=== PATIENT | female | born 1935 | race Caucasian/White ===

== ENCOUNTER 2017-05-01 14:47 | Emergency (ER) | payer MEDICARE ==
[2017-05-01 15:07] VITALS: PULSE 65
--- NOTE | 2017-05-01 16:51 | ED ---
Fall HPI - General Chief Complaint: Fall Stated Complaint: [facility] Sent/Neck Pain Time Seen by Provider: 05/01/17 15:12 Source: patient, family, RN notes reviewed Mode of arrival: ambulatory - History of Present Illness Initial Comments: Patient is a 82-year-old female presents to the emergency room for evaluation of fall injury. Patient states yesterday she was working in the garden turning on the water and slipped on the water and fell hitting left side of her forehead and landing on her right hand. Patient denies loss of consciousness. Patient states that she did have a lump on the left side of her forehead afterwards. Patient states it has subsided after applying ice to it. Patient states she woke up this morning with neck pain. Patient states that she noticed swelling over her right hand. Patient states that she went to [facility] with a did get an x-ray of her hand. Patient states that she sprained her middle finger of her hand. Patient states that nothing was fractured. Patient states because of the neck pain she was sent here to get a CT. Patient denies taking blood thinners. Patient denies any significant headache or dizziness. Patient states she's having neck pain every time she moves her neck from left to right. Patient states she has a grinding sensation every time she moves her neck. Patient denies any tingling going down her arms or legs. Patient denies weakness in her arms and legs. Patient denies any low back pain. Patient denies any other injuries during incident. - Related Data Home Medications Medication Instructions Recorded Confirmed PARoxetine [Paxil] 20 mg PO DAILY 08/10/14 05/01/17 metFORMIN HCL [Glucophage] 850 mg PO BID-W/MEALS 08/10/14 05/01/17 Aspirin 81 mg PO DAILY 12/07/14 05/01/17 Cholecalciferol [Vitamin D3] 2,000 unit PO DAILY 12/07/14 05/01/17 Losartan/Hydrochlorothiazide 1 tab PO DAILY 08/24/16 05/01/17 [Hyzaar 100-12.5 Tablet] Pravastatin Sodium 80 mg PO HS 05/01/17 05/01/17 Allergies Allergy/AdvReac Type Severity Reaction Status Date / Time No Known Allergies Allergy Verified 05/01/17 15:53 Review of Systems ROS Statement: Those systems with pertinent positive or pertinent negative responses have been documented in the HPI. ROS Other: All systems not noted in ROS Statement are negative. Past Medical History Past Medical History: Cancer, Diabetes Mellitus, Hyperlipidemia, Hypertension, Osteoarthritis (OA) Additional Past Medical History / Comment(s): hx of melanoma History of Any Multi-Drug Resistant Organisms: None Reported Past Surgical History: Hysterectomy Past Anesthesia/Blood Transfusion Reactions: No Reported Reaction Past Psychological History: Depression Smoking Status: Never smoker Past Alcohol Use History: None Reported Past Drug Use History: None Reported - Past Family History Father Family Medical History: Myocardial Infarction ([place]) General Exam - General Exam Comments Initial Comments: Sitting in exam room, no distress. C-collar on. Limitations: no limitations, physical limitation General appearance: alert, in no apparent distress Head exam: Present: normocephalic Expanded Head exam: Present: contusion (Small contusion over left forehead) Eye exam: Present: normal appearance, PERRL, EOMI Pupils: Present: normal accommodation Neck exam: Present: normal inspection, tenderness (Tenderness on palpating over bilateral paraspinal muscles) Respiratory exam: Present: normal lung sounds bilaterally. Absent: respiratory distress Cardiovascular Exam: Present: regular rate, normal rhythm, normal heart sounds Extremities exam: Present: normal inspection Back exam: Present: normal inspection Neurological exam: Present: alert, oriented X3, CN II-XII intact, normal gait Psychiatric exam: Present: normal affect, normal mood Skin exam: Present: warm, dry, intact, normal color. Absent: rash Course Vital Signs 05/01/17 05/01/17 15:03 17:13 Temperature 98.6 F 98.9 F Pulse Rate 65 65 Respiratory 20 18 Rate Blood Pressure 200/91 172/79 O2 Sat by Pulse 97 97 Oximetry Medical Decision Making - Medical Decision Making Patient is 82-year-old female since emergency room for evaluation of fall injury. Patient was sent here for [facility] to receive a CT of her brain and C-spine. Brain and C-spine CT negative for any acute findings. Patient does noted to have arthritic changes in her neck which might be causing the grinding sensation. Patient states the Tylenol has been helping her symptoms. Advised patient to continue taking Tylenol to follow-up with her primary care provider. Patient states she understands everything that was discussed with her. Return parameters discussed. Case discussed Dr. Shell. - Radiology Data Radiology results: report reviewed, image reviewed Disposition Clinical Impression: Fall, Closed head injury, Neck strain Disposition: HOME SELF-CARE Condition: Good Instructions: Cervical Strain (ED), Fall Prevention for Older Adults (ED), Head Injury (ED) Additional Instructions: Ice on and off for 10-15 minutes for the next 24-48 hours. Take Tylenol as needed for pain. Please follow-up with primary care provider in 24-48 hours for reevaluation. If new symptoms develop or symptoms worsen, please return to the ER. Referrals: Mehrdad Waldron MD [Primary Care Provider] - 1-2 days Time of Disposition: 17:19
--- NOTE | 2017-05-01 17:04 | CT ---
EXAMINATION TYPE: CT brain tiffany ocampo con DATE OF EXAM: 05/01/2017 COMPARISON: NONE HISTORY: Fall today with Left frontal injury headache and neck pain. CT DLP: 1867 mGycm. Automated Exposure Control for Dose Reduction was Utilized. TECHNIQUE: CT scan of the head and cervical spine are performed without contrast. FINDINGS: There is no acute intracranial hemorrhage or midline shift identified. There is diffuse v entricular and sulcal prominence. The calvarium is intact. The globes are intact and the visualized sinuses are predominately clear. There is small mucous retention cyst or polyp in the posterior left ethmoid sinus. Cervical spine is visualized in its entirety from C1 through upper thoracic levels and demonstrates s atisfactory alignment without evidence of acute fracture or dislocation. Prevertebral soft tissue ap pears within normal limits. The C1-C2 articulation is within normal limits on the coronal images. Osseous structures are demineralized. Vertebral body heights are maintained. There is moderate disc s pace narrowing and spurring at C5-C6 and C6-C7 levels. Sclerotic lesion in the spinous process at C5 level is of uncertain etiology favored benign. There is prominent lateral spurring in the upper to mi dthoracic spine. There is heterogeneous prominent left thyroid lobe. There is rim calcified 1.2 cm no dule and smaller right thyroid lobe on axial image 60. Lung apices are clear with 3 mm calcified subp leural nodule laterally left lung on axial image 73. There is mild to moderate calcified plaque at bi lateral carotid bulbs. There are multilevel uncovertebral facet degenerative changes bilaterally, rig ht greater than left. IMPRESSION: 1. There is no acute fracture or dislocation evident in the cervical spine. 2. No acute intracranial hemorrhage or midline shift is seen. Moderate diffuse cerebral atrophy is no damir.
[2017-05-01 17:14] VITALS: BP 172/79; RESP 18; TEMP 98.9
== END 2017-05-01 17:28 | disposition home or self-care (01) ==
LOC: EC 14:47
DX: S16.1XXA Strain of muscle, fascia and tendon at neck level, initial encounter (principal); S00.83XA Contusion of other part of head, initial encounter; E11.9 Type 2 diabetes mellitus without complications; E78.5 Hyperlipidemia, unspecified; I10 Essential (primary) hypertension; M19.90 Unspecified osteoarthritis, unspecified site; F32.9 Major depressive disorder, single episode, unspecified; Z79.82 Long term (current) use of aspirin; Z79.899 Other long term (current) drug therapy; Z79.84 Long term (current) use of oral hypoglycemic drugs; Z85.820 Personal history of malignant melanoma of skin; W01.10XA Fall on same level from slipping, tripping and stumbling with subsequent striking against unspecified object, initial encounter; Y93.89 Activity, other specified; Y92.89 Other specified places as the place of occurrence of the external cause
CPT/HCPCS: 70450; 72125; 99283

== ENCOUNTER → 2017-07-28 | Outpatient (CLI) | payer MEDICARE ==
--- NOTE | 2017-07-28 10:30 | US ---
EXAMINATION TYPE: US thyroid st tissue head/neck DATE OF EXAM: 07/28/2017 COMPARISON: NONE CLINICAL HISTORY: E05.90 subclinical [address]. Abnormal levels[address] CT showed nodule GLAND SIZE: Right Lobe: 4.1 x 2.1 x 2.0 cm Overall Parenchyma: homogenous Left Lobe: 4.0 x 3.2 x 3.0 cm Overall Parenchyma: heterogeneous Isthmus Thickness: 0.3 cm NODULES RIGHT: # of nodules measured on right: 4 1. 1.7 X 1.5 x 1.5 cm hypoechoic solid nodule at the mid pole with well-defined margins; with a sof t tissue rim outside the calcification. This nodule is taller than wide and shows intranodular vascu larity. Prior size: No previous 2. 0.5 X 0.5 cm calcified solid lesion at the upper pole with shadowing. Prior size: No previous 3. 0.9 X 0.8 x 0.7 cm hypoechoic solid nodule at the lower pole with well-defined margins. This nod ule is taller than wide and shows intranodular vascularity. Prior size: No previous 4. 0.4 X 0.6 x 0.4 cm cystic nodule at the lower pole with well-defined margins. This nodule is wid er than tall and shows no intranodular vascularity. Prior size: No previous LEFT: # of nodules measured on left: 1 1. 3.5 X 2.9 x 2.9 cm isoechoic solid nodule at the mid/lower pole with poorly defined margins. Th is nodule is taller than wide and shows intranodular vascularity. Prior size: No previous ISTHMUS: # of nodules measured in the isthmus: 0 Bilateral neck scanned, no evidence of lymphadenopathy. IMPRESSION: Multiple bilateral thyroid nodules, the largest on the left measures 3.5 cm. This nodule is of modera te suspicion and fine needle aspiration is recommended. Surveillance is recommended for the remaining thyroid nodules.
--- NOTE | 2017-07-29 14:30 | NM ---
EXAMINATION TYPE: NM thyroid image w uptake DATE OF EXAM: 07/29/2017 COMPARISON: Thyroid ultrasound from yesterday. HISTORY: Subclinical hyperthyroidism per order.Weight changes and insomnia per patient. TECHNIQUE: After the intravenous administration of 11.2 mCi Tc 99m Sodium Pertechnetate, thyroid imag ing is performed 10 minutes post injection. Thyroid iodine uptake is calculated after the oral admini stration of20 NM uCi I-131 capsule. FINDINGS: Scan images show diminished uptake in the right thyroid lobe versus opposite left thyroid l obe. There is slightly poor uptake in upper pole aspect of left thyroid versus lower pole. Large lef t thyroid nodule as described lower pole level on ultrasound during real-time scanning. The 4 hour io dine uptake is calculated at 4% (normal range 8-14%), diminished from the normal range. The 24-hour i odine uptake is calculated at 9%, diminished from the normal range (normal range 15-35%). IMPRESSION: Diminished uptake suggest hypothyroidism. Diminished uptake right thyroid lobe is concern ing for cold nodules especially for the dominant right-sided 1.7 cm mid pole solid nodule increasing suspicion for malignancy.
== END | disposition home or self-care (01) ==
LOC: RADUSMAIN 09:23
PROVIDERS: ATTEND Internal Medicine Endocrinology, Diabetes & Metabolism
DX: E04.2 Nontoxic multinodular goiter (principal)
CPT/HCPCS: 76536; 78014; A9528; A9512

== ENCOUNTER → 2017-07-29 | Outpatient (CLI) | payer MEDICARE ==
[2017-07-29 12:07] LABS: ALT 49 U/L (9-52); AST 25 U/L (14-36); Alkaline Phosphatase 107 U/L (38-126); Anion Gap 8 mmol/L; Blood Urea Nitrogen 16 mg/dL (7-17); Calcium 9.9 mg/dL (8.4-10.2); Carbon Dioxide 29 mmol/L (22-30); Chloride 103 mmol/L (98-107); Glucose 223 mg/dL (74-99); Non-African American GFR(MDRD) >60 (>60 ml/min/1.73 sqM); Potassium 4.3 mmol/L (3.5-5.1); Sodium 140 mmol/L (137-145); Total Bilirubin 0.7 mg/dL (0.2-1.3); Total Protein 6.8 g/dL (6.3-8.2)
== END | disposition home or self-care (01) ==
LOC: LABWHC1 10:47
PROVIDERS: ATTEND Internal Medicine Endocrinology, Diabetes & Metabolism
DX: E05.90 Thyrotoxicosis, unspecified without thyrotoxic crisis or storm (principal); N20.0 Calculus of kidney
CPT/HCPCS: 36415; 80053; 83970; 84439; 84443; 84480

== ENCOUNTER 2017-08-08 07:18 | Emergency (ER) | payer MEDICARE ==
--- NOTE | 2017-08-08 07:55 | ED ---
General Adult HPI - General Chief complaint: Recheck/Abnormal Lab/Rx Stated complaint: Blood Pressure Time Seen by Provider: 08/08/17 07:39 Source: patient, RN notes reviewed Mode of arrival: ambulatory Limitations: no limitations - History of Present Illness Initial comments: Patient is a pleasant 82-year-old female presenting to the emergency department with high blood pressure. Patient has had recent thyroid problems and has been anxious regarding this. Patient saw her doctor yesterday and started on thyroid medicine as well as Norvasc 10 mg daily. Patient has not taken her medication yet this morning. Blood pressure at home was as high as 197 systolic. Patient did complain of headache this morning. Patient denies any headache at this time. No weakness or confusion. No chest pain. - Related Data Home Medications Medication Instructions Recorded Confirmed PARoxetine [Paxil] 20 mg PO DAILY 08/10/14 08/08/17 metFORMIN HCL [Glucophage] 850 mg PO BID-W/MEALS 08/10/14 08/08/17 Aspirin 81 mg PO DAILY 12/07/14 08/08/17 Cholecalciferol [Vitamin D3] 2,000 unit PO DAILY 12/07/14 08/08/17 Losartan/Hydrochlorothiazide 1 tab PO DAILY 08/24/16 08/08/17 [Hyzaar 100-12.5 Tablet] Pravastatin Sodium 80 mg PO HS 05/01/17 08/08/17 Methimazole [Tapazole] 2.5 mg PO DAILY 08/08/17 08/08/17 amLODIPine [Norvasc] 10 mg PO DAILY 08/08/17 08/08/17 Allergies Allergy/AdvReac Type Severity Reaction Status Date / Time No Known Allergies Allergy Verified 08/08/17 08:09 Review of Systems ROS Statement: Those systems with pertinent positive or pertinent negative responses have been documented in the HPI. ROS Other: All systems not noted in ROS Statement are negative. Constitutional: Denies: fever Eyes: Denies: eye pain ENT: Denies: ear pain Respiratory: Denies: cough Cardiovascular: Denies: chest pain Endocrine: Denies: fatigue Gastrointestinal: Denies: abdominal pain Genitourinary: Denies: dysuria Musculoskeletal: Denies: back pain Skin: Denies: rash Neurological: Reports: headache (Resolved). Denies: weakness Past Medical History Past Medical History: Cancer, Diabetes Mellitus, Hyperlipidemia, Hypertension, Osteoarthritis (OA) Additional Past Medical History / Comment(s): hx of melanoma History of Any Multi-Drug Resistant Organisms: None Reported Past Surgical History: Hysterectomy Past Anesthesia/Blood Transfusion Reactions: No Reported Reaction Past Psychological History: Depression Smoking Status: Never smoker Past Alcohol Use History: None Reported Past Drug Use History: None Reported - Past Family History Father Family Medical History: Myocardial Infarction ([place]) General Exam Limitations: no limitations General appearance: alert, in no apparent distress Head exam: Present: atraumatic Eye exam: Present: normal appearance, PERRL, EOMI ENT exam: Present: normal oropharynx Neck exam: Present: normal inspection Respiratory exam: Present: normal lung sounds bilaterally Cardiovascular Exam: Present: regular rate, normal rhythm GI/Abdominal exam: Present: soft. Absent: tenderness Neurological exam: Present: alert, CN II-XII intact. Absent: motor sensory deficit Expanded Speech: Present: fluid speech Cranial nerves: EOM's Intact: Normal Motor strength exam: RUE: 5, LUE: 5, RLE: 5, LLE: 5 Eye Response: (4) open spontaneously Motor Response: (6) obeys commands Verbal Response: (5) oriented Psychiatric exam: Present: normal affect, normal mood Skin exam: Present: normal color Course Vital Signs 08/08/17 08/08/17 08/08/17 07:25 07:38 08:44 Temperature 97.5 F L Pulse Rate 69 69 Respiratory 17 16 Rate Blood Pressure 233/102 191/81 184/81 O2 Sat by Pulse 98 98 Oximetry 08/08/17 09:17 Temperature Pulse Rate 59 L Respiratory 18 Rate Blood Pressure 169/72 O2 Sat by Pulse 99 Oximetry Medical Decision Making - Medical Decision Making Patient reevaluated and resting comfortably in bed. Blood pressure is improved. Patient and family updated on results and need for close follow-up including computed tomography scan. Case was also discussed with Dr. Waldron who will follow up with patient Friday and schedule MRI and further evaluation. - Radiology Data Radiology results: image reviewed (Computed tomography scan of the brain shows suspected mass anterior margin left lateral ventricle 1 cm.) Disposition Clinical Impression: Hypertension, Brain mass Disposition: HOME SELF-CARE Condition: Stable Instructions: Hypertension (ED) Additional Instructions: Please follow-up Friday with Dr. Waldron. You will need to have MRI of the brain done. Return for uncontrolled blood pressure, headache, confusion, weakness, worsening symptoms or other concerns. Referrals: Mehrdad Waldron MD [Primary Care Provider] - 1-2 days Time of Disposition: 09:25
--- NOTE | 2017-08-08 08:23 | CT ---
EXAMINATION TYPE: CT brain wo con DATE OF EXAM: 08/08/2017 COMPARISON: 05/01/2017 HISTORY: Headache with history of HTN CT DLP: 1177 mGycm Automated exposure control for dose reduction was used. FINDINGS: There is an extra-axial lesion involving the right anterior temporal fossa which is stable likely rel ated to calcified meningioma measuring 1 cm. No midline shift or mass effect. Generalized degenerative changes stable. There is a lesion within th e anterior margin of the body of the left renal ventricle stable from the previous exam. No acute hemorrhage. Faint periventricular low attenuation noted. Changes of chronic sinusitis noted. IMPRESSION: SUSPECT THERE IS A MASS WITHIN THE ANTERIOR MARGIN OF THE BODY OF THE LEFT LATERAL VENTRICLE MEASURIN G 1 CM. RECOMMEND FOLLOW-UP MRI. DEGENERATIVE CHANGE AND NONSPECIFIC FAINT PERIVENTRICULAR WHITE MATTER FINDINGS WHICH APPEARS SIMILAR TO THE PRIOR EXAM. DIFFERENTIAL DIAGNOSIS WOULD INCLUDE WHITE MATTER ISCHEMIC CHANGE. CORRELATE CLIN ICALLY. SUSPECT A LESS THAN 1 CM CALCIFIED MENINGIOMA ALONG THE ANTERIOR TEMPORAL FOSSA ON THE RIGHT RETROSPE CTIVELY STABLE FROM PREVIOUS EXAM..
[2017-08-08 09:17] VITALS: BP 169/72; PULSE 59; RESP 18
[2017-08-08 09:44] VITALS: TEMP 97.8
== END 2017-08-08 09:44 | disposition home or self-care (01) ==
LOC: EC 07:18
DX: I10 Essential (primary) hypertension (principal); G93.89 Other specified disorders of brain; E78.5 Hyperlipidemia, unspecified; E11.9 Type 2 diabetes mellitus without complications; M19.90 Unspecified osteoarthritis, unspecified site; E07.9 Disorder of thyroid, unspecified; F32.9 Major depressive disorder, single episode, unspecified; Z79.82 Long term (current) use of aspirin; Z79.84 Long term (current) use of oral hypoglycemic drugs; Z79.899 Other long term (current) drug therapy
CPT/HCPCS: 70450; 99283

== ENCOUNTER → 2017-08-22 | Outpatient (CLI) | payer MEDICARE ==
--- NOTE | 2017-08-22 22:05 | MR ---
EXAMINATION TYPE: MR brain wo con DATE OF EXAM: 08/22/2017 5:58 PM COMPARISON: NONE HISTORY: Brain Mass FINDINGS: The ventricles, basal cisterns and sulci overlying the cerebral convexities are moderately enlarged. There is evidence of mild periventricular white matter ischemic demyelination. Within the anterior aspect of the left lateral ventricle there is a 1.1 x 1.2 cm lesion which is of i ntermediate signal on T2-weighted data set and of increased signal on T2 FLAIR axial imaging and inte rmediate signal on the T1-weighted imaging. This lesion is nonspecific and may reflect ependymoma, person bependymoma, central neurocytoma, giant cell astrocytoma , papilloma and meningioma among other proce sses.. Remote deep white matter insults are also noted. No acute edema is seen on diffusion weighted imaging. There is no evidence for midline shift or mass effect. Acute intracranial hemorrhage or extra-axial collection is not evident. The paranasal sinuses and mastoid air cells are well-aerated. IMPRESSION: 1. Nonspecific intraventricular lesion. 2. Age-related atrophic and chronic small vessel ischemic change. No acute intracranial process at this time.
== END | disposition home or self-care (01) ==
LOC: RADMRIMAIN 17:00
PROVIDERS: ATTEND Family Medicine
DX: G31.1 Senile degeneration of brain, not elsewhere classified (principal); I67.82 Cerebral ischemia
CPT/HCPCS: 70551

== ENCOUNTER → 2017-11-26 | Outpatient (CLI) | payer MEDICARE ==
--- NOTE | 2017-11-26 15:48 | MR ---
EXAMINATION TYPE: MR brain wo/w con DATE OF EXAM: 11/26/2017 COMPARISON: Prior MRI brain August 22, 2017. CT brain exams back to May 01, 2017 HISTORY: Follow up for abnormal MRI. Intracranial mass per order. TECHNIQUE: Multiplanar, multisequence images of the brain and brainstem is performed without and with IV contras t, utilizing 10 mL intravenous Gadavist . FINDINGS: Diffusion weighted images demonstrate no evidence of a recent infarct or other diffusion ab normality. There is no worrisome extra-axial fluid collection. There is ventricular and sulcal promi nence consistent with diffuse cerebral atrophy. There are scattered foci T2 hyperintensity seen throu ghout the white matter bilaterally. Lesions are nonspecific in appearance and distribution but most l ikely on basis of product of chronic small vessel ischemic change. Midline structures demonstrate normal morphology. The craniocervical junction appears within normal limits. There is persistent left frontal round intraventricular lesion measuring 11 x 10 mm axial nicole ge 20 not significantly changed back to CT from May 01, 2017. Postcontrast images show mild linear e nhancement along the periphery could reflect adjacent small vessel. No significant internal enhanceme nt is seen. The dural venous sinuses appear patent. Dominant left vertebral artery is incidentally no damir. The visualized sinuses are clear and the globes are intact. IMPRESSION: 1. There is redemonstration of mild to moderate diffuse cerebral atrophy and chronic small vessel isc hemic change. 2. Nonspecific 1.1 cm left frontal horn intraventricular lesion. Lack of significant internal enhance ment and hydrocephalus makes malignant etiology less likely. Consider continued imaging monitoring.
== END | disposition home or self-care (01) ==
LOC: RADMRIMAIN 13:32
PROVIDERS: ATTEND Neurological Surgery
DX: I67.82 Cerebral ischemia (principal); G31.89 Other specified degenerative diseases of nervous system
CPT/HCPCS: 70553; A9581; 82565; 84520

== ENCOUNTER → 2017-11-26 | Outpatient (CLI) | payer MEDICARE | END | disposition home or self-care (01) | LOC: LAB 13:27 | PROVIDERS: ATTEND Neurological Surgery | DX: R22.0 Localized swelling, mass and lump, head (principal) | CPT/HCPCS: 82565; 84520 ==

== ENCOUNTER → 2017-12-08 | Outpatient (CLI) | payer MEDICARE ==
[2017-12-08 11:26] LABS: ALT 36 U/L (9-52); AST 21 U/L (14-36); Albumin 4.3 g/dL (3.5-5.0); Alkaline Phosphatase 80 U/L (38-126); Anion Gap 12 mmol/L; Blood Urea Nitrogen 20 mg/dL (7-17); Calcium 10.5 mg/dL (8.4-10.2); Carbon Dioxide 28 mmol/L (22-30); Chloride 103 mmol/L (98-107); Glucose 158 mg/dL (74-99); Potassium 4.3 mmol/L (3.5-5.1); Sodium 143 mmol/L (137-145); Total Bilirubin 0.7 mg/dL (0.2-1.3); Total Protein 7.1 g/dL (6.3-8.2)
[2017-12-08 11:44] LABS: T4, Free (Free Thyroxine) 0.87 ng/dL (0.78-2.19)
== END | disposition home or self-care (01) ==
LOC: LABWHC1 10:51
PROVIDERS: ATTEND Internal Medicine Endocrinology, Diabetes & Metabolism
DX: E04.2 Nontoxic multinodular goiter (principal); N20.0 Calculus of kidney
CPT/HCPCS: 36415; 80053; 83970; 84439; 84443

== ENCOUNTER → 2018-02-02 | Outpatient (CLI) | payer MEDICARE ==
[2018-02-02 11:18] LABS: Potassium 4.4 mmol/L (3.5-5.1); Total Bilirubin 0.6 mg/dL (0.2-1.3); Total Protein 6.8 g/dL (6.3-8.2)
[2018-02-02 11:31] LABS: T4, Free (Free Thyroxine) 0.85 ng/dL (0.78-2.19)
== END | disposition home or self-care (01) ==
LOC: LABWHC1 10:17
PROVIDERS: ATTEND Internal Medicine Endocrinology, Diabetes & Metabolism
DX: E04.2 Nontoxic multinodular goiter (principal); N20.0 Calculus of kidney
CPT/HCPCS: 36415; 80053; 83970; 84439; 84443

== ENCOUNTER → 2018-05-04 | Outpatient (CLI) | payer MEDICARE ==
[2018-05-04 11:37] LABS: T4, Free (Free Thyroxine) 0.89 ng/dL (0.78-2.19)
== END | disposition home or self-care (01) ==
LOC: LABWHC1 10:19
PROVIDERS: ATTEND Internal Medicine Endocrinology, Diabetes & Metabolism
DX: E05.90 Thyrotoxicosis, unspecified without thyrotoxic crisis or storm (principal)
CPT/HCPCS: 36415; 84439; 84443; 84480

== ENCOUNTER → 2018-06-23 | Outpatient (CLI) | payer MEDICARE ==
--- NOTE | 2018-06-24 10:38 | MR ---
EXAMINATION TYPE: MR brain wo/w con DATE OF EXAM: 06/23/2018 COMPARISON: MRI 11/26/2017 HISTORY: Localized swelling, mass and lump, head CONTRAST: Performed utilizing 7.5 mL intravenous Gadavist gadolinium contrast. TECHNIQUE: Multiplanar, multiecho imaging on a 3.0 Shey magnet is performed through the brain. Stud y is performed within 24 hours of arrival to the hospital. The craniovertebral junction is normal. The pituitary is normal. Diffusion-weighted imaging is performed. No abnormal hyperintensity is present to suggest an acute i ntracranial infarct or acute ischemic change. There are scattered punctate areas of hyperintensity on T2 and Inversion Recovery weighted sequences which are non-specific but can be related to microvascular ischemic changes. Ventricles and sulci are slightly prominent in size for the patient age. These are stable in size fro m comparison. Within the anterior horn left lateral ventricle is again identified a 1.1 x 1.3 cm intraventricular m ass. This is compared to the previous measurement of 1.1 x 1.0 cm. This is T1 hyperintense T2 hypoint ense lesion. This appears to be nonenhancing. No significant hydrocephalus is evident. No temporal ho rn dilatation is evident. The ventricles are normal in position. IMPRESSIONS: 1. There is 1 mm enlargement of the left intra-ventricular mass. No hydrocephalus is evident. 2. Scattered punctate white matter changes stable from comparison.
== END | disposition home or self-care (01) ==
LOC: RADMRIMAIN 09:35
PROVIDERS: ATTEND Neurological Surgery
DX: R22.0 Localized swelling, mass and lump, head (principal)
CPT/HCPCS: 82565; 70553; 36415; A9581

== ENCOUNTER → 2018-06-29 | Outpatient (CLI) | payer MEDICARE ==
[2018-06-29 13:30] LABS: T4, Free (Free Thyroxine) 0.91 ng/dL (0.78-2.19)
== END | disposition home or self-care (01) ==
LOC: LABWHC1 10:35
PROVIDERS: ATTEND Internal Medicine Endocrinology, Diabetes & Metabolism
DX: E05.90 Thyrotoxicosis, unspecified without thyrotoxic crisis or storm (principal)
CPT/HCPCS: 36415; 84439; 84443; 84480

== ENCOUNTER → 2018-06-29 | Outpatient (CLI) | payer MEDICARE ==
--- NOTE | 2018-06-29 12:16 | US ---
EXAMINATION TYPE: US thyroid st tissue head/neck DATE OF EXAM: 06/29/2018 COMPARISON: US 2017 CLINICAL HISTORY: E04.2 nontoxic multinodular goiter; takes thyroid medication GLAND SIZE: Right Lobe: 4.7 x 1.8 x 1.9 cm Overall Parenchyma: heterogenous Left Lobe: 5.3 x 2.8 x 3.4 cm Overall Parenchyma: heterogeneous Isthmus Thickness: 0.3 cm NODULES RIGHT: # of nodules measured on right: 4 1. 0.5 X 0.4 x 0.4 cm hypoechoic solid nodule at the upper pole with poorly defined margins; with p eripheral calcification. This nodule is wide as is tall and shows no intranodular vascularity. Prior size: 0.5 x 0.5 x 0.5 cm 2. 1.6 X 1.5 x 1.5 cm hypoechoic solid nodule at the mid pole with calcified and well defined margin s. This nodule is wide as is tall and shows no intranodular vascularity. This corresponds to the prev iously biopsied lesion. Prior size: 1.7 x 1.5 x 1.5 cm 3. 0.8 X 0.8 x 0.4 cm hypoechoic solid nodule at the lower medial pole with well-defined margins. T his nodule is wider than tall and shows intranodular vascularity. Prior size: not previously seen 4. 0.8 X 0.7 x 0.7 cm hypoechoic solid nodule at the lower lateral pole with well-defined margins. This nodule is wide as is tall and shows no intranodular vascularity. Prior size: 0.9 x 0.8 x 0.7 cm LEFT: # of nodules measured on left: 1 1. 4.2 X 2.9 x 2.9 cm isoechoic solid nodule at the upper through lower pole with well-defined lyndon ins. This nodule is wide as is tall and shows intranodular vascularity. This corresponds to the prev iously biopsied lesion. Prior size: 3.5 x 2.9 x 2.9 cm ISTHMUS: # of nodules measured in the isthmus: 0 Bilateral neck scanned, no evidence of lymphadenopathy. IMPRESSION: 1. Interval growth of the solid left thyroid nodule, however this was previously biopsied on 7. 2. Overall similar size of the multiple right-sided thyroid nodules, the largest was also previously biopsied on 09/18/2017. 3. Findings most compatible with enlarged multinodular goiter.
== END | disposition home or self-care (01) ==
LOC: RADUSWWP 10:45
PROVIDERS: ATTEND Internal Medicine Endocrinology, Diabetes & Metabolism
DX: E04.2 Nontoxic multinodular goiter (principal)
CPT/HCPCS: 76536

== ENCOUNTER 2018-07-16 12:38 | Day surgery (SDC) | payer MEDICARE ==
[2018-07-16] MEDS ORDERED: ALPRAZolam 0.25 MG TAB PO ONE (13:09)
[2018-07-16 13:12] VITALS: RESP 16; TEMP 98.3
[2018-07-16 13:26] LABS: Glucose,Whole Blood 105 mg/dL (75-99)
[2018-07-16 14:28] VITALS: BP 148/72; PULSE 60
--- NOTE | 2018-07-16 14:46 | US ---
ULTRASOUND GUIDED FNA THYROID BIOPSY: CLINICAL HISTORY: Request for FNA of right and left thyroid nodule FINDINGS: The procedure was explained to the patient. The risks, complications, benefits and alternatives were discussed and any questions were answered. Informed consent was obtained. Patient was placed supin e on the ultrasound table and prepped and draped in the usual sterile fashion. Utilizing a 25 gauge needle, five passes were made into the right and left thyroid nodule requested. Note is made that the right thyroid nodule is heavily calcified which may lower diagnostic yield. Patient was stable throughout the procedure. Pathology is pending. All elements of maximal barrier technique were utilized. IMPRESSION: 1. Successful ultrasound guided FNA thyroid biopsy.
== END 2018-07-16 14:40 | disposition home or self-care (01) ==
LOC: RADPROMAIN 12:38
PROVIDERS: ATTEND Internal Medicine Endocrinology, Diabetes & Metabolism
DX: E04.2 Nontoxic multinodular goiter (principal)
CPT/HCPCS: 10022; 76942; 88173; 88305

== ENCOUNTER → 2018-12-21 | Outpatient (CLI) | payer MEDICARE ==
--- NOTE | 2018-12-21 14:14 | MR ---
EXAMINATION TYPE: MR brain wo/w con DATE OF EXAM: 12/21/2018 COMPARISON: 06/23/2018 HISTORY: F/U mass TECHNIQUE: Multiplanar, multisequence images of the brain and brainstem is performed without and with IV contras t, utilizing 8.5 mL intravenous Gadavist . FINDINGS: Diffusion weighted images demonstrate no evidence of a recent infarct or other diffusion ab normality. Generalized degenerative change seen and there are multiple areas of abnormal signal withi n the white matter bilaterally which are nonspecific but most remote microvascular ischemia. Midline structures demonstrate normal morphology. The craniocervical junction appears within normal limits. Post contrast images demonstrate no abnormal enhancement. The dural venous sinuses appear pa tent. Changes of chronic sinusitis noted. Within the anterior horn left lateral ventricle is again identified a 1.1 x 1.3 cm intraventricular m ass. This is compared to the previous measurement of 1.1 x 1.0 cm. This is T1 hyperintense T2 hypoint ense lesion. This appears to be nonenhancing. No significant hydrocephalus is evident. No temporal ho rn dilatation is evident. The ventricles are normal in position. IMPRESSION: 1. 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 No hydrocephalus. 2. Stable nonspecific white matter changes most typical remote microvascular ischemia.
== END | disposition home or self-care (01) ==
LOC: RADMRIMAIN 11:49
PROVIDERS: ATTEND Neurological Surgery
DX: G93.89 Other specified disorders of brain (principal); R22.0 Localized swelling, mass and lump, head
CPT/HCPCS: 82565; 70553; 36415; A9585

== ENCOUNTER → 2019-01-20 | Outpatient (CLI) | payer MEDICARE ==
--- NOTE | 2019-01-20 10:40 | US ---
EXAMINATION TYPE: US thyroid st tissue head/neck DATE OF EXAM: 01/20/2019 COMPARISON: Prior thyroid ultrasound June 29, 2018 CLINICAL HISTORY: E04.2 Nontoxic multinodular goiter. F/U GLAND SIZE: Right Lobe: 4.5 x 1.7 x 2.0 cm Overall Parenchyma: heterogenous Left Lobe: 6.1 x 3.0 x 3.1 cm Overall Parenchyma: heterogeneous Isthmus Thickness: cm NODULES RIGHT: # of nodules measured on right: 3 1. 0.5 X 0.5 x 0.5 cm hypoechoic solid nodule at the upper pole with well-defined margins; calcifie d rim. This nodule is wider than tall and shows no intranodular vascularity. Prior size: 0.5 x 0.4 x 0.4 cm 2. 1.6 X 1.7 x 1.4 cm hypoechoic solid nodule at the mid pole with well-defined margins; calcified r im. This nodule is wider than tall and shows no intranodular vascularity. Prior size: 1.6 x 1.5 x 1.5 cm 3. 0.9 X 0.7 x 0.9 cm hypoechoic solid nodule at the lower pole with well-defined margins; This no dule is wider than tall and shows intranodular vascularity. Prior size: 0.9 x 0.7 x 0.7 cm LEFT: # of nodules measured on left: 1 1. 4.1 X 2.8 x 3.0 cm isoechoic solid nodule at the mid pole with well-defined margins; This nodul e is wider than tall and shows intranodular vascularity. Prior size: 4.2 x 2.9 x 2.9 cm Bilateral neck scanned, no evidence of lymphadenopathy. Stable nodules bilaterally. Heterogeneous multinodular thyroid gland is redemonstrated with asymmetric left lobe enlargement. Nod ules including largest nodule left thyroid are grossly stable. IMPRESSION: Findings consistent with enlarged multinodular goiter redemonstrated without significant interval quincy nge.
== END | disposition home or self-care (01) ==
LOC: RADUSWWP 09:59
PROVIDERS: ATTEND Internal Medicine Endocrinology, Diabetes & Metabolism
DX: E04.2 Nontoxic multinodular goiter (principal)
CPT/HCPCS: 76536

== ENCOUNTER → 2019-04-19 | Outpatient (CLI) | payer MEDICARE | END | disposition home or self-care (01) | LOC: LABWHC1 10:03 | PROVIDERS: ATTEND Internal Medicine Endocrinology, Diabetes & Metabolism | DX: E05.90 Thyrotoxicosis, unspecified without thyrotoxic crisis or storm (principal) | CPT/HCPCS: 36415; 84439; 84443; 84480 ==

== ENCOUNTER → 2019-07-12 | Outpatient (CLI) | payer MEDICARE ==
[2019-07-12 23:40] LABS: T4, Free (Free Thyroxine) 0.9 ng/dL (0.80-1.80)
== END | disposition home or self-care (01) ==
LOC: LABWHC1 13:38
PROVIDERS: ATTEND Internal Medicine Endocrinology, Diabetes & Metabolism
DX: E05.80 Other thyrotoxicosis without thyrotoxic crisis or storm (principal)
CPT/HCPCS: 36415; 84439; 84443; 84480

== ENCOUNTER → 2019-10-21 | Outpatient (CLI) | payer MEDICARE ==
[2019-10-21 20:22] LABS: T4, Free (Free Thyroxine) 0.9 ng/dL (0.80-1.80)
== END | disposition home or self-care (01) ==
LOC: LABWHC1 11:33
PROVIDERS: ATTEND Internal Medicine Endocrinology, Diabetes & Metabolism
DX: E05.90 Thyrotoxicosis, unspecified without thyrotoxic crisis or storm (principal)
CPT/HCPCS: 36415; 84439; 84443; 84480

== ENCOUNTER → 2020-01-03 | Outpatient (CLI) | payer MEDICARE ==
--- NOTE | 2020-01-03 22:41 | MR ---
EXAMINATION TYPE: MR brain wo/w con DATE OF EXAM: 01/03/2020 COMPARISON: 12/21/2018 HISTORY: F/U to known brain tumor TECHNIQUE: Multiplanar, multisequence images of the brain and brainstem is performed without and with IV contras t, utilizing 8.5 mL intravenous Gadavist . FINDINGS: Diffusion weighted images demonstrate no evidence of a recent infarct or other diffusion ab normality. Generalized degenerative change seen and there are multiple areas of abnormal signal with in the white matter bilaterally which are nonspecific but most remote microvascular ischemia. Midline structures demonstrate normal morphology. The craniocervical junction appears within normal limits. Changes of chronic sinusitis are noted. Orbits are symmetric. Within the anterior horn left lateral ventricle is again identified a 1.1 x 1.3 cm intraventricular m ass. This is compared to the previous measurement of 1.1 x 1.0 cm. This is T1 hyperintense T2 hypoint ense lesion. This appears to be nonenhancing. No significant hydrocephalus is evident. No temporal ho rn dilatation is evident. The ventricles are normal in position. In the right anterior temporal fossa there is a 3 mm area of dural thickening which could represent a tiny meningioma best noted on axial image [id number]. IMPRESSION: 1. 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 No hydrocephalus. Due to the lack of enhancement favor a subependymoma. 2. Stable nonspecific white matter changes most typical remote microvascular ischemia. 3. Questionable tiny 3 mm anterior temporal fossa meningioma with no mass effect.
== END | disposition home or self-care (01) ==
LOC: RADMRIMAIN 15:38
PROVIDERS: ATTEND Neurological Surgery
DX: I67.82 Cerebral ischemia (principal); R90.89 Other abnormal findings on diagnostic imaging of central nervous system
CPT/HCPCS: 70553; A9585

== ENCOUNTER → 2020-04-05 | Outpatient (CLI) | payer MEDICARE ==
[2020-04-05 15:19] LABS: T4, Free (Free Thyroxine) 1.2 ng/dL (0.80-1.80)
== END | disposition home or self-care (01) ==
LOC: LABWHC1 07:41
PROVIDERS: ATTEND Internal Medicine Endocrinology, Diabetes & Metabolism
DX: E05.90 Thyrotoxicosis, unspecified without thyrotoxic crisis or storm (principal)
CPT/HCPCS: 36415; 84439; 84443; 84480

== ENCOUNTER → 2020-04-07 | Outpatient (CLI) | payer MEDICARE ==
--- NOTE | 2020-04-07 15:02 | US ---
EXAMINATION TYPE: US thyroid st tissue head/neck DATE OF EXAM: 04/07/2020 COMPARISON: 01/20/2019 CLINICAL HISTORY: E04.2 Thyroid nodule. GLAND SIZE: Right Lobe: 3.5 x 1.8 x 1.9 cm Overall Parenchyma: heterogenous Left Lobe: 5.0 x 3.3 x 3.9 cm Overall Parenchyma: heterogeneous Isthmus Thickness: 0.3 cm NODULES RIGHT: # of nodules measured on right: 3 1. 0.5 x 0.6 x 0.5 cm hypoechoic solid nodule at the upper pole with well-defined margins; with cezar pheral calcification. This nodule is wider than tall and shows no intranodular vascularity. Prior size: 0.5 x 0.4 x 0.4 cm 2. 1.3 X 1.1 x 1.5 cm, hypoechoic solid nodule at the upper pole with well-defined margins; with per ipheral calcification. This nodule is wider than tall and shows no intranodular vascularity. Prior size: 1.6 x 1.7 x 1.4 cm 3. 0.8 X 0.7 x 0.8 cm hypoechoic solid nodule at the lower pole with well-defined margins. This nod ule is wider than tall and shows . Prior size: 0.9 x 0.7 x 0.7 cm LEFT: # of nodules measured on left: 1 1. 4.1 X 2.8 x 3.5 cm isoechoic solid nodule at the mid pole with well-defined margins. This nodul e is wider than tall and shows intranodular vascularity. Prior size: 4.1 x 2.8 x 3.0 cm ISTHMUS: # of nodules measured in the isthmus: 0 Bilateral neck scanned, no evidence of lymphadenopathy. IMPRESSION: Similar size of the bilateral thyroid nodules in this patient with multinodular goiter. M ultiple prior fine-needle aspirations have been performed.
== END | disposition home or self-care (01) ==
LOC: RADUSWWP 14:17
PROVIDERS: ATTEND Internal Medicine Endocrinology, Diabetes & Metabolism
DX: E04.2 Nontoxic multinodular goiter (principal)
CPT/HCPCS: 76536

== ENCOUNTER 2020-10-04 09:01 | Inpatient (IN) | payer MEDICARE ==
[2020-10-04 09:42] LABS: Appearance,Urine Clear (Clear); Bacteria,Urine Rare /hpf; Bilirubin,Urine Negative (Negative); Blood,Urine Large (Negative); Color,Urine Yellow; Glucose,Urine (UA) 1+ (Negative); Ketones,Urine Negative (Negative); Leukocyte Esterase,Urine Negative (Negative); Mucus,Urine Few /hpf; Nitrite,Urine Negative (Negative); Protein,Urine 1+ (Negative); RBC,Urine >182 /hpf (0-5); Specific Gravity,Urine 1.028 (1.001-1.035); Squamous Epithelial Cell,Urine <1 /hpf (0-4); Urobilinogen,Urine <2.0 mg/dL (<2.0); WBC,Urine 3 /hpf (0-5)
[2020-10-04] MEDS ORDERED: SODIUM CHLORIDE 0.9% 1,000 ML IV ONE (09:50)
[2020-10-04] MEDS ORDERED: MORPHINE SULFATE 4 MG/ML SYRINGE IVP STA (09:50)
[2020-10-04 10:22] LABS: Potassium 4.1 mmol/L (3.5-5.1)
[2020-10-04 10:23] LABS: Calcium 10.5 mg/dL (8.4-10.2); Total Protein 6.9 g/dL (6.3-8.2)
[2020-10-04 10:27] LABS: Basophils # (A) 0.1 k/uL (0-0.2); Basophils % (A) 1 %; Eosinophils # (A) 0.1 k/uL (0-0.7); Eosinophils % (A) 1 %; HCT 40.5 % (34.0-46.0); HGB 14.6 gm/dL (11.4-16.0); Lymphocytes # (A) 1.1 k/uL (1.0-4.8); Lymphocytes % (A) 12 %; MCH 31.3 pg (25.0-35.0); MCV 86.9 fL (80.0-100.0); Mean Platelet Volume 7.7; Monocytes % (A) 10 %; Neutrophils # (A) 7.1 k/uL (1.3-7.7); Neutrophils % (A) 75 %; Platelet Count 113 k/uL (150-450); RBC 4.66 m/uL (3.80-5.40); RDW 13.6 % (11.5-15.5); WBC 9.4 k/uL (3.8-10.6)
[2020-10-04 10:39] LABS: INR 1.1 (<1.2); Partial Thromboplastin Time 23.6 sec (22.0-30.0)
--- NOTE | 2020-10-04 11:20 | ED ---
Abdominal Pain HPI - General Chief Complaint: Abdominal Pain Stated Complaint: back & abd pain/blood in urine Time Seen by Provider: 10/04/20 09:05 Source: patient Mode of arrival: ambulatory Limitations: no limitations - History of Present Illness Initial Comments: Patient is an 85-year-old female with past medical history of nephrolithiasis, diabetes who presents to the emergency department with reported right sided low back pain and bilateral lower abdominal pain. Ernesto is at bedside and provides the history. States that she has had a history of nephrolithiasis and began having blood in her urine yesterday. She did take some Tylenol without i mprovement in her pain. Reports that it is 10 out of 10. No radiating pain into the lower extremities. No lower extremity weakness. She denies any changes in her bowel habits. No consultation, diarrhea, melenic stools or hematochezia. No vaginal bleeding. Patient denies any fevers or chills. No nausea or vomiting. Denies any chest pain or shortness of breath. No other alleviating, Perceptin or modifying factors - Related Data Home Medications Medication Instructions Recorded Confirmed PARoxetine [Paxil] 20 mg PO DAILY 08/10/14 10/04/20 metFORMIN HCL [Glucophage] 850 mg PO BID-W/MEALS 08/10/14 10/04/20 Aspirin 81 mg PO DAILY 12/07/14 10/04/20 Cholecalciferol [Vitamin D3 (25 2,000 unit PO DAILY 12/07/14 10/04/20 Mcg = 1000 Iu)] Losartan/Hydrochlorothiazide 1 tab PO DAILY 08/24/16 10/04/20 [Hyzaar 100-12.5 Tablet] Pravastatin Sodium 80 mg PO HS 05/01/17 10/04/20 amLODIPine [Norvasc] 10 mg PO DAILY 08/08/17 10/04/20 LORazepam [Ativan] 0.5 mg PO DAILY 08/27/17 10/04/20 Methimazole [Tapazole] 2.5 mg PO DAILY 09/17/17 10/04/20 Allergies Allergy/AdvReac Type Severity Reaction Status Date / Time No Known Allergies Allergy Verified 10/04/20 12:08 Review of Systems ROS Statement: Those systems with pertinent positive or pertinent negative responses have been documented in the HPI. ROS Other: All systems not noted in ROS Statement are negative. Past Medical History Past Medical History: Cancer, Diabetes Mellitus, Hyperlipidemia, Hypertension, Osteoarthritis (OA), Thyroid Disorder Additional Past Medical History / Comment(s): hx of melanoma, stable mass on brain they are currently watching patient is aymptomatic. Previous thyroid nodules. History of Any Multi-Drug Resistant Organisms: None Reported Past Surgical History: Hysterectomy Past Anesthesia/Blood Transfusion Reactions: No Reported Reaction Past Psychological History: Depression Smoking Status: Never smoker Past Alcohol Use History: None Reported Past Drug Use History: None Reported - Past Family History Father Family Medical History: Myocardial Infarction ([place]) General Exam Limitations: no limitations Course Vital Signs 10/04/20 10/04/20 10/04/20 09:04 12:18 14:53 Temperature 98 F 97.8 F Pulse Rate 82 60 Pulse Rate [ 62 Pulse Oximetery ] Respiratory 18 18 20 Rate Blood Pressure 161/82 161/78 Blood Pressure 167/71 [Right Arm Sitting] O2 Sat by Pulse 96 97 93 L Oximetry 10/04/20 15:11 Temperature 97.8 F Pulse Rate Pulse Rate [ 62 Pulse Oximetery ] Respiratory 20 Rate Blood Pressure Blood Pressure 167/71 [Right Arm Sitting] O2 Sat by Pulse 93 L Oximetry Medical Decision Making - Medical Decision Making Upon arrival the patient is placed into room 17. There are history of physical exam was performed. Periphery is established the patient was given 4 mg of morphine. The treated for conducted and CT was performed. Laboratory studies demonstrate hematuria with few bacteria. CT demonstrates a proximal left ureteral stone with left hydronephrosis patient was given a dose of antibiotics. She is reevaluated and continues to have pain over she was given Toradol. Further evaluation demonstrates that the patient states her pain is worsened when she came in. I recommended hospital admission for uncontrolled pain for which the patient agreed to. Discussed the case with Dr. Loo accepted admission. Patient is made nothing by mouth for possible surgery - Lab Data Result diagrams: 10/04/20 09:56 10/04/20 09:56 Lab Results 10/04/20 10/04/20 10/04/20 Range/Units 09:19 09:56 09:56 WBC 9.4 (3.8-10.6) k/uL RBC 4.66 (3.80-5.40) m/uL Hgb 14.6 (11.4-16.0) gm/dL Hct 40.5 (34.0-46.0) % MCV 86.9 (80.0-100.0) fL MCH 31.3 (25.0-35.0) pg MCHC 36.0 (31.0-37.0) g/dL RDW 13.6 (11.5-15.5) % Plt Count 113 L (150-450) k/uL MPV 7.7 Neutrophils % 75 % Lymphocytes % 12 % Monocytes % 10 % Eosinophils % 1 % Basophils % 1 % Neutrophils # 7.1 (1.3-7.7) k/uL Lymphocytes # 1.1 (1.0-4.8) k/uL Monocytes # 1.0 (0-1.0) k/uL Eosinophils # 0.1 (0-0.7) k/uL Basophils # 0.1 (0-0.2) k/uL PT 11.0 (9.0-12.0) sec INR 1.1 (<1.2) APTT 23.6 (22.0-30.0) sec Sodium (137-145) mmol/L Potassium (3.5-5.1) mmol/L Chloride (98-107) mmol/L Carbon Dioxide (22-30) mmol/L Anion Gap mmol/L BUN (7-17) mg/dL Creatinine (0.52-1.04) mg/dL Est GFR (CKD-EPI)AfAm (>60 ml/min/1.73 sqM) Est GFR (CKD-EPI)NonAf (>60 ml/min/1.73 sqM) Glucose (74-99) mg/dL Calcium (8.4-10.2) mg/dL Total Bilirubin (0.2-1.3) mg/dL AST (14-36) U/L ALT (4-34) U/L Alkaline Phosphatase (38-126) U/L Total Protein (6.3-8.2) g/dL Albumin (3.5-5.0) g/dL Lipase (23-300) U/L Urine Color Yellow Urine Appearance Clear (Clear) Urine pH 6.0 (5.0-8.0) Ur Specific Frakes 1.028 (1.001-1.035) Urine Protein 1+ H (Negative) Urine Glucose (UA) 1+ H (Negative) Urine Ketones Negative (Negative) Urine Blood Large H (Negative) Urine Nitrite Negative (Negative) Urine Bilirubin Negative (Negative) Urine Urobilinogen <2.0 (<2.0) mg/dL Ur Leukocyte Esterase Negative (Negative) Urine RBC >182 H (0-5) /hpf Urine WBC 3 (0-5) /hpf Ur Squamous Epith Cells <1 (0-4) /hpf Urine Bacteria Rare H (None) /hpf Urine Mucus Few H (None) /hpf 10/04/20 Range/Units 09:56 WBC (3.8-10.6) k/uL RBC (3.80-5.40) m/uL Hgb (11.4-16.0) gm/dL Hct (34.0-46.0) % MCV (80.0-100.0) fL MCH (25.0-35.0) pg MCHC (31.0-37.0) g/dL RDW (11.5-15.5) % Plt Count (150-450) k/uL MPV Neutrophils % % Lymphocytes % % Monocytes % % Eosinophils % % Basophils % % Neutrophils # (1.3-7.7) k/uL Lymphocytes # (1.0-4.8) k/uL Monocytes # (0-1.0) k/uL Eosinophils # (0-0.7) k/uL Basophils # (0-0.2) k/uL PT (9.0-12.0) sec INR (<1.2) APTT (22.0-30.0) sec Sodium 136 L (137-145) mmol/L Potassium 4.1 (3.5-5.1) mmol/L Chloride 102 (98-107) mmol/L Carbon Dioxide 29 (22-30) mmol/L Anion Gap 5 mmol/L BUN 15 (7-17) mg/dL Creatinine 0.87 (0.52-1.04) mg/dL Est GFR (CKD-EPI)AfAm 71 (>60 ml/min/1.73 sqM) Est GFR (CKD-EPI)NonAf 62 (>60 ml/min/1.73 sqM) Glucose 263 H (74-99) mg/dL Calcium 10.5 H (8.4-10.2) mg/dL Total Bilirubin 1.0 (0.2-1.3) mg/dL AST 22 (14-36) U/L ALT 24 (4-34) U/L Alkaline Phosphatase 98 (38-126) U/L Total Protein 6.9 (6.3-8.2) g/dL Albumin 4.0 (3.5-5.0) g/dL Lipase 96 (23-300) U/L Urine Color Urine Appearance (Clear) Urine pH (5.0-8.0) Ur Specific Frakes (1.001-1.035) Urine Protein (Negative) Urine Glucose (UA) (Negative) Urine Ketones (Negative) Urine Blood (Negative) Urine Nitrite (Negative) Urine Bilirubin (Negative) Urine Urobilinogen (<2.0) mg/dL Ur Leukocyte Esterase (Negative) Urine RBC (0-5) /hpf Urine WBC (0-5) /hpf Ur Squamous Epith Cells (0-4) /hpf Urine Bacteria (None) /hpf Urine Mucus (None) /hpf Disposition Clinical Impression: Ureteral stone Disposition: ADMITTED IP TO THIS [facility] Condition: Stable Is patient prescribed a controlled substance at d/c from ED?: No Decision to Admit Reason: Admit from EC Decision Date: 10/04/20 Decision Time: 12:29
--- NOTE | 2020-10-04 11:35 | CT ---
EXAMINATION TYPE: CT abdomen pelvis w con DATE OF EXAM: 10/04/2020 COMPARISON: 10/27/2017 INDICATION: Abd pain DLP: 1298.3 mGycm, Automated exposure control for dose reduction was used. CONTRAST: 100 mL of Isovue 300. Study performed without Oral Contrast TECHNIQUE: Axial images were obtained from above the diaphragm to the pubic rami in the axial plane a t 5 mm thick sections. Reconstructed images are reviewed on the computer in the coronal plane. FINDINGS: Limited CT sections are obtained the lung bases. The lung bases are clear. Minimal coronary artery calcification is noted. CT ABDOMEN: Liver: There is mild fatty obliteration liver. No discrete masses or cysts are evident. Spleen: Normal Pancreas: Normal Adrenal glands: The adrenal glands are normal. Gallbladder: Large gallstone is present. Kidneys: There is subtle delayed excretion on the left kidney compared to the right. On delayed image s contrast is within the cortex but not within the collecting system. There is a proximal left ureter al calcification measuring 0.4 cm. Series 301 image 32. No masses are evident. Mild left hydronephros is is present. No cysts are present. Aorta: Vascular calcification is within the aorta. Inferior vena cava: Normal. CT PELVIS: Loops of bowel within the abdomen and pelvis are normal. This study is without oral contrast limi ting bowel evaluation. Appendix: Not identified. No suspicious inflammatory changes or dilated tubular structures are eviden t. Urinary bladder: Normal. Genitourinary structures: There appear to be multiple phleboliths within the lower pelvis. Uterus and ovaries are not identified. Osseous structures: No suspicious lytic or sclerotic lesions. IMPRESSIONS: 1. 0.4 cm obstructing proximal left ureteral stone with mild left hydronephrosis. 2. Cholelithiasis. 3 mild fatty infiltration of the liver.
[2020-10-04] MEDS ORDERED: cefTRIAXone IN SWFI 1,000 MG/10 ML SYRINGE IVP STA (12:28)
[2020-10-04] MEDS ORDERED: KETOROLAC 15 MG/ML 1 ML VIAL IVP STA (12:28)
[2020-10-04] MEDS ORDERED: KETOROLAC 15 MG/ML 1 ML VIAL IVP PRN (12:29)
[2020-10-04] MEDS ORDERED: NALOXONE 0.4 MG/ML 1 ML VIAL IV PRN (12:29)
[2020-10-04] MEDS: SODIUM CHLORIDE 0.9% 1,000 ML IV SCH ×2 (12:42→21:00)
[2020-10-04 13:05] LABS: Glucose,Whole Blood 171 mg/dL (75-99)
--- NOTE | 2020-10-04 14:12 | P.GSCN ---
History of Present Illness Consult date: 10/04/20 Reason for Consult: Left-sided ureteral stone History of present illness: Ms donovan is an 85-year-old female presented to the ED with left-sided flank pain. She had a CT scan done which showed a 4 mm left-sided proximal stone. Patient has been having intractable pain secondary to stone, no improvement of pain despite IV pain medications. Of note patient has history of recurrent kidney stones, and history of sepsis secondary to her kidney stones. On evaluation she still having left flank pain with nausea. Denies any fevers, chills, dysuria, gross hematuria. Review of Systems - Constitutional Denies chills, Denies fever - EENT Ears, nose, mouth and throat: Denies dysphagia - Cardiovascular Denies chest pain, Denies shortness of breath - Respiratory Denies cough, Denies 7 - Gastrointestinal Reports nausea - Genitourinary Genitourinary: Reports flank pain, Denies dysuria, Denies hematuria - Neurological Denies headaches, Denies syncope Past Medical History Past Medical History: Cancer, Diabetes Mellitus, Hyperlipidemia, Hypertension, Osteoarthritis (OA), Thyroid Disorder Additional Past Medical History / Comment(s): hx of melanoma, stable mass on brain they are currently watching patient is aymptomatic. Previous thyroid nodules. History of Any Multi-Drug Resistant Organisms: None Reported Past Surgical History: Hysterectomy Past Anesthesia/Blood Transfusion Reactions: No Reported Reaction Past Psychological History: Depression Smoking Status: Never smoker Past Alcohol Use History: None Reported Past Drug Use History: None Reported - Past Family History Father Family Medical History: Myocardial Infarction ([place]) Medications and Allergies Home Medications Medication Instructions Recorded Confirmed Type PARoxetine [Paxil] 20 mg PO DAILY 08/10/14 10/04/20 History metFORMIN HCL [Glucophage] 850 mg PO BID-W/MEALS 08/10/14 10/04/20 History Aspirin 81 mg PO DAILY 12/07/14 10/04/20 History Cholecalciferol [Vitamin D3 (25 2,000 unit PO DAILY 12/07/14 10/04/20 History Mcg = 1000 Iu)] Losartan/Hydrochlorothiazide 1 tab PO DAILY 08/24/16 10/04/20 History [Hyzaar 100-12.5 Tablet] Pravastatin Sodium 80 mg PO HS 05/01/17 10/04/20 History amLODIPine [Norvasc] 10 mg PO DAILY 08/08/17 10/04/20 History LORazepam [Ativan] 0.5 mg PO DAILY 08/27/17 10/04/20 History Methimazole [Tapazole] 2.5 mg PO DAILY 09/17/17 10/04/20 History Allergies Allergy/AdvReac Type Severity Reaction Status Date / Time No Known Allergies Allergy Verified 10/04/20 12:08 Surgical - Exam Vital Signs Temp Pulse Resp BP Pulse Ox 98 F 82 18 161/82 96 10/04/20 09:04 10/04/20 09:04 10/04/20 09:04 10/04/20 09:04 10/04/20 09:04 - General well developed, well nourished, moderate distress, moderate pain - Eyes PERRL, normal ocular movement - ENT normal nares, normal mucosa - Respiratory normal expansion, normal respiratory effort - Abdomen Abdomen: soft, no distended - Psychiatric oriented to time, oriented to person, oriented to place, speech is normal Results - Labs 10/04/20 09:56 10/04/20 09:56 Abnormal Lab Results - Last 24 Hours (Table) 10/04/20 10/04/20 10/04/20 Range/Units 09:19 09:56 09:56 Plt Count 113 L (150-450) k/uL Sodium 136 L (137-145) mmol/L Glucose 263 H (74-99) mg/dL POC Glucose (mg/dL) (75-99) mg/dL Calcium 10.5 H (8.4-10.2) mg/dL Urine Protein 1+ H (Negative) Urine Glucose (UA) 1+ H (Negative) Urine Blood Large H (Negative) Urine RBC >182 H (0-5) /hpf Urine Bacteria Rare H (None) /hpf Urine Mucus Few H (None) /hpf 10/04/20 Range/Units 13:04 Plt Count (150-450) k/uL Sodium (137-145) mmol/L Glucose (74-99) mg/dL POC Glucose (mg/dL) 171 H (75-99) mg/dL Calcium (8.4-10.2) mg/dL Urine Protein (Negative) Urine Glucose (UA) (Negative) Urine Blood (Negative) Urine RBC (0-5) /hpf Urine Bacteria (None) /hpf Urine Mucus (None) /hpf Diabetes panel 10/04/20 Range/Units 09:56 Sodium 136 L (137-145) mmol/L Potassium 4.1 (3.5-5.1) mmol/L Chloride 102 (98-107) mmol/L Carbon Dioxide 29 (22-30) mmol/L BUN 15 (7-17) mg/dL Creatinine 0.87 (0.52-1.04) mg/dL Glucose 263 H (74-99) mg/dL Calcium 10.5 H (8.4-10.2) mg/dL AST 22 (14-36) U/L ALT 24 (4-34) U/L Alkaline Phosphatase 98 (38-126) U/L Total Protein 6.9 (6.3-8.2) g/dL Albumin 4.0 (3.5-5.0) g/dL Calcium panel 10/04/20 Range/Units 09:56 Calcium 10.5 H (8.4-10.2) mg/dL Albumin 4.0 (3.5-5.0) g/dL Pituitary panel 10/04/20 Range/Units 09:56 Sodium 136 L (137-145) mmol/L Potassium 4.1 (3.5-5.1) mmol/L Chloride 102 (98-107) mmol/L Carbon Dioxide 29 (22-30) mmol/L BUN 15 (7-17) mg/dL Creatinine 0.87 (0.52-1.04) mg/dL Glucose 263 H (74-99) mg/dL Calcium 10.5 H (8.4-10.2) mg/dL Adrenal panel 10/04/20 Range/Units 09:56 Sodium 136 L (137-145) mmol/L Potassium 4.1 (3.5-5.1) mmol/L Chloride 102 (98-107) mmol/L Carbon Dioxide 29 (22-30) mmol/L BUN 15 (7-17) mg/dL Creatinine 0.87 (0.52-1.04) mg/dL Glucose 263 H (74-99) mg/dL Calcium 10.5 H (8.4-10.2) mg/dL Total Bilirubin 1.0 (0.2-1.3) mg/dL AST 22 (14-36) U/L ALT 24 (4-34) U/L Alkaline Phosphatase 98 (38-126) U/L Total Protein 6.9 (6.3-8.2) g/dL Albumin 4.0 (3.5-5.0) g/dL - Imaging CT scan - abdomen: image reviewed (4 mm left-sided ureteral stone) Assessment and Plan Assessment: 85-year-old female with a history of a 4 mm left-sided proximal stone. She is been having intractable pain secondary to her stone. The option of left-sided ureteroscopy was discussed with her. Discussed with her the risk which includes but not limited to bleeding, infection, ureteral injury. I discussed with her that if the stone is impacted then we will proceed with stent placement followed by ureteroscopy in approximately 3-4 weeks. She understood all the risks and agree to proceed with left-sided ureteroscopy, holmium laser lithotripsy, stone basketing, and stent placement Plan: -Keep NPO -OR for left-sided ureteroscopy, holmium laser lithotripsy, stone basketing, and stent placement
[2020-10-04] MEDS ORDERED: LACTATED RINGERS 1,000 ML IV ONE (14:51)
[2020-10-04] MEDS ORDERED: ONDANSETRON 4 MG/2 ML VIAL ONE (15:18)
[2020-10-04 15:24] LABS: Glucose,Whole Blood 153 mg/dL (75-99)
[2020-10-04] MEDS ORDERED: fentaNYL (PF) 50 MCG/ML 2 ML AMP ONE (15:55)
[2020-10-04] MEDS ORDERED: ePHEDrine SULFATE/0.9% NACL/PF 50 MG/5 ML SYRINGE IV ONE (15:55)
[2020-10-04] MEDS ORDERED: GENTAMICIN 40 MG/ML 2 ML VIAL ONE (15:55)
[2020-10-04] MEDS ORDERED: LIDOCAINE 1% INJ 10MG/ML (20 ML MDV) ONE (15:55)
[2020-10-04] MEDS ORDERED: PROPOFOL 10 MG/ML 20 ML VIAL IV ONE (15:55)
[2020-10-04] MEDS ORDERED: SODIUM CHLORIDE 0.9% 100 ML with GENTAMICIN 80 MG IV ONE ×2 (16:03)
[2020-10-04] MEDS ORDERED: IOPAMIDOL-370 50ML BTL IRRIGATION ONE (16:28)
--- NOTE | 2020-10-04 17:07 | P.OP ---
Date of Procedure: 10/04/20 Preoperative Diagnosis: Left ureteral stone Postoperative Diagnosis: Same Procedure(s) Performed: Cystoscopy, left retrograde pyelogram,ureteroscopy, holmium laser lithotripsy, stone basketing and stent placement Implants: 6-[place] by 24 cm stent Anesthesia: BRANDON Surgeon: Zuhair Loo Estimated Blood Loss (ml): 5 Pathology: other (left ureteral stone) Condition: stable Disposition: PACU Indications for Procedure: 85-year-old female with a history of a 4 mm left-sided proximal stone. She is been having intractable pain secondary to her stone. The option of left-sided ureteroscopy was discussed with her. Discussed with her the risk which includes but not limited to bleeding, infection, ureteral injury. I discussed with her that if the stone is impacted then we will proceed with stent placement followed by ureteroscopy in approximately 3-4 weeks. She understood all the risks and agree to proceed with left-sided ureteroscopy, holmium laser lithotripsy, stone basketing, and stent placement Operative Findings: Left proximal ureteral stone Description of Procedure: Patient was brought to the operating room, general anesthesia was induced. She was prepped and draped in sterile fashion a placement dorsal lithotomy position. Cystoscopy fitted with 21-[place] sheath was inserted per urethra. Cystoscopy was performed showed no abnormality within the bladder. Attention was then carried to the left ureteral orifice which was intubated with a 6-[place] open- ended catheter. Of note fluoroscopy was obtained which showed contrast in the kidney from her previous CT scan has not drained. At this time, retrograde pyelogram was performed which showed contrast going up the ureter without any filling defect except at the proximal ureter a filling defect was appreciated where the stone was. At this time a sensor wire was advanced through the catheter and the catheter was advanced to to the renal pelvis, renal aspirate was obtained from the renal pelvis and it was hematuric. At this time a sensor wire was advanced through the catheter and the catheter was removed with the wire in place. Next an [id number] access sheath was passed over the wire under fluoroscopy. Next the ureteroscope was advanced through the access sheath and renoscopy was performed showed the stone had migrated into the renal pelvis. Using the holmium laser the stone was fragmented into small fragments. Sizable fragments were removed using a stone basket. Repeat renoscopy showed no sizable fragments or injury to the kidney. Pullback ureteroscopy was performed showed no injury to the ureter or any ureteral stones. Next a sensor wire was advanced through the ureteroscope and the ureteroscope was withdrawn with the wire in place. Next a ureteral stent was passed over the wire. The proximal curl was noted on fluoroscopy and distal curl was visualized using the cystoscope. The bladder was emptied at the end of case. Patient was awakened from anesthesia and taken recovery in stable condition
[2020-10-04 17:19] LABS: Glucose,Whole Blood 150 mg/dL (75-99)
--- NOTE | 2020-10-04 18:06 | FL ---
Fluoroscopy HISTORY: Stent placement, kidney stone removal 8 seconds fluoroscopy time supplied to the referring clinician. 1 intraoperative C-arm images docume nt the procedure. See dictated report from urology.
[2020-10-04 20:15] LABS: Glucose,Whole Blood 191 mg/dL (75-99)
[2020-10-04] MEDS ORDERED: PRAVASTATIN SODIUM 80 MG TAB PO SCH (21:00)
[2020-10-04] MEDS: INSULIN ASPART (NovoLOG) 100 UNIT/ML VIAL SQ SCH (21:10)
[2020-10-05 05:54] VITALS: BP 135/69; PULSE 74; RESP 16; TEMP 98.7
[2020-10-05 07:16] LABS: Glucose,Whole Blood 189 mg/dL (75-99)
[2020-10-05] MEDS ORDERED: metFORMIN 850 MG TAB PO SCH (07:30)
[2020-10-05 07:44] LABS: Basophils % (A) 0 %; Eosinophils # (A) 0.1 k/uL (0-0.7); Eosinophils % (A) 1 %; HCT 40.4 % (34.0-46.0); HGB 13.1 gm/dL (11.4-16.0); Lymphocytes # (A) 1.7 k/uL (1.0-4.8); Lymphocytes % (A) 18 %; MCH 28.7 pg (25.0-35.0); MCHC 32.5 g/dL (31.0-37.0); MCV 88.5 fL (80.0-100.0); Mean Platelet Volume 8.2; Monocytes % (A) 11 %; Neutrophils # (A) 6.3 k/uL (1.3-7.7); Neutrophils % (A) 68 %; RBC 4.57 m/uL (3.80-5.40); RDW 13.6 % (11.5-15.5); WBC 9.2 k/uL (3.8-10.6)
[2020-10-05 08:25] LABS: Platelet Count 92 k/uL (150-450)
[2020-10-05] MEDS: INSULIN ASPART (NovoLOG) 100 UNIT/ML VIAL SQ SCH (08:28)
[2020-10-05] MEDS ORDERED: hydroCHLOROthiazide 12.5 MG CAP PO SCH (09:00)
[2020-10-05] MEDS ORDERED: methIMAzole 5 MG TAB PO SCH (09:00)
[2020-10-05] MEDS ORDERED: LOSARTAN 50 MG TAB PO SCH (09:00)
[2020-10-05] MEDS ORDERED: ASPIRIN 81 MG PO SCH (09:00)
[2020-10-05] MEDS ORDERED: PARoxetine 20 MG TAB PO SCH (09:00)
[2020-10-05] MEDS ORDERED: LORazepam 0.5 MG TAB PO SCH (09:00)
[2020-10-05] MEDS ORDERED: amLODIPine 10 MG TAB PO SCH (09:00)
[2020-10-05] MEDS ORDERED: CHOLECALCIFEROL 1,000 UNIT TAB PO SCH (09:00)
[2020-10-05 11:13] LABS: Glucose,Whole Blood 141 mg/dL (75-99)
[2020-10-05 11:16] LABS: African American GFR (CKD) 68.1 (60.0-200.0); Anion Gap 8.9 mmol/L (4.00-12.00); BUN/Creat Ratio 12.22 Ratio (12.00-20.00); Calcium 9.2 mg/dL (8.7-10.3); Carbon Dioxide 26.1 mmol/L (21.6-31.8); Non-African American GFR(CKD) 58.7 (60.0-200.0); Potassium 3.9 mmol/L (3.5-5.5)
--- NOTE | 2020-10-05 11:21 | P.DS ---
Providers Date of admission: 10/04/20 12:47 Attending physician: Zuhair Loo MD Primary care physician: Mehrdad Waldron [facility] Course: Ms Rao is an 85 yo female with 4mm left proximal ureteral stone, She underwent left sided ureteroscopy with holmium laser lithotripsy on 10/04, please see op note dated 10/04 for surgery details She was admitted to the floor post operatively for oxygen requirment and pain control. She was discharged home On POD #1. At time of discharge she was tolerating a diet, ambulating and pain was well controlled. She will f/u in one week for stent removal Patient Condition at Discharge: Stable Plan - Discharge Summary Discharge Rx Participant: No New Discharge Prescriptions: New Cephalexin [Keflex] 500 mg PO Q8HR #15 cap Ketorolac [Toradol] 10 mg PO Q6HR PRN #15 tab PRN Reason: Pain No Action metFORMIN HCL [Glucophage] 850 mg PO BID-W/MEALS PARoxetine [Paxil] 20 mg PO DAILY Cholecalciferol [Vitamin D3 (25 Mcg = 1000 Iu)] 2,000 unit PO DAILY Aspirin 81 mg PO DAILY Losartan/Hydrochlorothiazide [Hyzaar 100-12.5 Tablet] 1 tab PO DAILY Pravastatin Sodium 80 mg PO HS amLODIPine [Norvasc] 10 mg PO DAILY LORazepam [Ativan] 0.5 mg PO DAILY Methimazole [Tapazole] 2.5 mg PO DAILY Discharge Medication List PARoxetine [Paxil] 20 mg PO DAILY 08/10/14 [History] metFORMIN HCL [Glucophage] 850 mg PO BID-W/MEALS 08/10/14 [History] Aspirin 81 mg PO DAILY 12/07/14 [History] Cholecalciferol [Vitamin D3 (25 Mcg = 1000 Iu)] 2,000 unit PO DAILY 12/07/14 [History] Losartan/Hydrochlorothiazide [Hyzaar 100-12.5 Tablet] 1 tab PO DAILY 08/24/16 [History] Pravastatin Sodium 80 mg PO HS 05/01/17 [History] amLODIPine [Norvasc] 10 mg PO DAILY 08/08/17 [History] LORazepam [Ativan] 0.5 mg PO DAILY 08/27/17 [History] Methimazole [Tapazole] 2.5 mg PO DAILY 09/17/17 [History] Cephalexin [Keflex] 500 mg PO Q8HR #15 cap 10/04/20 [Rx] Ketorolac [Toradol] 10 mg PO Q6HR PRN #15 tab 10/04/20 [Rx] Follow up Appointment(s)/Referral(s): Zuhair Loo MD [STAFF PHYSICIAN] - 10/16/20 9:40 am Mehrdad Waldron MD [Primary Care Provider] - 10/10/20 11:00 am Activity/Diet/Wound Care/Special Instructions: You may see some blood in the urine Drink plenty of fluid Follow up in 2 weeks for stent removal Discharge Disposition: HOME SELF-CARE
[2020-10-05 15:00] LABS: Hemoglobin A1C 7.8 % (4.0-6.0)
--- NOTE | 2020-10-06 22:04 | P.GSHP ---
History of Present Illness H&P Date: 10/04/20 Chief Complaint: left flank pain Ms donovan is an 85-year-old female presented to the ED with left-sided flank pain. She had a CT scan done which showed a 4 mm left-sided proximal stone. Patient has been having intractable pain secondary to stone, no improvement of pain despite IV pain medications. Of note patient has history of recurrent kidney stones, and history of sepsis secondary to her kidney stones. On evaluation she still having left flank pain with nausea. Denies any fevers, chills, dysuria, gross hematuria. - Constitutional Constitutional: Denies chills, Denies fever - Cardiovascular Cardiovascular: Denies chest pain, Denies shortness of breath - Respiratory Respiratory: Denies cough, Denies 7 - Gastrointestinal Gastrointestinal: Reports nausea, Reports vomiting, Denies abdominal pain, Christopher es diarrhea - Genitourinary (Female) Genitourinary: Reports flank pain, Reports kidney stones, Denies dysuria, Denies hematuria - Neurological Neurological: Denies numbness, Denies weakness Past Medical History Past Medical History: Cancer, Diabetes Mellitus, Hyperlipidemia, Hypertension, Osteoarthritis (OA), Thyroid Disorder Additional Past Medical History / Comment(s): hx of melanoma, stable mass on brain they are currently watching patient is aymptomatic. Previous thyroid nodules. History of Any Multi-Drug Resistant Organisms: None Reported Past Surgical History: Hysterectomy Past Anesthesia/Blood Transfusion Reactions: No Reported Reaction Past Psychological History: Depression Smoking Status: Never smoker Past Alcohol Use History: None Reported Past Drug Use History: None Reported - Past Family History Father Family Medical History: Myocardial Infarction ([place]) Medications and Allergies Home Medications Medication Instructions Recorded Confirmed Type PARoxetine [Paxil] 20 mg PO DAILY 08/10/14 10/04/20 History metFORMIN HCL [Glucophage] 850 mg PO BID-W/MEALS 08/10/14 10/04/20 History Aspirin 81 mg PO DAILY 12/07/14 10/04/20 History Cholecalciferol [Vitamin D3 (25 2,000 unit PO DAILY 12/07/14 10/04/20 History Mcg = 1000 Iu)] Losartan/Hydrochlorothiazide 1 tab PO DAILY 08/24/16 10/04/20 History [Hyzaar 100-12.5 Tablet] Pravastatin Sodium 80 mg PO HS 05/01/17 10/04/20 History amLODIPine [Norvasc] 10 mg PO DAILY 08/08/17 10/04/20 History LORazepam [Ativan] 0.5 mg PO DAILY 08/27/17 10/04/20 History Methimazole [Tapazole] 2.5 mg PO DAILY 09/17/17 10/04/20 History Cephalexin [Keflex] 500 mg PO Q8HR #15 cap 10/04/20 Rx Ketorolac [Toradol] 10 mg PO Q6HR PRN #15 tab 10/04/20 Rx Allergies Allergy/AdvReac Type Severity Reaction Status Date / Time No Known Allergies Allergy Verified 10/04/20 12:08 Surgical - Exam Vital Signs Temp Pulse Resp BP Pulse Ox 98 F 82 18 161/82 96 10/04/20 09:04 10/04/20 09:04 10/04/20 09:04 10/04/20 09:04 10/04/20 09:04 - General well developed, well nourished, moderate distress, moderate pain - Eyes PERRL, normal ocular movement - ENT normal nares, normal mucosa - Respiratory normal expansion, normal respiratory effort - Psychiatric oriented to time, oriented to person, oriented to place Results - Labs 10/05/20 07:04 10/05/20 07:04 Assessment and Plan Assessment: 85-year-old female with a history of a 4 mm left-sided proximal stone. She is been having intractable pain secondary to her stone. The option of left-sided ureteroscopy was discussed with her. Discussed with her the risk which includes but not limited to bleeding, infection, ureteral injury. I discussed with her that if the stone is impacted then we will proceed with stent placement followed by ureteroscopy in approximately 3-4 weeks. She understood all the risks and agree to proceed with left-sided ureteroscopy, holmium laser lithotripsy, stone basketing, and stent placement Plan: -Keep NPO -OR for left-sided ureteroscopy, holmium laser lithotripsy, stone basketing, and stent placement
== END 2020-10-05 12:30 | disposition home or self-care (01) | DRG 661 ==
LOC: EC 09:01 → 6NMEDSUR 12:47
PROVIDERS: ADMIT Urology; ATTEND Urology
PROC: BT1F1ZZ Fluoroscopy of Left Kidney, Ureter and Bladder using Low Osmolar Contrast (ICD-10-PCS; principal; 2020-10-04 10:15)
PROC: 0T778DZ Dilation of Left Ureter with Intraluminal Device, Via Natural or Artificial Opening Endoscopic (ICD-10-PCS; principal; 2020-10-04 10:15)
PROC: 0TC78ZZ Extirpation of Matter from Left Ureter, Via Natural or Artificial Opening Endoscopic (ICD-10-PCS; principal; 2020-10-04 10:15)
DX: N13.2 Hydronephrosis with renal and ureteral calculous obstruction (principal); E04.2 Nontoxic multinodular goiter; E11.9 Type 2 diabetes mellitus without complications; E78.5 Hyperlipidemia, unspecified; I10 Essential (primary) hypertension; F32.9 Major depressive disorder, single episode, unspecified; M19.90 Unspecified osteoarthritis, unspecified site; Z79.82 Long term (current) use of aspirin; Z79.84 Long term (current) use of oral hypoglycemic drugs; Z79.899 Other long term (current) drug therapy; Z87.442 Personal history of urinary calculi; Z86.19 Personal history of other infectious and parasitic diseases; Z90.710 Acquired absence of both cervix and uterus; Z87.19 Personal history of other diseases of the digestive system; Z85.820 Personal history of malignant melanoma of skin; Z98.890 Other specified postprocedural states; Z82.49 Family history of ischemic heart disease and other diseases of the circulatory system
CPT/HCPCS: 36415; 52310; 74177; 74420; 80048; 80053; 81001; 82365; 83036; 83690; 85025; 85610; 85730; 96361; 96365; 96375; 99285

== ENCOUNTER → 2020-10-17 | Outpatient (CLI) | payer MEDICARE | END | disposition home or self-care (01) | LOC: LABWHC1 16:03 | PROVIDERS: ATTEND Family Medicine | DX: Z20.828 Contact with and (suspected) exposure to other viral communicable diseases (principal) | CPT/HCPCS: U0003; C9803 ==

== ENCOUNTER → 2020-11-27 | Outpatient (CLI) | payer MEDICARE ==
[2020-11-27 20:32] LABS: T4, Free (Free Thyroxine) 1.1 ng/dL (0.80-1.80)
== END | disposition home or self-care (01) ==
LOC: LABWHC1 13:37
PROVIDERS: ATTEND Internal Medicine Endocrinology, Diabetes & Metabolism
DX: E05.90 Thyrotoxicosis, unspecified without thyrotoxic crisis or storm (principal); E04.2 Nontoxic multinodular goiter
CPT/HCPCS: 36415; 84439; 84443; 84480

== ENCOUNTER → 2020-11-30 | Outpatient (CLI) | payer MEDICARE ==
--- NOTE | 2020-11-30 14:19 | MR ---
EXAMINATION TYPE: MR brain wo/w con DATE OF EXAM: 11/30/2020 COMPARISON: MRI brain January 03, 2020 HISTORY: F/U to known brain tumor TECHNIQUE: Multiplanar, multisequence images of the brain and brainstem is performed without and with IV contras t, utilizing 7.5 mL intravenous Gadavist . FINDINGS: Diffusion weighted images demonstrate no evidence of a recent infarct or other diffusion ab normality. There is persistent moderate diffuse ventricular and sulcal prominence. There are scatter ed foci of T2 hyperintensity are seen throughout the white matter bilaterally. Approximately 15-20 sc attered lesions are redemonstrated. Midline structures redemonstrate normal morphology. The craniocervical junction remains within adriane l limits. Post contrast images demonstrate no new enhancing masses. Stable left frontal 1.1 cm T1 sl ightly hypointense and T2 slightly hyperintense rim enhancing lesion. The dural venous sinuses appear patent. The visualized sinuses are clear and the globes are intact. IMPRESSION: Moderate diffuse cerebral atrophy and mild to moderate chronic small vessel ischemic nation ge redemonstrated and stable. Stable 1.1 cm left frontal intraventricular lesion. No new hydrocephalu s or enhancing masses.
== END | disposition home or self-care (01) ==
LOC: RADMRIMAIN 09:15
PROVIDERS: ATTEND Neurological Surgery
DX: G31.9 Degenerative disease of nervous system, unspecified (principal); I67.82 Cerebral ischemia; G93.89 Other specified disorders of brain
CPT/HCPCS: 70553; A9585

== ENCOUNTER 2020-12-12 20:38 | Observation (INO) | payer MEDICARE ==
[2020-12-12] MEDS ORDERED: ONDANSETRON 4 MG/2 ML VIAL IVP STA (20:57)
[2020-12-12 21:30] LABS: Albumin 4.4 g/dL (3.5-5.0); Calcium 10.3 mg/dL (8.4-10.2); Magnesium 1.8 mg/dL (1.6-2.3); Potassium 3.7 mmol/L (3.5-5.1); Total Bilirubin 0.7 mg/dL (0.2-1.3); Total Protein 7.3 g/dL (6.3-8.2)
[2020-12-12 21:39] LABS: Basophils # (A) 0.1 k/uL (0-0.2); Basophils % (A) 1 %; Eosinophils # (A) 0.1 k/uL (0-0.7); Eosinophils % (A) 1 %; HCT 42.1 % (34.0-46.0); HGB 14.6 gm/dL (11.4-16.0); Lymphocytes # (A) 2.2 k/uL (1.0-4.8); Lymphocytes % (A) 24 %; MCH 29.8 pg (25.0-35.0); MCHC 34.6 g/dL (31.0-37.0); MCV 86.2 fL (80.0-100.0); Mean Platelet Volume 7.9; Monocytes % (A) 10 %; Neutrophils # (A) 5.6 k/uL (1.3-7.7); Neutrophils % (A) 62 %; RBC 4.89 m/uL (3.80-5.40); RDW 13.4 % (11.5-15.5); WBC 9.1 k/uL (3.8-10.6)
[2020-12-12 21:40] LABS: INR 1.1 (<1.2); Partial Thromboplastin Time 22.8 sec (22.0-30.0); Prothrombin Time 11.1 sec (9.0-12.0)
[2020-12-12 21:57] LABS: Platelet Count 95 k/uL (150-450)
--- NOTE | 2020-12-12 22:07 | CT ---
EXAMINATION TYPE: CT brain wo con DATE OF EXAM: 12/12/2020 COMPARISON: 08/08/2017 HISTORY: Headache. CT DLP: 1126.4 mGycm Automated exposure control for dose reduction was used. There is cerebral cortical atrophy. There is no mass effect nor midline shift. There is no evidence o f intracranial hemorrhage. The calvarium is intact. There is 9 mm rounded soft tissue density mass wi thin the frontal horn of the left lateral ventricle. IMPRESSION: Cerebral atrophy. No acute intracranial abnormality. 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
[2020-12-12] MEDS ORDERED: ACETAMINOPHEN TAB 325 MG TAB PO STA (22:13)
--- NOTE | 2020-12-12 22:14 | CT ---
EXAMINATION TYPE: CT abdomen pelvis w con DATE OF EXAM: 12/12/2020 COMPARISON: 10/04/2020 HISTORY: Abdominal pain and vomiting. CT DLP: 1907.6 mGycm Automated exposure control for dose reduction was used. CONTRAST: Performed with IV Contrast, patient injected with 100ml mL of Isovue 300. There is minimal subsegmental atelectasis at the lung bases. Heart is enlarged. There is no pericardi al effusion. There is no pleural effusion. There is small hiatal hernia. Liver spleen pancreas stomach appear intact. There is a large calcified gallstone. The bile ducts are not dilated. There is no adrenal mass. Kidneys show satisfactory contrast opacification. There is no hydronephrosi s. Delayed images show normal renal excretion. There is no retroperitoneal adenopathy. Abdominal aort a is atheromatous. There is slight lobulation lower pole of the left kidney. Bladder distends smoothly. There is no inguinal hernia. There is hysterectomy. There are phleboliths in the pelvis. There is no mesenteric edema. There is no ascites or free air. There is no sign of a bowel obstruction. There is a mild degenerative first-deg ree L4-5 spondylolisthesis. There is no compression fracture. There is mild multilevel facet arthropa thy. The bony pelvis is intact. Hip joints are intact. The sacrum is intact. There is hypertrophic bi lateral acetabular spur formation. There is mild spurring on the femoral heads. There is a slight lum bar levoscoliosis. IMPRESSION: Cardiomegaly. Cholelithiasis. No acute abnormality of the abdomen pelvis. There is clearing of the left renal obstruction compared to old exam.
[2020-12-12 22:28] LABS: Appearance,Urine Clear (Clear); Bacteria,Urine Rare /hpf; Bilirubin,Urine Negative (Negative); Blood,Urine Negative (Negative); Color,Urine Light Yellow; Glucose,Urine (UA) Negative (Negative); Hyaline Casts,Urine 1 /lpf (0-2); Ketones,Urine 1+ (Negative); Leukocyte Esterase,Urine Negative (Negative); Nitrite,Urine Negative (Negative); PH, Urine 7.5 (5.0-8.0); Protein,Urine 1+ (Negative); RBC,Urine 1 /hpf (0-5); Urobilinogen,Urine <2.0 mg/dL (<2.0); WBC,Urine 1 /hpf (0-5)
[2020-12-12] MEDS ORDERED: PANTOPRAZOLE 40 MG/10 ML VIAL IVP STA (22:47)
[2020-12-12] MEDS ORDERED: SODIUM CHLORIDE 0.9% 500 ML 500 ML IV ONE (22:47)
[2020-12-12] MEDS ORDERED: NALOXONE 0.4 MG/ML 1 ML VIAL IV PRN (22:55)
--- NOTE | 2020-12-12 22:57 | ED ---
General Adult HPI - General Chief complaint: Nausea/Vomiting/Diarrhea Stated complaint: NVD Time Seen by Provider: 12/12/20 20:46 Source: patient, family Mode of arrival: ambulatory Limitations: no limitations - History of Present Illness Initial comments: 85-year-old female past history of memory problems and developing dementia presenting to the emergency department today for chief complaint of abdominal pain nausea vomiting and headache. Daughter who is bedside states patient is at her baseline she denies any altered mental status. She denies patient having fevers but states the past 2 day she's had nausea vomiting and is not sure if this is related to beginning the medication Aricept. Patient goes between stating she has a headache to think she has upper abdominal pain. Patient denies any chest pain shortness of breath she states she does feel nauseated and actually vomited in the waiting room. Patient denies any bloody vomit dark st ools or bloody stools she denies any diarrhea, constipation. Patient denies any cough congestion and upper respiratory symptoms neck stiffness she has a falls head trauma or known anticoagulation use. Patient denies any speech changes visual changes vision loss or diplopia localized weakness weakness or sensation deficits of the upper extremities or lower. Denies dizziness. She states she generally feels unwell as well as weak. She states she has not been able to eat or drink much Remaining review of systems negative upon arrival patient is very pleasant she is ambulatory no acute distress - Related Data Home Medications Medication Instructions Recorded Confirmed PARoxetine [Paxil] 20 mg PO DAILY 08/10/14 12/12/20 metFORMIN HCL [Glucophage] 850 mg PO BID-W/MEALS 08/10/14 12/12/20 Aspirin 81 mg PO DAILY 12/07/14 12/12/20 Losartan/Hydrochlorothiazide 1 tab PO DAILY 08/24/16 12/12/20 [Hyzaar 100-12.5 Tablet] Pravastatin Sodium 80 mg PO HS 05/01/17 12/12/20 amLODIPine [Norvasc] 10 mg PO DAILY 08/08/17 12/12/20 LORazepam [Ativan] 0.5 mg PO DAILY PRN 08/27/17 12/12/20 Methimazole [Tapazole] 5 mg PO DAILY 09/17/17 12/12/20 Donepezil HCl [Aricept] 10 mg PO HS 12/12/20 12/12/20 Ergocalciferol (Vitamin D2) 50 mcg PO BID 12/12/20 12/12/20 [Vitamin D2 (2000 Iu)] Allergies Allergy/AdvReac Type Severity Reaction Status Date / Time No Known Allergies Allergy Verified 12/12/20 21:31 Review of Systems ROS Statement: Those systems with pertinent positive or pertinent negative responses have been documented in the HPI. ROS Other: All systems not noted in ROS Statement are negative. 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 Previous thyroid nodules. History of Any Multi-Drug Resistant Organisms: None Reported Past Surgical History: Hysterectomy Past Anesthesia/Blood Transfusion Reactions: No Reported Reaction Past Psychological History: Depression Smoking Status: Never smoker Past Alcohol Use History: None Reported Past Drug Use History: None Reported - Past Family History Father Family Medical History: Myocardial Infarction ([place]) General Exam - General Exam Comments Initial Comments: General: The patient is awake and alert, in no distress Eye: Pupils are equal, round and reactive to light, extra-ocular movements are intact. No nystagmus. There is normal conjunctiva bilaterally. No signs of icterus. Ears, nose, mouth and throat: There are moist mucous membranes and no oral lesions. Neck: The neck is supple, there is no tenderness or JVD. Cardiovascular: There is a regular rate and rhythm. No murmur, rub or gallop is appreciated. Respiratory: Lungs are clear to auscultation, respirations are non-labored, breath sounds are equal. No wheezes, stridor, rales, or rhonchi. Gastrointestinal: Soft, non-distended, epigastric tenderness palpation of the abdomen without masses or organomegaly noted. There is no rebound or guarding present. Musculoskeletal: Normal ROM, no tenderness. Strength 5/5 of the UE and LE equal b/l. Sensation intact of the UE and LE equal b/l. No pronator drift Radial pulses equal bilaterally 2+. Neurological: A&O x 2 (self, place, not time). CN II-XII intact, There are no obvious motor or sensory deficits. Coordination appears grossly intact. Speech is normal. Skin: Skin is warm and dry and no rashes or lesions are noted. No LE edema Psychiatric: Cooperative, appropriate mood & affect, normal judgment. Limitations: no limitations Course Vital Signs 12/12/20 12/12/20 12/12/20 20:43 21:21 22:37 Temperature 97.4 F L 98.8 F Pulse Rate 86 75 74 Respiratory 18 18 16 Rate Blood Pressure 183/75 149/73 150/65 O2 Sat by Pulse 95 97 99 Oximetry EKG Findings - EKG Comments: EKG Findings:: Ventricular rate 73 bpm, ID interval 176 ms QRS duration 388/427 ms. There is some artifact noted on the EKG no ST elevation or depression is apparent EKG person reviewed and as well as reviewed by attending provider Medical Decision Making - Medical Decision Making 85-year-old presenting for epigastric pain nausea vomiting briefly starting Aricept. Patient's lipase around 550. She is reproduced epigastric pain as well as associated nausea vomiting patient states he overall feels weak and has not drank very much the past 2 days. At this time I feel patient has possible developing acute pancreatitis although computed tomography scan did not report any acute intra-abdominal process at this time. Patient will be hydrated monitored and have repeat lipase in the morning Dr. Waldron is agreeable to this care plan and would like a routine ultrasound ordered. No additional recommenda tions. Protonix given and GI will be on consultation. I did discuss the case reviewed by EKG by attending provider Dr. Scott - Lab Data Result diagrams: 12/12/20 21:03 12/12/20 21:03 Lab Results 12/12/20 12/12/20 12/12/20 Range/Units 21:03 21:03 21:03 WBC 9.1 (3.8-10.6) k/uL RBC 4.89 (3.80-5.40) m/uL Hgb 14.6 (11.4-16.0) gm/dL Hct 42.1 (34.0-46.0) % MCV 86.2 (80.0-100.0) fL MCH 29.8 (25.0-35.0) pg MCHC 34.6 (31.0-37.0) g/dL RDW 13.4 (11.5-15.5) % Plt Count 95 L (150-450) k/uL MPV 7.9 Neutrophils % 62 % Lymphocytes % 24 % Monocytes % 10 % Eosinophils % 1 % Basophils % 1 % Neutrophils # 5.6 (1.3-7.7) k/uL Lymphocytes # 2.2 (1.0-4.8) k/uL Monocytes # 1.0 (0-1.0) k/uL Eosinophils # 0.1 (0-0.7) k/uL Basophils # 0.1 (0-0.2) k/uL PT 11.1 (9.0-12.0) sec INR 1.1 (<1.2) APTT 22.8 (22.0-30.0) sec Sodium (137-145) mmol/L Potassium (3.5-5.1) mmol/L Chloride (98-107) mmol/L Carbon Dioxide (22-30) mmol/L Anion Gap mmol/L BUN (7-17) mg/dL Creatinine (0.52-1.04) mg/dL Est GFR (CKD-EPI)AfAm (>60 ml/min/1.73 sqM) Est GFR (CKD-EPI)NonAf (>60 ml/min/1.73 sqM) Glucose (74-99) mg/dL Plasma Lactic Acid Simon (0.7-2.0) mmol/L Calcium (8.4-10.2) mg/dL Magnesium (1.6-2.3) mg/dL Total Bilirubin (0.2-1.3) mg/dL AST (14-36) U/L ALT (4-34) U/L Alkaline Phosphatase (38-126) U/L Troponin I (0.000-0.034) ng/mL Total Protein (6.3-8.2) g/dL Albumin (3.5-5.0) g/dL Amylase (30-110) U/L Lipase (23-300) U/L Urine Color Light Yellow Urine Appearance Clear (Clear) Urine pH 7.5 (5.0-8.0) Ur Specific [place] 1.030 (1.001-1.035) Urine Protein 1+ H (Negative) Urine Glucose (UA) Negative (Negative) Urine Ketones 1+ H (Negative) Urine Blood Negative (Negative) Urine Nitrite Negative (Negative) Urine Bilirubin Negative (Negative) Urine Urobilinogen <2.0 (<2.0) mg/dL Ur Leukocyte Esterase Negative (Negative) Urine RBC 1 (0-5) /hpf Urine WBC 1 (0-5) /hpf Urine Bacteria Rare H (None) /hpf Hyaline Casts 1 (0-2) /lpf Coronavirus (PCR) (Not Detectd) 12/12/20 12/12/20 12/12/20 Range/Units 21:03 21:03 21:03 WBC (3.8-10.6) k/uL RBC (3.80-5.40) m/uL Hgb (11.4-16.0) gm/dL Hct (34.0-46.0) % MCV (80.0-100.0) fL MCH (25.0-35.0) pg MCHC (31.0-37.0) g/dL RDW (11.5-15.5) % Plt Count (150-450) k/uL MPV Neutrophils % % Lymphocytes % % Monocytes % % Eosinophils % % Basophils % % Neutrophils # (1.3-7.7) k/uL Lymphocytes # (1.0-4.8) k/uL Monocytes # (0-1.0) k/uL Eosinophils # (0-0.7) k/uL Basophils # (0-0.2) k/uL PT (9.0-12.0) sec INR (<1.2) APTT (22.0-30.0) sec Sodium 138 (137-145) mmol/L Potassium 3.7 (3.5-5.1) mmol/L Chloride 102 (98-107) mmol/L Carbon Dioxide 25 (22-30) mmol/L Anion Gap 11 mmol/L BUN 18 H (7-17) mg/dL Creatinine 0.72 (0.52-1.04) mg/dL Est GFR (CKD-EPI)AfAm 90 (>60 ml/min/1.73 sqM) Est GFR (CKD-EPI)NonAf 78 (>60 ml/min/1.73 sqM) Glucose 180 H (74-99) mg/dL Plasma Lactic Acid Simon 1.7 (0.7-2.0) mmol/L Calcium 10.3 H (8.4-10.2) mg/dL Magnesium 1.8 (1.6-2.3) mg/dL Total Bilirubin 0.7 (0.2-1.3) mg/dL AST 21 (14-36) U/L ALT 17 (4-34) U/L Alkaline Phosphatase 100 (38-126) U/L Troponin I <0.012 (0.000-0.034) ng/mL Total Protein 7.3 (6.3-8.2) g/dL Albumin 4.4 (3.5-5.0) g/dL Amylase 74 (30-110) U/L Lipase 549 H (23-300) U/L Urine Color Urine Appearance (Clear) Urine pH (5.0-8.0) Ur Specific [place] (1.001-1.035) Urine Protein (Negative) Urine Glucose (UA) (Negative) Urine Ketones (Negative) Urine Blood (Negative) Urine Nitrite (Negative) Urine Bilirubin (Negative) Urine Urobilinogen (<2.0) mg/dL Ur Leukocyte Esterase (Negative) Urine RBC (0-5) /hpf Urine WBC (0-5) /hpf Urine Bacteria (None) /hpf Hyaline Casts (0-2) /lpf Coronavirus (PCR) (Not Detectd) 12/12/20 Range/Units 21:11 WBC (3.8-10.6) k/uL RBC (3.80-5.40) m/uL Hgb (11.4-16.0) gm/dL Hct (34.0-46.0) % MCV (80.0-100.0) fL MCH (25.0-35.0) pg MCHC (31.0-37.0) g/dL RDW (11.5-15.5) % Plt Count (150-450) k/uL MPV Neutrophils % % Lymphocytes % % Monocytes % % Eosinophils % % Basophils % % Neutrophils # (1.3-7.7) k/uL Lymphocytes # (1.0-4.8) k/uL Monocytes # (0-1.0) k/uL Eosinophils # (0-0.7) k/uL Basophils # (0-0.2) k/uL PT (9.0-12.0) sec INR (<1.2) APTT (22.0-30.0) sec Sodium (137-145) mmol/L Potassium (3.5-5.1) mmol/L Chloride (98-107) mmol/L Carbon Dioxide (22-30) mmol/L Anion Gap mmol/L BUN (7-17) mg/dL Creatinine (0.52-1.04) mg/dL Est GFR (CKD-EPI)AfAm (>60 ml/min/1.73 sqM) Est GFR (CKD-EPI)NonAf (>60 ml/min/1.73 sqM) Glucose (74-99) mg/dL Plasma Lactic Acid Simon (0.7-2.0) mmol/L Calcium (8.4-10.2) mg/dL Magnesium (1.6-2.3) mg/dL Total Bilirubin (0.2-1.3) mg/dL AST (14-36) U/L ALT (4-34) U/L Alkaline Phosphatase (38-126) U/L Troponin I (0.000-0.034) ng/mL Total Protein (6.3-8.2) g/dL Albumin (3.5-5.0) g/dL Amylase (30-110) U/L Lipase (23-300) U/L Urine Color Urine Appearance (Clear) Urine pH (5.0-8.0) Ur Specific [place] (1.001-1.035) Urine Protein (Negative) Urine Glucose (UA) (Negative) Urine Ketones (Negative) Urine Blood (Negative) Urine Nitrite (Negative) Urine Bilirubin (Negative) Urine Urobilinogen (<2.0) mg/dL Ur Leukocyte Esterase (Negative) Urine RBC (0-5) /hpf Urine WBC (0-5) /hpf Urine Bacteria (None) /hpf Hyaline Casts (0-2) /lpf Coronavirus (PCR) Not Detected (Not Detectd) Disposition Clinical Impression: Nausea & vomiting, Elevated lipase, Epigastric pain Disposition: ADMITTED IP TO THIS [facility] Condition: Stable Is patient prescribed a controlled substance at d/c from ED?: No Time of Disposition: 22:57 Decision to Admit Reason: Admit from EC Decision Date: 12/12/20 Decision Time: 22:57
[2020-12-13] MEDS: SODIUM CHLORIDE 0.9% 1,000 ML IV SCH ×3 (02:16→19:48)
[2020-12-13] MEDS ORDERED: LORazepam 0.5 MG TAB PO PRN (08:40)
[2020-12-13] MEDS: amLODIPine 10 MG TAB PO SCH (09:13)
[2020-12-13] MEDS: hydroCHLOROthiazide 12.5 MG CAP PO SCH (09:13)
[2020-12-13] MEDS: LOSARTAN 50 MG TAB PO SCH (09:13)
[2020-12-13] MEDS: methIMAzole 5 MG TAB PO SCH (09:13)
[2020-12-13] MEDS: PARoxetine 20 MG TAB PO SCH (09:13)
[2020-12-13] MEDS: PANTOPRAZOLE 40 MG/10 ML VIAL IVP SCH (09:13)
[2020-12-13] MEDS: NON FORMULARY DRUG (Ergocalciferol (Vitamin D2) [Vitamin D2 (2000 Iu)] 50 MCG Tablet) PO SCH ×2 (09:18→19:48)
[2020-12-13] MEDS ORDERED: PROCHLORPERAZINE 10 MG TAB PO PRN (09:37)
--- NOTE | 2020-12-13 14:25 | US ---
EXAMINATION TYPE: US abdomen limited DATE OF EXAM: 12/13/2020 COMPARISON: CT dated 12/12/2020 CLINICAL HISTORY: epigastric pain. gallstone seen on CT. EXAM MEASUREMENTS: Liver Length: 16.7 cm slightly under represented Gallbladder Wall: 0.3 cm CBD: 0.5 cm Right Kidney: 12.5 x 6.2 x 3.9 cm Pancreas: hyperechoic and pancreatic duct measures 0.2cm Liver: Heterogeneous echotexture with area of low echo likely due to hepatic steatosis with focal sp aring near gallbladder = 2.4 x 1.2 x 1.1cm. Gallbladder: couple of mobile shadowing stones with larger in upper fundus and as seen on CT Evidence for sonographic Saravia's sign: no CBD: wnl Right Kidney: No hydronephrosis or masses seen IMPRESSION: Hepatic steatosis is favored. Cholelithiasis.
--- NOTE | 2020-12-13 17:16 | P.HPIM ---
History of Present Illness H&P Date: 12/13/20 Chief Complaint: Abdominal pain This is a history and physical on an 85-year-old white female who has had memory problems but has been complaining of new onset abdominal pain. I recently saw her in the office and started on Aricept for cognitive issues and dementia. The patient is a poor historian. There is no ethanol use. No fever no chills are stated. There is no significant diarrhea or constipation stated. Valuation in the emergency room showed elevated lipase with questionable early onset pancreatitis. 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 Previous thyroid nodules. History of Any Multi-Drug Resistant Organisms: None Reported Past Surgical History: Hysterectomy Past Anesthesia/Blood Transfusion Reactions: No Reported Reaction Past Psychological History: Depression Smoking Status: Never smoker Past Alcohol Use History: None Reported Past Drug Use History: None Reported - Past Family History Father Family Medical History: Myocardial Infarction ([place]) Medications and Allergies Home Medications Medication Instructions Recorded Confirmed Type PARoxetine [Paxil] 20 mg PO DAILY 08/10/14 12/12/20 History metFORMIN HCL [Glucophage] 850 mg PO BID-W/MEALS 08/10/14 12/12/20 History Aspirin 81 mg PO DAILY 12/07/14 12/12/20 History Losartan/Hydrochlorothiazide 1 tab PO DAILY 08/24/16 12/12/20 History [Hyzaar 100-12.5 Tablet] Pravastatin Sodium 80 mg PO HS 05/01/17 12/12/20 History amLODIPine [Norvasc] 10 mg PO DAILY 08/08/17 12/12/20 History LORazepam [Ativan] 0.5 mg PO DAILY PRN 08/27/17 12/12/20 History Methimazole [Tapazole] 5 mg PO DAILY 09/17/17 12/12/20 History Donepezil HCl [Aricept] 10 mg PO HS 12/12/20 12/12/20 History Ergocalciferol (Vitamin D2) 50 mcg PO BID 12/12/20 12/12/20 History [Vitamin D2 (2000 Iu)] Allergies Allergy/AdvReac Type Severity Reaction Status Date / Time No Known Allergies Allergy Verified 12/12/20 21:31 Physical Exam Vitals: Vital Signs Temp Pulse Pulse Resp BP BP Pulse Ox 12/13/20 13:55 97.8 F 61 19 191/65 94 L 12/13/20 08:00 59 L 18 12/13/20 07:49 97.7 F 59 L 18 146/72 93 L 12/12/20 23:38 97.9 F 96 17 165/74 97 12/12/20 22:37 98.8 F 74 16 150/65 99 12/12/20 21:21 75 18 149/73 97 12/12/20 20:43 97.4 F L 86 18 183/75 95 Intake and Output 12/13/20 12/13/20 12/13/20 06:59 14:59 22:59 Other: # Voids 1 Weight 81.647 kg Results CBC & Chem 7: 12/12/20 21:03 12/12/20 21:03 Labs: Abnormal Lab Results - Last 24 Hours (Table) 12/12/20 12/12/20 12/12/20 Range/Units 21:03 21:03 21:03 Plt Count 95 L (150-450) k/uL BUN 18 H (7-17) mg/dL Glucose 180 H (74-99) mg/dL Calcium 10.3 H (8.4-10.2) mg/dL Lipase 549 H (23-300) U/L Urine Protein 1+ H (Negative) Urine Ketones 1+ H (Negative) Urine Bacteria Rare H (None) /hpf 12/13/20 Range/Units 04:19 Plt Count (150-450) k/uL BUN (7-17) mg/dL Glucose (74-99) mg/dL Calcium (8.4-10.2) mg/dL Lipase 99 H (23-300) U/L Urine Protein (Negative) Urine Ketones (Negative) Urine Bacteria (None) /hpf Thrombosis Risk Factor Assmnt - Choose All That Apply Any of the Below Risk Factors Present?: Yes Each Factor Represents 1 point: Obesity (BMI >25) Other Risk Factors: Yes Each Risk Factor Represents 3 Points: Age 75 years or older Other congenital or acquired thrombophilia - If yes, enter type in comment: No Thrombosis Risk Factor Assessment Total Risk Factor Score: 4 Thrombosis Risk Factor Assessment Level: Moderate Risk Assessment and Plan (1) Elevated lipase Current Visit: Yes Status: Acute Code(s): R74.8 - ABNORMAL LEVELS OF OTHER SERUM ENZYMES SNOMED Code(s): 605077314 (2) Nausea & vomiting Current Visit: Yes Status: Acute Code(s): R11.2 - NAUSEA WITH VOMITING, UNSPECIFIED SNOMED Code(s): 82677232 (3) Diabetes Current Visit: No Status: Acute Code(s): E11.9 - TYPE 2 DIABETES MELLITUS WITHOUT COMPLICATIONS SNOMED Code(s): 21522637 Plan: Question early onset of pancreatitis. Dementia-recently started Aricept. Check CBC, CMP with amylase and lipase in the a.m. Appreciate GI input. Results were reviewed. CT scan does not show any type of ductal Dilation pancreatic inflammation Time with Patient: Greater than 30
[2020-12-13] MEDS: metFORMIN 850 MG TAB PO SCH (17:52)
[2020-12-13 19:53] VITALS: RESP 16
[2020-12-13 20:00] LABS: Glucose,Whole Blood 191 mg/dL (75-99)
[2020-12-13 20:18] LABS: Glucose,Whole Blood 176 mg/dL (75-99)
[2020-12-13] MEDS ORDERED: PRAVASTATIN SODIUM 80 MG TAB PO SCH (21:00)
[2020-12-13] MEDS ORDERED: DONEPEZIL 10 MG TAB PO SCH (21:00)
--- NOTE | 2020-12-13 23:46 | P.CONS ---
History of Present Illness - Reason for Consult Consult date: 12/13/20 Nausea and vomiting, abdominal pain Requesting physician: Mehrdad Waldron - Chief Complaint Nausea and vomiting, headache - History of Present Illness 85-year-old female with a medical history significant for diabetes mellitus, hypertension, hyperlipidemia and dementia who presented to the hospital with a constellation of symptoms including nausea, vomiting and headache. The patient had 1 day of nausea and vomiting with 2 episodes of vomiting. She denied any coffee-ground emesis or hematemesis. She denies any change in bowel habits, constipation or diarrhea. No further nausea or vomiting today. She did report some vague epigastric and periumbilical discomfort in association with her symptoms. The patient denies any history of NSAID use, or peptic ulcer disease. She reported a headache in association with her symptoms. Laboratory evaluation on presentation significant for WBC 9.1, hemoglobin 14.6, platelet count 95,000 with a total bilirubin 0.7, alkaline phosphatase 100, AST 21 and ALT 17 with lipase of 949. The patient had computed tomography scan of the abdomen in evaluation with findings of a large calcified gallstone with no CBD dilation or choledocholithiasis. Ultrasound of the abdomen showed cholelithiasis with no CBD dilation. Review of Systems REVIEW OF SYSTEMS: CONSTITUTIONAL: Denies any fevers, chills, weight change or fatigue. CARDIOVASCULAR: Denies any chest pain, palpitations high or low blood pressures RESPIRATORY: Denies any shortness of breath, hemoptysis or cough. GENITOURINARY: No dysuria or hematuria. MUSCULOSKELETAL: No weakness reported. SKIN: Denies any new rashes or lesions, jaundice or pallor. PSYCHIATRIC: Denies any depression or anxiety. NEUROLOGY: Denies any new focal deficits, she had reported headache on presentation which is improved, she also has a known history of dementia. EARS/NOSE/THROAT: No recent hearing change, congestion, nasal discharge or sore throat. EYES: No pain in eyes, discharge or change in vision. GASTROINTESTINAL: As per HPI. 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 Previous thyroid nodules. History of Any Multi-Drug Resistant Organisms: None Reported Past Surgical History: Hysterectomy Past Anesthesia/Blood Transfusion Reactions: No Reported Reaction Past Psychological History: Depression Smoking Status: Never smoker Past Alcohol Use History: None Reported Past Drug Use History: None Reported - Past Family History Father Family Medical History: Myocardial Infarction ([place]) Medications and Allergies Home Medications Medication Instructions Recorded Confirmed Type PARoxetine [Paxil] 20 mg PO DAILY 08/10/14 12/12/20 History metFORMIN HCL [Glucophage] 850 mg PO BID-W/MEALS 08/10/14 12/12/20 History Aspirin 81 mg PO DAILY 12/07/14 12/12/20 History Losartan/Hydrochlorothiazide 1 tab PO DAILY 08/24/16 12/12/20 History [Hyzaar 100-12.5 Tablet] Pravastatin Sodium 80 mg PO HS 05/01/17 12/12/20 History amLODIPine [Norvasc] 10 mg PO DAILY 08/08/17 12/12/20 History LORazepam [Ativan] 0.5 mg PO DAILY PRN 08/27/17 12/12/20 History Methimazole [Tapazole] 5 mg PO DAILY 09/17/17 12/12/20 History Donepezil HCl [Aricept] 10 mg PO HS 12/12/20 12/12/20 History Ergocalciferol (Vitamin D2) 50 mcg PO BID 12/12/20 12/12/20 History [Vitamin D2 (2000 Iu)] Allergies Allergy/AdvReac Type Severity Reaction Status Date / Time No Known Allergies Allergy Verified 12/12/20 21:31 Physical Exam Vitals: Vital Signs Temp Pulse Pulse Resp BP BP Pulse Ox 12/13/20 08:00 59 L 18 12/13/20 07:49 97.7 F 59 L 18 146/72 93 L 12/12/20 23:38 97.9 F 96 17 165/74 97 12/12/20 22:37 98.8 F 74 16 150/65 99 12/12/20 21:21 75 18 149/73 97 12/12/20 20:43 97.4 F L 86 18 183/75 95 Intake and Output 12/12/20 12/13/20 12/13/20 22:59 06:59 14:59 Other: # Voids 1 Weight 81.647 kg 81.647 kg On physical examination, patient appears comfortable in no apparent distress. HEAD: Normocephalic, atraumatic. EYES: No scleral icterus. No conjunctival injection. MOUTH: No lesions, tongue midline. NECK: Trachea midline, no gross abnormalities. CHEST: Clear to auscultation with no wheezing or rhonchi appreciated. HEART: S1-S2 appreciated. ABDOMEN: Soft, obese, mildly tender to palpation. Bowel sounds are positive. No organomegaly. No guarding or rigidity. EXTREMITIES: No pedal edema. SKIN: No rashes, no jaundice. NEUROLOGIC: Alert and oriented to person and place. Results CBC & Chem 7: 12/12/20 21:03 12/12/20 21:03 Labs: Abnormal Lab Results - Last 24 Hours (Table) 12/12/20 12/12/20 12/12/20 Range/Units 21:03 21:03 21:03 Plt Count 95 L (150-450) k/uL BUN 18 H (7-17) mg/dL Glucose 180 H (74-99) mg/dL Calcium 10.3 H (8.4-10.2) mg/dL Lipase 549 H (23-300) U/L Urine Protein 1+ H (Negative) Urine Ketones 1+ H (Negative) Urine Bacteria Rare H (None) /hpf 12/13/20 Range/Units 04:19 Plt Count (150-450) k/uL BUN (7-17) mg/dL Glucose (74-99) mg/dL Calcium (8.4-10.2) mg/dL Lipase 99 H (23-300) U/L Urine Protein (Negative) Urine Ketones (Negative) Urine Bacteria (None) /hpf CT scan - abdomen: report reviewed (computed tomography scan of the abdomen in evaluation with findings of a large calcified gallstone with no CBD dilation or choledocholithiasis.) Assessment and Plan (1) Nausea & vomiting Narrative/Plan: 85-year-old female with multiple medical comorbidities presenting to the hospital with nausea and vomiting of one day duration with associated headache. Mild elevation in lipase on presentation at 549, may be related to dehydration. Currently reporting symptomatic improvement. Unclear etiology, may be related to uncontrolled reflux, viral gastroenteritis, gastritis, symptomatic cholelithiasis or other etiology. Computed tomography scan of the abdomen performed in evaluation showed large calcified gallstone with no CBD dilation to suggest choledocholithiasis, liver enzymes were also normal. Current Visit: Yes Status: Acute Code(s): R11.2 - NAUSEA WITH VOMITING, UNSPECIFIED SNOMED Code(s): 09651549 (2) Elevated lipase Current Visit: Yes Status: Acute Code(s): R74.8 - ABNORMAL LEVELS OF OTHER SERUM ENZYMES SNOMED Code(s): 590240200 (3) Epigastric pain Current Visit: Yes Status: Acute Code(s): R10.13 - EPIGASTRIC PAIN SNOMED Code(s): 61487573 Plan: Supportive care Okay for diet as tolerated Continue to monitor CBC, BMP, LFTs Continue antiemetic therapy as needed Continue Protonix daily No plan for endoscopy at this time Can consider HIDA scan for further evaluation of the gallbladder and to rule out cholecystitis if symptoms persist Thank you for allowing us to participate in the care of the patient
[2020-12-14] MEDS: SODIUM CHLORIDE 0.9% 1,000 ML IV SCH ×2 (01:05→09:13)
[2020-12-14 04:54] LABS: HCT 37.8 % (34.0-46.0); MCHC 34.3 g/dL (31.0-37.0); MCV 87.3 fL (80.0-100.0); Mean Platelet Volume 7.8; Platelet Count 108 k/uL (150-450); RBC 4.33 m/uL (3.80-5.40); RDW 13.4 % (11.5-15.5); WBC 8.5 k/uL (3.8-10.6)
[2020-12-14 07:01] LABS: Glucose,Whole Blood 126 mg/dL (75-99)
[2020-12-14 08:00] VITALS: BP 147/63; PULSE 61; TEMP 97.6
[2020-12-14] MEDS: PANTOPRAZOLE 40 MG/10 ML VIAL IVP SCH (08:04)
--- NOTE | 2020-12-14 08:32 | P.PN ---
Subjective Progress Note Date: 12/14/20 Principal diagnosis: This is a continue progress note for an 85-year-old white female essentially been for pancreatitis. She did tolerate minimal diet yesterday and now feels much better. Appreciate GI input. No significant nausea or vomiting. Objective - Vital Signs Vital signs: Vital Signs Temp 97.6 F 12/14/20 07:58 Pulse 61 12/14/20 07:58 Resp 16 12/14/20 07:58 BP 147/63 12/14/20 07:58 Pulse Ox 95 12/14/20 07:58 Intake & Output 12/13/20 12/14/20 12/14/20 18:59 06:59 18:59 Other: # Voids 3 3 # Bowel Movements 1 - Constitutional General appearance: Present: average body habitus - Neck Neck: Absent: lymphadenopathy - Respiratory Respiratory: bilateral: CTA - Cardiovascular Rhythm: regular Heart sounds: normal: S1, S2 Abnormal Heart Sounds: Absent: S3 Gallop - Gastrointestinal General gastrointestinal: Present: soft. Absent: tenderness - Psychiatric Psychiatric: Present: A&O x's 3 - Labs CBC & Chem 7: 12/14/20 04:12 12/12/20 21:03 Labs: Abnormal Lab Results - Last 24 Hours (Table) 12/13/20 12/13/20 12/13/20 Range/Units 04:19 19:59 20:17 Plt Count (150-450) k/uL POC Glucose (mg/dL) 191 H 176 H (75-99) mg/dL Lipase 99 H (14-63) U/L 12/14/20 12/14/20 Range/Units 04:12 07:00 Plt Count 108 L (150-450) k/uL POC Glucose (mg/dL) 126 H (75-99) mg/dL Lipase (14-63) U/L Assessment and Plan (1) Elevated lipase Current Visit: Yes Status: Acute Code(s): R74.8 - ABNORMAL LEVELS OF OTHER SERUM ENZYMES SNOMED Code(s): 617371769 (2) Nausea & vomiting Current Visit: Yes Status: Acute Code(s): R11.2 - NAUSEA WITH VOMITING, UNSPECIFIED SNOMED Code(s): 01280506 (3) Diabetes Current Visit: No Status: Acute Code(s): E11.9 - TYPE 2 DIABETES MELLITUS WITHOUT COMPLICATIONS SNOMED Code(s): 48040301 Plan: Resolving enzymatic elevation. Push diet. Appreciate GI input. Check enzymes in a.m. Anticipate discharge in next 24 hours.
[2020-12-14] MEDS: metFORMIN 850 MG TAB PO SCH (09:13)
[2020-12-14] MEDS: amLODIPine 10 MG TAB PO SCH (09:13)
[2020-12-14] MEDS: NON FORMULARY DRUG (Ergocalciferol (Vitamin D2) [Vitamin D2 (2000 Iu)] 50 MCG Tablet) PO SCH (09:13)
[2020-12-14] MEDS: hydroCHLOROthiazide 12.5 MG CAP PO SCH (09:13)
[2020-12-14] MEDS: LOSARTAN 50 MG TAB PO SCH (09:14)
[2020-12-14] MEDS: methIMAzole 5 MG TAB PO SCH (09:14)
[2020-12-14] MEDS: PARoxetine 20 MG TAB PO SCH (09:14)
[2020-12-14 09:34] LABS: African American GFR (CKD) 92.2 (60.0-200.0); Albumin 3.7 g/dL (3.80-4.90); Albumin/Globulin Ratio 2.31 (1.60-3.17); Anion Gap 3.5 mmol/L (4.00-12.00); BUN/Creat Ratio 11.43 Ratio (12.00-20.00); Calcium 9.2 mg/dL (8.7-10.3); Carbon Dioxide 29.5 mmol/L (21.6-31.8); Globulin 1.6 g/dL (1.6-3.3); Non-African American GFR(CKD) 79.6 (60.0-200.0); Potassium 3.8 mmol/L (3.5-5.5); Total Bilirubin 0.5 mg/dL (0.2-1.2); Total Protein 5.3 g/dL (6.2-8.2)
--- NOTE | 2020-12-14 10:43 | P.DS ---
Providers Date of admission: 12/12/20 22:49 Attending physician: Mehrdad Waldron Consults: 12/12/20 23:14 Consult Physician Stat Consulting Provider: Eliu Domingo Reason/Comments: lipase elevated/N/V Do you want consulting provider notified?: Yes, Notify in am Primary care physician: Mehrdad Waldron - Discharge Diagnosis(es) (1) Elevated lipase Current Visit: Yes Status: Acute (2) Nausea & vomiting Current Visit: Yes Status: Acute (3) Diabetes Current Visit: No Status: Acute Hospital Course: The patient came in with early pancreatitis. Cleared by GI and tolerating diet of low fat. We will followup in 2-3 days Patient Condition at Discharge: Stable Plan - Discharge Summary Discharge Rx Participant: No New Discharge Prescriptions: Continue metFORMIN HCL [Glucophage] 850 mg PO BID-W/MEALS PARoxetine [Paxil] 20 mg PO DAILY Aspirin 81 mg PO DAILY Losartan/Hydrochlorothiazide [Hyzaar 100-12.5 Tablet] 1 tab PO DAILY Pravastatin Sodium 80 mg PO HS amLODIPine [Norvasc] 10 mg PO DAILY LORazepam [Ativan] 0.5 mg PO DAILY PRN PRN Reason: Anxiety Methimazole [Tapazole] 5 mg PO DAILY Donepezil HCl [Aricept] 10 mg PO HS Ergocalciferol (Vitamin D2) [Vitamin D2 (2000 Iu)] 50 mcg PO BID Discharge Medication List PARoxetine [Paxil] 20 mg PO DAILY 08/10/14 [History] metFORMIN HCL [Glucophage] 850 mg PO BID-W/MEALS 08/10/14 [History] Aspirin 81 mg PO DAILY 12/07/14 [History] Losartan/Hydrochlorothiazide [Hyzaar 100-12.5 Tablet] 1 tab PO DAILY 08/24/16 [History] Pravastatin Sodium 80 mg PO HS 05/01/17 [History] amLODIPine [Norvasc] 10 mg PO DAILY 08/08/17 [History] LORazepam [Ativan] 0.5 mg PO DAILY PRN 08/27/17 [History] Methimazole [Tapazole] 5 mg PO DAILY 09/17/17 [History] Donepezil HCl [Aricept] 10 mg PO HS 12/12/20 [History] Ergocalciferol (Vitamin D2) [Vitamin D2 (2000 Iu)] 50 mcg PO BID 12/12/20 [History] Follow up Appointment(s)/Referral(s): Mehrdad Waldron MD [Primary Care Provider] - 1-2 days
== END 2020-12-14 11:30 | disposition home or self-care (01) ==
LOC: EC 20:38 → 6NMEDSUR 22:49
PROVIDERS: ADMIT Family Medicine; ATTEND Family Medicine
DX: K85.90 Acute pancreatitis without necrosis or infection, unspecified (principal); R74.8 Abnormal levels of other serum enzymes; R51.9 Headache, unspecified; E11.9 Type 2 diabetes mellitus without complications; R19.7 Diarrhea, unspecified; F41.9 Anxiety disorder, unspecified; R41.3 Other amnesia; Z20.822 Contact with and (suspected) exposure to COVID-19; F03.90 Unspecified dementia, unspecified severity, without behavioral disturbance, psychotic disturbance, mood disturbance, and anxiety; F32.9 Major depressive disorder, single episode, unspecified; E78.5 Hyperlipidemia, unspecified; I10 Essential (primary) hypertension; E04.2 Nontoxic multinodular goiter; M19.90 Unspecified osteoarthritis, unspecified site; Z85.820 Personal history of malignant melanoma of skin; Z90.710 Acquired absence of both cervix and uterus; Z79.899 Other long term (current) drug therapy; Z79.84 Long term (current) use of oral hypoglycemic drugs; Z79.82 Long term (current) use of aspirin; E66.9 Obesity, unspecified; Z68.32 Body mass index [BMI] 32.0-32.9, adult; Z82.49 Family history of ischemic heart disease and other diseases of the circulatory system
CPT/HCPCS: 96376 ×2; 96361 ×2; 96374; 96375; 99285; 36415; 93005; 80053 ×2; 82150 ×2; 83605; 83690 ×3; 83735; 84484; 85025; 85027; 85610; 85730; 81001; 87635; 76705; 70450; 74177; G0378 ×3; S0183; J2405; C9113 ×3; Q9967

== ENCOUNTER 2020-12-17 00:02 | Emergency (ER) | payer MEDICARE ==
[2020-12-17 00:11] VITALS: TEMP 97.8
[2020-12-17] MEDS ORDERED: MORPHINE SULFATE 2 MG/ML SYRINGE IVP STA (00:20)
[2020-12-17] MEDS ORDERED: ONDANSETRON 4 MG/2 ML VIAL IVP STA (00:20)
[2020-12-17] MEDS ORDERED: SODIUM CHLORIDE 0.9% 500 ML 500 ML IV STA (00:20)
--- NOTE | 2020-12-17 00:29 | ED ---
Abdominal Pain HPI - General Chief Complaint: Abdominal Pain Stated Complaint: Abd Pain Time Seen by Provider: 12/17/20 00:11 Source: patient Mode of arrival: ambulatory Limitations: no limitations - History of Present Illness Initial Comments: 85 year-old female patient presents to the emergency department for evaluation of lower abdominal pain and nausea. Patient was discharged from this facility on 12/14 after being admitted for pancreatitis and vomiting. Patient states that she was feeling better at time of discharge, but started to feel poorly again yesterday. She states she has been very nauseated and has had no appetite. She is not eating or drinking. States she is having pain over the lower abdomen. She states she has had a small bowel movement since discharge. She is passing gas. Denies any fever or chills. Denies hematuria, dysuria, urinary urgency, or urinary frequency. Denies history of abdominal surgery. Patient denies any recent rash, cough, shortness of breath, chest pain, back pain, numbness, tingling, dizziness, weakness, headache, visual changes, or any other complaints. - Related Data Home Medications Medication Instructions Recorded Confirmed PARoxetine [Paxil] 20 mg PO DAILY 08/10/14 12/12/20 metFORMIN HCL [Glucophage] 850 mg PO BID-W/MEALS 08/10/14 12/12/20 Aspirin 81 mg PO DAILY 12/07/14 12/12/20 Losartan/Hydrochlorothiazide 1 tab PO DAILY 08/24/16 12/12/20 [Hyzaar 100-12.5 Tablet] Pravastatin Sodium 80 mg PO HS 05/01/17 12/12/20 amLODIPine [Norvasc] 10 mg PO DAILY 08/08/17 12/12/20 LORazepam [Ativan] 0.5 mg PO DAILY PRN 08/27/17 12/12/20 Methimazole [Tapazole] 5 mg PO DAILY 09/17/17 12/12/20 Donepezil HCl [Aricept] 10 mg PO HS 12/12/20 12/12/20 Ergocalciferol (Vitamin D2) 50 mcg PO BID 12/12/20 12/12/20 [Vitamin D2 (2000 Iu)] Previous Rx's Medication Instructions Recorded Docusate [Colace] 100 mg PO DAILY #10 capsule 12/17/20 Ondansetron [Zofran ODT] 4 mg PO Q8HR PRN #10 tab 12/17/20 Allergies Allergy/AdvReac Type Severity Reaction Status Date / Time No Known Allergies Allergy Verified 12/17/20 00:11 Review of Systems ROS Statement: Those systems with pertinent positive or pertinent negative responses have been documented in the HPI. ROS Other: All systems not noted in ROS Statement are negative. 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 Previous thyroid nodules. History of Any Multi-Drug Resistant Organisms: None Reported Past Surgical History: Hysterectomy Past Anesthesia/Blood Transfusion Reactions: No Reported Reaction Past Psychological History: Depression Smoking Status: Never smoker Past Alcohol Use History: None Reported Past Drug Use History: None Reported - Past Family History Father Family Medical History: Myocardial Infarction ([place]) General Exam Limitations: no limitations General appearance: alert, in no apparent distress, other (this is a well- developed, well-nourished adult female patient in no acute distress.) Eye exam: Present: normal appearance, PERRL, EOMI. Absent: scleral icterus, conjunctival injection, periorbital swelling ENT exam: Present: normal exam, normal oropharynx, mucous membranes moist Respiratory exam: Present: normal lung sounds bilaterally. Absent: respiratory distress, wheezes, rales, rhonchi, stridor Cardiovascular Exam: Present: regular rate, normal rhythm, normal heart sounds. Absent: systolic murmur, diastolic murmur, rubs, gallop, clicks GI/Abdominal exam: Present: soft, tenderness (suprapubic and left lower quadrant tenderness), normal bowel sounds. Absent: distended, guarding, rebound, rigid Neurological exam: Present: alert, oriented X3, CN II-XII intact Psychiatric exam: Present: normal affect, normal mood Skin exam: Present: warm, dry, intact, normal color. Absent: rash Course Vital Signs 12/17/20 00:05 Temperature 97.8 F Pulse Rate 65 Respiratory 22 Rate Blood Pressure 176/68 O2 Sat by Pulse 97 Oximetry Medical Decision Making - Medical Decision Making 85-year-old female patient presents to the emergency department today for evaluation of nausea abdominal pain. Physical examination does reveal tenderness over the lower abdomen. Labs reviewed and did reveal elevated white blood cell count at 10.9. Glucose is 140. Troponin is negative. Urinalysis shows no evidence for infection. She had ketones in the urine consistent with dehydration. She is given IV fluids and nausea medication. Given a small dose of pain medication. She did have CT abdomen and pelvis during admission about a week ago. This was reviewed. KUB was obtained today and did show mild to moderate stool throughout the colon but no other abnormalities. I did discuss findings and results with the patient and her daughter. She will be discharged home with prescription for nausea medication and stool softener. She is instructed to follow-up with her primary care physician, she has an appointment on Friday. Return parameters were discussed in detail. They verbalize understanding and agree with this plan. Case discussed with my attending Dr. Haines. - Lab Data Result diagrams: 12/17/20 00:45 12/17/20 00:45 Lab Results 12/17/20 12/17/20 12/17/20 Range/Units 00:45 00:45 00:45 WBC 10.9 H (3.8-10.6) k/uL RBC 4.97 (3.80-5.40) m/uL Hgb 14.9 (11.4-16.0) gm/dL Hct 42.7 (34.0-46.0) % MCV 85.8 (80.0-100.0) fL MCH 30.0 (25.0-35.0) pg MCHC 35.0 (31.0-37.0) g/dL RDW 13.7 (11.5-15.5) % Plt Count 112 L (150-450) k/uL MPV 7.7 Neutrophils % 70 % Lymphocytes % 15 % Monocytes % 11 % Eosinophils % 1 % Basophils % 1 % Neutrophils # 7.6 (1.3-7.7) k/uL Lymphocytes # 1.6 (1.0-4.8) k/uL Monocytes # 1.2 H (0-1.0) k/uL Eosinophils # 0.1 (0-0.7) k/uL Basophils # 0.1 (0-0.2) k/uL Sodium 137 (137-145) mmol/L Potassium 3.9 (3.5-5.1) mmol/L Chloride 101 (98-107) mmol/L Carbon Dioxide 27 (22-30) mmol/L Anion Gap 9 mmol/L BUN 17 (7-17) mg/dL Creatinine 0.74 (0.52-1.04) mg/dL Est GFR (CKD-EPI)AfAm 87 (>60 ml/min/1.73 sqM) Est GFR (CKD-EPI)NonAf 75 (>60 ml/min/1.73 sqM) Glucose 140 H (74-99) mg/dL Plasma Lactic Acid Simon (0.7-2.0) mmol/L Calcium 10.6 H (8.4-10.2) mg/dL Total Bilirubin 0.9 (0.2-1.3) mg/dL AST 20 (14-36) U/L ALT 17 (4-34) U/L Alkaline Phosphatase 79 (38-126) U/L Troponin I (0.000-0.034) ng/mL Total Protein 7.2 (6.3-8.2) g/dL Albumin 4.2 (3.5-5.0) g/dL Amylase 51 (30-110) U/L Lipase 375 H (23-300) U/L Urine Color Yellow Urine Appearance Clear (Clear) Urine pH 6.0 (5.0-8.0) Ur Specific [place] 1.020 (1.001-1.035) Urine Protein 2+ H (Negative) Urine Glucose (UA) Negative (Negative) Urine Ketones 2+ H (Negative) Urine Blood Negative (Negative) Urine Nitrite Negative (Negative) Urine Bilirubin Negative (Negative) Urine Urobilinogen <2.0 (<2.0) mg/dL Ur Leukocyte Esterase Negative (Negative) Urine WBC 1 (0-5) /hpf Ur Squamous Epith Cells 2 (0-4) /hpf Calcium Oxalate Crystal Many H (None) /hpf Hyaline Casts 1 (0-2) /lpf Urine Mucus Occasional H (None) /hpf 12/17/20 12/17/20 Range/Units 00:45 00:45 WBC (3.8-10.6) k/uL RBC (3.80-5.40) m/uL Hgb (11.4-16.0) gm/dL Hct (34.0-46.0) % MCV (80.0-100.0) fL MCH (25.0-35.0) pg MCHC (31.0-37.0) g/dL RDW (11.5-15.5) % Plt Count (150-450) k/uL MPV Neutrophils % % Lymphocytes % % Monocytes % % Eosinophils % % Basophils % % Neutrophils # (1.3-7.7) k/uL Lymphocytes # (1.0-4.8) k/uL Monocytes # (0-1.0) k/uL Eosinophils # (0-0.7) k/uL Basophils # (0-0.2) k/uL Sodium (137-145) mmol/L Potassium (3.5-5.1) mmol/L Chloride (98-107) mmol/L Carbon Dioxide (22-30) mmol/L Anion Gap mmol/L BUN (7-17) mg/dL Creatinine (0.52-1.04) mg/dL Est GFR (CKD-EPI)AfAm (>60 ml/min/1.73 sqM) Est GFR (CKD-EPI)NonAf (>60 ml/min/1.73 sqM) Glucose (74-99) mg/dL Plasma Lactic Acid Simon 1.2 (0.7-2.0) mmol/L Calcium (8.4-10.2) mg/dL Total Bilirubin (0.2-1.3) mg/dL AST (14-36) U/L ALT (4-34) U/L Alkaline Phosphatase (38-126) U/L Troponin I <0.012 (0.000-0.034) ng/mL Total Protein (6.3-8.2) g/dL Albumin (3.5-5.0) g/dL Amylase (30-110) U/L Lipase (23-300) U/L Urine Color Urine Appearance (Clear) Urine pH (5.0-8.0) Ur Specific [place] (1.001-1.035) Urine Protein (Negative) Urine Glucose (UA) (Negative) Urine Ketones (Negative) Urine Blood (Negative) Urine Nitrite (Negative) Urine Bilirubin (Negative) Urine Urobilinogen (<2.0) mg/dL Ur Leukocyte Esterase (Negative) Urine WBC (0-5) /hpf Ur Squamous Epith Cells (0-4) /hpf Calcium Oxalate Crystal (None) /hpf Hyaline Casts (0-2) /lpf Urine Mucus (None) /hpf - EKG Data -: EKG Interpreted by Me EKG Comments: EKG obtained at 0052 shows sinus rhythm with occasional PVCs. Ventricular rate is 64, NH interval 170, QRS duration 82, QT 436, QTc 449. No evidence of ST elevation or depression. Disposition Clinical Impression: Abdominal pain, Nausea Disposition: HOME SELF-CARE Condition: Good Instructions (If sedation given, give patient instructions): Acute Nausea and Vomiting (ED), Abdominal Pain (ED) Additional Instructions: Take medications as directed. Follow up the primary care physician as you have planned. Return to the emergency department for any new, worsening, or concerning symptoms. Prescriptions: Docusate [Colace] 100 mg PO DAILY #10 capsule Ondansetron [Zofran ODT] 4 mg PO Q8HR PRN #10 tab PRN Reason: Nausea Is patient prescribed a controlled substance at d/c from ED?: No Referrals: Mehrdad Waldron MD [Primary Care Provider] - 1-2 days Time of Disposition: 02:01
[2020-12-17 00:53] LABS: Basophils # (A) 0.1 k/uL (0-0.2); Basophils % (A) 1 %; Eosinophils # (A) 0.1 k/uL (0-0.7); Eosinophils % (A) 1 %; HCT 42.7 % (34.0-46.0); HGB 14.9 gm/dL (11.4-16.0); Lymphocytes # (A) 1.6 k/uL (1.0-4.8); Lymphocytes % (A) 15 %; MCV 85.8 fL (80.0-100.0); Mean Platelet Volume 7.7; Monocytes # (A) 1.2 k/uL (0-1.0); Monocytes % (A) 11 %; Neutrophils # (A) 7.6 k/uL (1.3-7.7); Neutrophils % (A) 70 %; Platelet Count 112 k/uL (150-450); RBC 4.97 m/uL (3.80-5.40); RDW 13.7 % (11.5-15.5); WBC 10.9 k/uL (3.8-10.6)
--- NOTE | 2020-12-17 00:54 | XR ---
EXAM: XR Abdomen, 1 View CLINICAL HISTORY: ITS.REASON XR Reason: abdominal pain TECHNIQUE: Frontal supine view of the abdomen/pelvis. COMPARISON: 12/07/2014. FINDINGS: Gastrointestinal tract: Mild to moderate quantity of stool throughout the colon. Nonspecific bowel gas pattern. No dilation. Organs: A lamellated gallstone is again noted in the right mid abdomen. Bones/joints: Osteopenia. 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 Vasculature: Pelvic phleboliths. IMPRESSION: 1. Cholelithiasis, similar to that noted on the previous study. Gallstone has slightly increased in size. 2. Nonspecific bowel gas pattern.
[2020-12-17 01:03] LABS: Albumin 4.2 g/dL (3.5-5.0); Calcium 10.6 mg/dL (8.4-10.2); Potassium 3.9 mmol/L (3.5-5.1); Total Bilirubin 0.9 mg/dL (0.2-1.3); Total Protein 7.2 g/dL (6.3-8.2)
[2020-12-17 01:39] LABS: Appearance,Urine Clear (Clear); Bilirubin,Urine Negative (Negative); Blood,Urine Negative (Negative); Calcium Oxalate Crystals,Urine Many /hpf; Color,Urine Yellow; Glucose,Urine (UA) Negative (Negative); Hyaline Casts,Urine 1 /lpf (0-2); Ketones,Urine 2+ (Negative); Leukocyte Esterase,Urine Negative (Negative); Mucus,Urine Occasional /hpf; Nitrite,Urine Negative (Negative); Protein,Urine 2+ (Negative); Squamous Epithelial Cell,Urine 2 /hpf (0-4); Urobilinogen,Urine <2.0 mg/dL (<2.0); WBC,Urine 1 /hpf (0-5)
[2020-12-17] MEDS ORDERED: FAMOTIDINE 20 MG/2 ML VIAL IV STA (01:59)
[2020-12-17] MEDS ORDERED: DOCUSATE 100 MG CAP PO STA (01:59)
[2020-12-17 02:31] VITALS: BP 137/79; PULSE 88; RESP 16
== END 2020-12-17 02:31 | disposition home or self-care (01) ==
LOC: EC 00:02
DX: R10.30 Lower abdominal pain, unspecified (principal); R11.0 Nausea; E11.9 Type 2 diabetes mellitus without complications; I10 Essential (primary) hypertension; E78.5 Hyperlipidemia, unspecified; F03.90 Unspecified dementia, unspecified severity, without behavioral disturbance, psychotic disturbance, mood disturbance, and anxiety; F32.9 Major depressive disorder, single episode, unspecified; Z79.82 Long term (current) use of aspirin; Z79.84 Long term (current) use of oral hypoglycemic drugs; Z79.899 Other long term (current) drug therapy; Z85.820 Personal history of malignant melanoma of skin
CPT/HCPCS: 36415; 93005; 80053; 82150; 83605; 83690; 84484; 85025; 81001; 74018; 99284; 96374; 96375 ×2; 96361; J2405; J2270

== ENCOUNTER 2020-12-29 20:54 | Observation (INO) | payer MEDICARE ==
[2020-12-29] MEDS ORDERED: MORPHINE SULFATE 2 MG/ML SYRINGE IVP STA (21:40)
[2020-12-29] MEDS ORDERED: SODIUM CHLORIDE 0.9% 500 ML 500 ML IV STA (21:40)
[2020-12-29] MEDS ORDERED: ONDANSETRON 4 MG/2 ML VIAL IVP STA (21:40)
[2020-12-29 22:32] LABS: Basophils # (A) 0.1 k/uL (0-0.2); Basophils % (A) 1 %; Eosinophils # (A) 0.1 k/uL (0-0.7); Eosinophils % (A) 1 %; HCT 45.3 % (34.0-46.0); HGB 15.2 gm/dL (11.4-16.0); Lymphocytes # (A) 2.5 k/uL (1.0-4.8); Lymphocytes % (A) 20 %; MCH 29.1 pg (25.0-35.0); MCHC 33.6 g/dL (31.0-37.0); MCV 86.6 fL (80.0-100.0); Monocytes # (A) 1.5 k/uL (0-1.0); Monocytes % (A) 13 %; Neutrophils # (A) 7.7 k/uL (1.3-7.7); Neutrophils % (A) 64 %; Platelet Count 136 k/uL (150-450); RBC 5.23 m/uL (3.80-5.40); RDW 13.5 % (11.5-15.5); WBC 12.1 k/uL (3.8-10.6)
[2020-12-29 22:42] LABS: Albumin 4.3 g/dL (3.5-5.0); Calcium 10.6 mg/dL (8.4-10.2); Potassium 4.1 mmol/L (3.5-5.1); Total Bilirubin 0.7 mg/dL (0.2-1.3); Total Protein 7.2 g/dL (6.3-8.2)
[2020-12-29 22:49] LABS: Appearance,Urine Cloudy (Clear); Bilirubin,Urine Negative (Negative); Blood,Urine Negative (Negative); Calcium Oxalate Crystals,Urine Many /hpf; Color,Urine Yellow; Glucose,Urine (UA) Negative (Negative); Ketones,Urine Negative (Negative); Leukocyte Esterase,Urine Negative (Negative); Mucus,Urine Occasional /hpf; Nitrite,Urine Negative (Negative); PH, Urine 5.5 (5.0-8.0); Protein,Urine Trace (Negative); RBC,Urine 4 /hpf (0-5); Specific Gravity,Urine 1.025 (1.001-1.035); Squamous Epithelial Cell,Urine 1 /hpf (0-4); Urobilinogen,Urine <2.0 mg/dL (<2.0); WBC,Urine 3 /hpf (0-5)
--- NOTE | 2020-12-29 22:50 | ED ---
General Adult HPI - General Chief complaint: Weakness Stated complaint: Unable to eat,Shaky,Abd Pain Time Seen by Provider: 12/29/20 21:16 Source: patient Mode of arrival: ambulatory Limitations: no limitations - History of Present Illness Initial comments: 85 year-old female patient presents to the emergency department for evaluation of worsening abdominal pain, nausea, and no appetite. Patient has not been eating or drinking at home. She did have an admission last month on the where she underwent CT abdomen and pelvis and ultrasound of the right upper quadrant. She was diagnosed with gallstones and discharged. She did have an additional emergency visit at the end of November with similar symptoms. She was given a new nausea medication and stool softener and discharged. Patient is returning at this point because the medications are not helping. She has lost 14lbs over the last month without trying. denies any fever or chills. She is reporting generalized abdominal pain. Denies any constipation or diarrhea. Patient denies any recent rash, cough, shortness of breath, chest pain, back pain, numbness, tingling, dizziness, weakness, hematuria, dysuria, urinary urgency, urinary frequency, headache, visual changes, or any other complaints. - Related Data Home Medications Medication Instructions Recorded Confirmed PARoxetine [Paxil] 20 mg PO DAILY 08/10/14 12/29/20 metFORMIN HCL [Glucophage] 850 mg PO BID-W/MEALS 08/10/14 12/29/20 Aspirin 81 mg PO DAILY 12/07/14 12/29/20 Losartan/Hydrochlorothiazide 1 tab PO DAILY 08/24/16 12/29/20 [Hyzaar 100-12.5 Tablet] Pravastatin Sodium 80 mg PO HS 05/01/17 12/29/20 amLODIPine [Norvasc] 10 mg PO DAILY 08/08/17 12/29/20 LORazepam [Ativan] 0.5 mg PO DAILY PRN 08/27/17 12/29/20 Methimazole [Tapazole] 5 mg PO DAILY 09/17/17 12/29/20 Donepezil HCl [Aricept] 10 mg PO HS 12/12/20 12/29/20 Ergocalciferol (Vitamin D2) 50 mcg PO BID 12/12/20 12/29/20 [Vitamin D2 (2000 Iu)] Previous Rx's Medication Instructions Recorded Docusate [Colace] 100 mg PO DAILY #10 capsule 12/17/20 Ondansetron [Zofran ODT] 4 mg PO Q8HR PRN #10 tab 12/17/20 Allergies Allergy/AdvReac Type Severity Reaction Status Date / Time No Known Allergies Allergy Verified 12/29/20 22:57 Review of Systems ROS Statement: Those systems with pertinent positive or pertinent negative responses have been documented in the HPI. ROS Other: All systems not noted in ROS Statement are negative. 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 Previous thyroid nodules. History of Any Multi-Drug Resistant Organisms: None Reported Past Surgical History: Hysterectomy Past Anesthesia/Blood Transfusion Reactions: No Reported Reaction Past Psychological History: Depression Smoking Status: Never smoker Past Alcohol Use History: None Reported Past Drug Use History: None Reported - Past Family History Father Family Medical History: Myocardial Infarction ([place]) General Exam Limitations: no limitations General appearance: alert, in no apparent distress, other (this is a well- developed, well-nourished adult female patient in no acute distress) Cardiovascular Exam: Present: regular rate, normal rhythm, normal heart sounds. Absent: systolic murmur, diastolic murmur, rubs, gallop, clicks GI/Abdominal exam: Present: soft, tenderness (midepigastric and left upper quadrant tenderness), normal bowel sounds. Absent: distended, guarding, rebound, rigid Neurological exam: Present: alert, oriented X3, CN II-XII intact Psychiatric exam: Present: normal affect, normal mood Skin exam: Present: warm, dry, intact, normal color. Absent: rash Course Vital Signs 12/29/20 12/29/20 12/29/20 21:12 22:14 23:00 Temperature 98.9 F 98.3 F Pulse Rate 70 81 78 Respiratory 20 20 18 Rate Blood Pressure 133/77 134/69 144/73 O2 Sat by Pulse 97 99 98 Oximetry Medical Decision Making - Medical Decision Making 85-year-old female patient presents to the emergency department today for evaluation of increasing abdominal pain, lack of appetite, and weight loss. Patient is reporting generalized weakness and shaking.she had an admission at the end of November and a subsequent visit back to the emergency department for similar type complaints. On her admission she was found to have cholelithiasis but no signs of cholecystitis. She also had an episode of mild pancreatitis which did resolve. Physical examination reveals midepigastric and left upper quadrant tenderness. Labs reviewed and showed mild white blood cell count elevation. Normal liver enzymes, bilirubin, lipase. Urinalysis showed no signs of infection. Upon reevaluation patient states that she is not feeling any better. Daughter is quite concerned about her decline. We will admit to the hospital for further evaluation and consult gastroenterology. Case discussed with my attending Dr. Haines. - Lab Data Result diagrams: 12/29/20 21:53 12/29/20 21:53 Lab Results 12/29/20 12/29/20 12/29/20 Range/Units 21:53 21:53 21:53 WBC 12.1 H (3.8-10.6) k/uL RBC 5.23 (3.80-5.40) m/uL Hgb 15.2 (11.4-16.0) gm/dL Hct 45.3 (34.0-46.0) % MCV 86.6 (80.0-100.0) fL MCH 29.1 (25.0-35.0) pg MCHC 33.6 (31.0-37.0) g/dL RDW 13.5 (11.5-15.5) % Plt Count 136 L (150-450) k/uL MPV 8.0 Neutrophils % 64 % Lymphocytes % 20 % Monocytes % 13 % Eosinophils % 1 % Basophils % 1 % Neutrophils # 7.7 (1.3-7.7) k/uL Lymphocytes # 2.5 (1.0-4.8) k/uL Monocytes # 1.5 H (0-1.0) k/uL Eosinophils # 0.1 (0-0.7) k/uL Basophils # 0.1 (0-0.2) k/uL Sodium 139 (137-145) mmol/L Potassium 4.1 (3.5-5.1) mmol/L Chloride 103 (98-107) mmol/L Carbon Dioxide 25 (22-30) mmol/L Anion Gap 11 mmol/L BUN 24 H (7-17) mg/dL Creatinine 0.72 (0.52-1.04) mg/dL Est GFR (CKD-EPI)AfAm 90 (>60 ml/min/1.73 sqM) Est GFR (CKD-EPI)NonAf 78 (>60 ml/min/1.73 sqM) Glucose 144 H (74-99) mg/dL Plasma Lactic Acid Simon (0.7-2.0) mmol/L Calcium 10.6 H (8.4-10.2) mg/dL Total Bilirubin 0.7 (0.2-1.3) mg/dL AST 20 (14-36) U/L ALT 19 (4-34) U/L Alkaline Phosphatase 76 (38-126) U/L Troponin I (0.000-0.034) ng/mL Total Protein 7.2 (6.3-8.2) g/dL Albumin 4.3 (3.5-5.0) g/dL Lipase 260 (23-300) U/L Urine Color Yellow Urine Appearance Cloudy H (Clear) Urine pH 5.5 (5.0-8.0) Ur Specific [place] 1.025 (1.001-1.035) Urine Protein Trace H (Negative) Urine Glucose (UA) Negative (Negative) Urine Ketones Negative (Negative) Urine Blood Negative (Negative) Urine Nitrite Negative (Negative) Urine Bilirubin Negative (Negative) Urine Urobilinogen <2.0 (<2.0) mg/dL Ur Leukocyte Esterase Negative (Negative) Urine RBC 4 (0-5) /hpf Urine WBC 3 (0-5) /hpf Ur Squamous Epith Cells 1 (0-4) /hpf Calcium Oxalate Crystal Many H (None) /hpf Urine Mucus Occasional H (None) /hpf 12/29/20 12/29/20 Range/Units 21:53 21:53 WBC (3.8-10.6) k/uL RBC (3.80-5.40) m/uL Hgb (11.4-16.0) gm/dL Hct (34.0-46.0) % MCV (80.0-100.0) fL MCH (25.0-35.0) pg MCHC (31.0-37.0) g/dL RDW (11.5-15.5) % Plt Count (150-450) k/uL MPV Neutrophils % % Lymphocytes % % Monocytes % % Eosinophils % % Basophils % % Neutrophils # (1.3-7.7) k/uL Lymphocytes # (1.0-4.8) k/uL Monocytes # (0-1.0) k/uL Eosinophils # (0-0.7) k/uL Basophils # (0-0.2) k/uL Sodium (137-145) mmol/L Potassium (3.5-5.1) mmol/L Chloride (98-107) mmol/L Carbon Dioxide (22-30) mmol/L Anion Gap mmol/L BUN (7-17) mg/dL Creatinine (0.52-1.04) mg/dL Est GFR (CKD-EPI)AfAm (>60 ml/min/1.73 sqM) Est GFR (CKD-EPI)NonAf (>60 ml/min/1.73 sqM) Glucose (74-99) mg/dL Plasma Lactic Acid Simon 1.3 (0.7-2.0) mmol/L Calcium (8.4-10.2) mg/dL Total Bilirubin (0.2-1.3) mg/dL AST (14-36) U/L ALT (4-34) U/L Alkaline Phosphatase (38-126) U/L Troponin I <0.012 (0.000-0.034) ng/mL Total Protein (6.3-8.2) g/dL Albumin (3.5-5.0) g/dL Lipase (23-300) U/L Urine Color Urine Appearance (Clear) Urine pH (5.0-8.0) Ur Specific [place] (1.001-1.035) Urine Protein (Negative) Urine Glucose (UA) (Negative) Urine Ketones (Negative) Urine Blood (Negative) Urine Nitrite (Negative) Urine Bilirubin (Negative) Urine Urobilinogen (<2.0) mg/dL Ur Leukocyte Esterase (Negative) Urine RBC (0-5) /hpf Urine WBC (0-5) /hpf Ur Squamous Epith Cells (0-4) /hpf Calcium Oxalate Crystal (None) /hpf Urine Mucus (None) /hpf Disposition Clinical Impression: Abdominal pain, Anorexia, Weakness Disposition: ADMITTED IP TO THIS [facility] Condition: Serious Referrals: Mehrdad Waldron MD [Primary Care Provider] - 1-2 days Decision to Admit Reason: Admit from EC Decision Date: 12/29/20 Decision Time: 23:33
[2020-12-29] MEDS ORDERED: ONDANSETRON 4 MG/2 ML VIAL IVP PRN (23:29)
[2020-12-29] MEDS ORDERED: NALOXONE 0.4 MG/ML 1 ML VIAL IV PRN (23:29)
[2020-12-29 23:36] LABS: Glucose,Whole Blood 111 mg/dL (75-99)
[2020-12-30] MEDS: SODIUM CHLORIDE 0.9% 1,000 ML IV SCH ×2 (01:35→21:20)
[2020-12-30 06:26] LABS: Glucose,Whole Blood 100 mg/dL (75-99)
[2020-12-30] MEDS: FAMOTIDINE 20 MG TAB PO SCH ×2 (07:52→21:20)
[2020-12-30 11:30] VITALS: BMI 31.1
--- NOTE | 2020-12-30 13:29 | CONS ---
CONSULTATION DATE OF DICTATION: December 30, 2020. REASON FOR CONSULTATION: Abdominal pain. Decreased appetite. HISTORY OF PRESENT ILLNESS: The patient is an 85-year-old pleasant white female who is a poor historian, was admitted to the hospital yesterday when she presented to the emergency room with worsening abdominal pain associated with nausea, decreased appetite, not feeling well. The patient had a similar hospitalization on December 12 of last month at which time she was evaluated by Dr. Domingo. She did have a CT of the abdomen and pelvis done that showed a large gallstone noted, but otherwise unremarkable. The patient was treated symptomatically and she was discharged home. She is a very poor historian. She states that she is having some abdominal pain but cannot provide any details. She thinks the pain is mostly in the lower abdominal area. She denies any nausea, vomiting. No rectal bleeding or melena. No change in bowel habits. PAST MEDICAL HISTORY: Her past medical history is significant for hypertension, hyperlipidemia, diabetes mellitus, mild dementia, hypothyroidism, degenerative joint disease, history of melanoma in the past. PAST SURGICAL HISTORY: Hysterectomy. MEDICATIONS: Medications at home include: Paxil, Glucophage, aspirin, Hyzaar, pravastatin, Norvasc, Ativan, Tapazole, Aricept, vitamin D2. ALLERGIES: None. SOCIAL HISTORY: No smoking. No alcohol use. FAMILY HISTORY: Unremarkable. REVIEW OF SYSTEMS: CARDIOPULMONARY: She denies any chest pain or shortness of breath. no dysuria or hematuria. MUSCULOSKELETAL unremarkable. SKIN unremarkable. ENDOCRINE unremarkable. PSYCHIATRIC unremarkable. ENT/VISION: Unremarkable. CONSTITUTIONAL: No recent weight loss. No fever, chills, night sweats. PHYSICAL EXAMINATION: She appears comfortable. No apparent distress. VITAL SIGNS: Stable. Blood pressure is 139/73, pulse rate 55, temperature 97.9. HEENT examination unremarkable. Conjunctivae pink. Sclerae anicteric. Oral cavity no lesions. NECK: No JVD. No lymph node enlargement. CHEST was clear to auscultation. HEART: Regular rate and rhythm. ABDOMEN: Soft. Bowel sounds are positive. No organomegaly. There was mild tenderness in the lower abdominal area but no rebound or rigidity. EXTREMITIES: No pedal edema. SKIN no rashes. NEUROLOGIC: Alert and oriented x3. No focal deficits. LABS: WBC 12.1, hemoglobin 15.2, platelets 136, AST, ALT and T-bilirubin and alkaline phosphatase are within normal limits. Basic metabolic panel is normal. BUN is 24, creatinine 0.72. Burch virus PCR is negative. Urinalysis is negative. IMPRESSION: 1. This lady is admitted to the hospital with lower abdominal pain associated with nausea, decreased oral intake, fatigue, on and off for the last 2 weeks duration. On review of her records, she did have a CT of the abdomen and pelvis done during her last hospitalization on December 12 that showed gallstones, but otherwise it was unremarkable. The patient is a poor historian, not very specific in describing her symptoms. Her labs are all within normal limits. It is unclear whether she ever had any EGD or colonoscopy in the past. Symptoms are currently very nonspecific but possibility of peptic ulcer disease or other colonic pathology needs to be considered. 2. History of diabetes mellitus. 3. History of hypertension and hyperlipidemia. 4. History of hyperthyroidism on Tapazole. RECOMMENDATIONS: 1. We will start her on symptomatic and supportive care. 2. Continue with Pepcid 20 mg twice daily. 3. Antiemetics as needed. 4. Advance diet as tolerated. 5. If she continues to have persistent symptoms, we may consider proceeding with endoscopy intervention during this hospitalization. 6. We will follow with you closely. Thank you for this consultation. MMODL / IJN: [id number] /
[2020-12-30] MEDS ORDERED: LORazepam 0.5 MG TAB PO PRN (14:26)
[2020-12-30] MEDS ORDERED: ACETAMINOPHEN TAB 500 MG TAB PO PRN (14:27)
[2020-12-30] MEDS ORDERED: ALPRAZolam 0.25 MG TAB PO PRN (14:27)
[2020-12-30] MEDS ORDERED: HYDROcodone/APAP 5-325MG 1 EACH TAB PO PRN (14:27)
[2020-12-30] MEDS ORDERED: HEPARIN SODIUM,PORCINE 5,000 UNIT/ML 1 ML VIAL SQ SCH (14:30)
--- NOTE | 2020-12-30 16:44 | HP ---
HISTORY AND PHYSICAL DATE OF SERVICE: 12/30/2020 I am covering for Dr. Waldron. CHIEF COMPLAINTS: Weakness and abdominal pain. HISTORY OF PRESENT ILLNESS: 85-year-old woman with a past medical history of multiple medical problems including dementia, history of diabetes, hypertension, hyperlipidemia, DJD, history of melanoma, history of stable brain mass, being followed by Dr. Waldron in the outpatient apparently was admitted last month with complaints of abdominal pain. A CT scan of the abdomen was done which was reviewed personally by me showed clearing of the left renal obstruction and cholelithiasis. The patient was discharged home but currently the patient is complaining of diffuse abdominal pain which is on both sides and as well as significant weakness. The patient has not been drinking or eating at home. There is no history of fever, rigors or chills. No history of headache, loss of consciousness, seizures at this time. PAST MEDICAL HISTORY: History of dementia, history of diabetes type 2, hypertension, hyperlipidemia, DJD, history of melanoma. MEDICATIONS: Medications prior to admission include home medications are: Zofran, Ativan, Glucophage, Norvasc, Pravastatin, Tapazole, Hyzaar, vitamin D 2, Aricept, Colace, aspirin. ALLERGIES: None. FAMILY HISTORY: History of myocardial infarction in the family. SOCIAL HISTORY: No history of smoking. No history of alcohol. REVIEW OF SYSTEMS: ENT: Diminished vision. Diminished hearing. CARDIOVASCULAR: No angina or palpitations. RESPIRATORY: As mentioned earlier. GI: As mentioned earlier. : No dysuria or hematuria. NERVOUS SYSTEM: No numbness, weakness. ALLERGY/IMMUNOLOGY: No asthma or hayfever. MUSCULOSKELETAL: As mentioned earlier. HEMATOLOGY/ONCOLOGY: No history of anemia. ENDOCRINE: History of diabetes. Hyperthyroidism present. CONSTITUTIONAL: As mentioned earlier. DERMATOLOGY: Negative. RHEUMATOLOGY: Negative. PSYCHIATRY: As mentioned earlier. PHYSICAL EXAMINATION: Alert and oriented times three. Pulse 55, blood pressure 139/73, respirations 16, temperature 97.9, pulse ox 98% on room air. HEENT: Conjunctivae normal. Oral mucosa moist. NECK is no jugular venous distention. No carotid bruit. No lymph node enlargement. CARDIOVASCULAR systems: S1, S2 muffled. RESPIRATION: Breath sounds diminished in the bases. No rhonchi. No crackles. ABDOMEN: Soft, obese. Mild diffuse tenderness present on both sides. Otherwise, no guarding, no rigidity. No mass palpable. No ascites. LEGS: No edema. No swelling. NERVOUS SYSTEM: Higher functions as mentioned earlier. Moves all 4 limbs. No focal motor or sensory deficits. LYMPHATICS: No lymph nodes palpable in the neck, axillae or groin. SKIN: No ulcer, no rash and no bleeding. JOINTS: No active deforming arthropathy. LABS: WBC 12.2, hemoglobin 15.2, sodium 139, potassium 4.1. UA noted. COVID-19 is negative. ASSESSMENT: 1. Diffuse abdominal pain for evaluation, rule out cholecystitis and cholelithiasis. 2. Diminished p.o. intake, possible acute gastritis. 3. Increased WBC. 4. Mild thrombocytopenia. 5. Dementia. 6. Diabetes mellitus type 2. 7. Hypertension. 8. Hyperlipidemia. 9. History of degenerative joint disease. 10.Hyperthyroidism. 11.Stable mass on the brain. 12.Previous thyroid nodules. 13.Obesity with body mass index of 31.1. 14.FULL CODE. RECOMMENDATIONS AND DISCUSSION: In this 85-year-old woman who presented with multiple complex medical issues, we will monitor the patient closely, continue the current management and symptomatic treatment. Otherwise previous CT scan reviewed. I would also recommend surgical evaluation for evaluation for the gallbladder. Otherwise, prognosis guarded because of multiple complex medical issues. Continue the rest of medication. DVT prophylaxis. See orders for details. Further recommendations to follow. 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 MMODL / IJN: [id number] /
[2020-12-30 16:54] LABS: T4, Free (Free Thyroxine) 1.41 ng/dL (0.78-2.19)
[2020-12-30] MEDS: metFORMIN 850 MG TAB PO SCH (18:08)
[2020-12-30] MEDS: PANTOPRAZOLE 40 MG/10 ML VIAL IVP SCH (21:18)
[2020-12-30] MEDS: HEPARIN SODIUM,PORCINE 5,000 UNIT/ML 1 ML VIAL SQ SCH (21:18)
[2020-12-30] MEDS: PRAVASTATIN SODIUM 80 MG TAB PO SCH (21:20)
[2020-12-30] MEDS: CHOLECALCIFEROL 25 MCG (1000 IU) TABLET PO SCH (21:20)
[2020-12-30] MEDS: DONEPEZIL 10 MG TAB PO SCH (21:20)
[2020-12-31] MEDS: ASPIRIN 81 MG PO SCH (08:13)
[2020-12-31] MEDS: metFORMIN 850 MG TAB PO SCH ×2 (08:13→17:32)
[2020-12-31] MEDS: PANTOPRAZOLE 40 MG/10 ML VIAL IVP SCH ×2 (08:13→20:11)
[2020-12-31] MEDS: FAMOTIDINE 20 MG TAB PO SCH ×2 (08:13→20:10)
[2020-12-31] MEDS: HEPARIN SODIUM,PORCINE 5,000 UNIT/ML 1 ML VIAL SQ SCH ×2 (08:13→20:10)
[2020-12-31] MEDS: CHOLECALCIFEROL 25 MCG (1000 IU) TABLET PO SCH ×2 (08:13→20:10)
[2020-12-31] MEDS: LOSARTAN 50 MG TAB PO SCH (08:13)
[2020-12-31] MEDS: amLODIPine 10 MG TAB PO SCH (08:13)
[2020-12-31] MEDS: methIMAzole 5 MG TAB PO SCH (08:14)
[2020-12-31] MEDS: PARoxetine 20 MG TAB PO SCH (08:15)
[2020-12-31 11:51] LABS: African American GFR (CKD) 92.2 (60.0-200.0); Anion Gap 5.2 mmol/L (4.00-12.00); BUN/Creat Ratio 14.29 Ratio (12.00-20.00); Calcium 9.5 mg/dL (8.7-10.3); Carbon Dioxide 28.8 mmol/L (21.6-31.8); Non-African American GFR(CKD) 79.6 (60.0-200.0); Potassium 3.9 mmol/L (3.5-5.5)
--- NOTE | 2020-12-31 11:58 | PN ---
PROGRESS NOTE DATE OF SERVICE: 12/31/2020 The patient is an 85-year-old pleasant white female admitted to hospital with diffuse abdominal pain, decreased appetite on and off for the last few days duration. She complains about the same. She had a normal bowel movement this morning. No rectal bleeding or melena. She is on a clear liquid diet, tolerating well. PHYSICAL EXAMINATION: Appears comfortable. VITAL SIGNS: Stable. Blood pressure 136/73, pulse rate 55, temperature 97.7. HEENT examination unremarkable. Conjunctivae pink. Sclerae anicteric. Oral cavity no lesions. NECK: No JVD or lymph node enlargement. CHEST was clear to auscultation. HEART: Regular rate and rhythm. ABDOMEN: She has some tenderness in the epigastric area and some tenderness in the lower abdominal area. EXTREMITIES: No pedal edema. SKIN: No rashes. NEUROLOGIC: Alert and oriented x3. No focal deficits. LABS: No labs available from today. IMPRESSION: 1. Diffuse abdominal pain mostly in the epigastric area with decreased appetite and nausea but no emesis. CT scan two weeks ago showed cholelithiasis. Rule out possibility of peptic ulcer disease. 2. History of hypertension. 3. History of diabetes mellitus. 4. History of hypercholesteremia. RECOMMENDATION: 1. Continue with Protonix 40 mg daily. 2. We will proceed with an upper endoscopy tomorrow to rule out possibility of peptic ulcer disease or upper gastrointestinal pathology. 3. Continue with symptomatic and supportive care. 4. We will follow with you closely. Thank you for this consultation. MMODL / IJN: [id number] /
[2020-12-31 12:44] LABS: Glucose,Whole Blood 121 mg/dL (75-99)
[2020-12-31 13:08] LABS: Basophils # (A) 0.05 X 10*3/uL (0.00-0.10); Basophils % (A) 0.6 %; Eosinophils # (A) 0.13 X 10*3/uL (0.04-0.35); Eosinophils % (A) 1.7 %; HCT 41.2 % (37.2-46.3); HGB 13.3 g/dL (12.0-15.0); Lymphocytes # (A) 1.68 X 10*3/uL (0.90-5.00); Lymphocytes % (A) 21.4 %; MCHC 32.3 g/dL (32.0-37.0); MCV 89.8 fL (80.0-97.0); Mean Platelet Volume 11.2 fL (9.5-12.2); Monocytes # (A) 1.29 X 10*3/uL (0.20-1.00); Monocytes % (A) 16.5 %; Neutrophils # (A) 4.67 X 10*3/uL (1.80-7.70); Neutrophils % (A) 59.5 %; Platelet Count 117 X 10*3/uL (140-440); RBC 4.59 X 10*6/uL (4.10-5.20); RDW 13.2 % (11.5-14.5); WBC 7.84 X 10*3/uL (4.50-10.00)
[2020-12-31 17:22] LABS: Glucose,Whole Blood 116 mg/dL (75-99)
[2020-12-31] MEDS: SODIUM CHLORIDE 0.9% 1,000 ML IV SCH (17:32)
--- NOTE | 2020-12-31 17:35 | PN ---
PROGRESS NOTE DATE OF SERVICE: 12/31/2020 I am covering for Dr. Waldron. This 85-year-old woman who was admitted with diffuse abdominal pain is being closely monitored. The patient possibly has cholecystitis and cholelithiasis also. Gastroenterology following the patient closely. No chest pain. No palpitations. No fever. Dr. Phillips is planning EGD tomorrow. PHYSICAL EXAMINATION: Alert and oriented. Pulse 62, blood pressure 114/60, respirations 16, temperature 97.2, pulse ox 98% on room air. HEENT: Conjunctivae normal. Oral mucosa moist. NECK: No jugular venous distention. No lymph node enlargement. CARDIOVASCULAR: S1, S2, muffled. No S3, no S4, RESPIRATORY: Diminished breath sounds at the bases. No rhonchi, no crackles. ABDOMEN: Soft, nontender. LEGS: No edema, no swelling. NERVOUS SYSTEM: No focal deficits. LABS: WBC 7.84. Platelets are 117. Other labs are noted. TSH is 0.114, however, free T4 is normal. ASSESSMENT: 1. Diffuse abdominal pain for evaluation, rule out cholecystitis, cholelithiasis. 2. Rule out acute gastritis. 3. Diminished p.o. intake, possible acute gastritis. 4. Increased WBC. 5. Mild thrombocytopenia. 6. Dementia. 7. Diabetes mellitus type 2. 8. Hypertension. 9. Hyperlipidemia. 10.History of degenerative joint disease. 11.Hyperthyroidism history. 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 13.Previous thyroid nodule history. 14.Obesity with body mass index of 31.1. 15.FULL CODE. RECOMMENDATIONS AND DISCUSSION: Recommend to continue current management and symptomatic treatment. Otherwise, at this time I recommend repeat labs, symptomatic treatment, EGD by the by Dr. Phillips. Dr. Waldron will follow tomorrow. MMODL / IJN: [id number] /
[2020-12-31] MEDS: DONEPEZIL 10 MG TAB PO SCH (20:11)
[2020-12-31] MEDS: PRAVASTATIN SODIUM 80 MG TAB PO SCH (20:11)
[2020-12-31 20:19] LABS: Glucose,Whole Blood 111 mg/dL (75-99)
[2021-01-01 07:12] LABS: Glucose,Whole Blood 96 mg/dL (75-99)
[2021-01-01 09:52] LABS: African American GFR (CKD) 92.2 (60.0-200.0); Anion Gap 4.3 mmol/L (4.00-12.00); Calcium 9.6 mg/dL (8.7-10.3); Carbon Dioxide 26.7 mmol/L (21.6-31.8); Non-African American GFR(CKD) 79.6 (60.0-200.0); Potassium 3.8 mmol/L (3.5-5.5)
[2021-01-01 09:58] LABS: Basophils # (A) 0.04 X 10*3/uL (0.00-0.10); Basophils % (A) 0.5 %; Eosinophils # (A) 0.11 X 10*3/uL (0.04-0.35); Eosinophils % (A) 1.4 %; HCT 40.9 % (37.2-46.3); HGB 13.4 g/dL (12.0-15.0); Lymphocytes # (A) 1.75 X 10*3/uL (0.90-5.00); Lymphocytes % (A) 21.6 %; MCHC 32.8 g/dL (32.0-37.0); MCV 88.5 fL (80.0-97.0); Mean Platelet Volume 11.6 fL (9.5-12.2); Monocytes # (A) 1.27 X 10*3/uL (0.20-1.00); Monocytes % (A) 15.7 %; Neutrophils # (A) 4.92 X 10*3/uL (1.80-7.70); Neutrophils % (A) 60.6 %; Platelet Count 103 X 10*3/uL (140-440); RBC 4.62 X 10*6/uL (4.10-5.20); WBC 8.11 X 10*3/uL (4.50-10.00)
[2021-01-01] MEDS: PANTOPRAZOLE 40 MG/10 ML VIAL IVP SCH ×2 (11:27→20:14)
[2021-01-01 11:42] LABS: Glucose,Whole Blood 119 mg/dL (75-99)
[2021-01-01] MEDS ORDERED: PROPOFOL 10 MG/ML 20 ML VIAL IV ONE (12:09)
[2021-01-01] MEDS ORDERED: IV FLUID CONTINUATION 1,000 ML IV ONE (12:10)
--- NOTE | 2021-01-01 12:28 | P.PCN ---
Date of Procedure: 01/01/21 Procedure(s) Performed: BRIEF HISTORY: Patient is a 85-year-old, pleasant, white female admitted hospital with diffuse abdominal pain on and off for the last few weeks duration. She was just hospitalized 2 weeks ago at which time a CAT scan of abdomen and pelvis showed gallstones but otherwise unremarkable. She describes the pain and epigastric area lower abdominal area occasional nausea vomiting but no significant change in her bowel habits. She is hence scheduled for an upper endoscopy to evaluate further. PROCEDURE PERFORMED: Esophagogastroduodenoscopy with biopsy. PREOPERATIVE DIAGNOSIS: Diffuse abdominal pain. IV sedation per anesthesia. PROCEDURE: After informed consent was obtained, the patient was brought into the endoscopy unit. IV sedation was administered by Anesthesia under continuous monitoring. Initially the Olympus GIF-140 video endoscope was inserted into the mouth. Esophagus intubated without any difficulty. It was gradually advanced into the stomach and duodenum and carefully examined. The bulb of the duodenum had mild duodenitis and the second part of the duodenum appeared normal. The scope at this time was withdrawn to the stomach, adequately insufflated with air, and upon careful examination, mucosa of the antrum, diffuse gastritis and biopsies were done from this area. body, cardia and the fundus appeared normal. The scope was then withdrawn into the esophagus. The GE junction was located at 39 cm from the incisors. small sliding-type well hernia noted. The rest of the esophagus appeared normal. There were no erosions or ulcerations seen and the patient tolerated the procedure well. IMPRESSION: 1. Mild antral gastritis. 2. Mild duodenitis. RECOMMENDATIONS: The findings of this examination were discussed with the patient as well as a family.. she was advised to follow with the biopsy results. Continue with a clear liquid diet. We will discuss with her heart colonoscopy colonoscopy during this hospitalization.
[2021-01-01] MEDS: metFORMIN 850 MG TAB PO SCH ×2 (13:58→18:06)
[2021-01-01] MEDS: amLODIPine 10 MG TAB PO SCH (13:58)
[2021-01-01] MEDS: LOSARTAN 50 MG TAB PO SCH (13:59)
[2021-01-01] MEDS: HEPARIN SODIUM,PORCINE 5,000 UNIT/ML 1 ML VIAL SQ SCH ×2 (13:59→20:14)
[2021-01-01] MEDS: ASPIRIN 81 MG PO SCH (13:59)
[2021-01-01] MEDS: CHOLECALCIFEROL 25 MCG (1000 IU) TABLET PO SCH ×2 (13:59→20:14)
[2021-01-01] MEDS: FAMOTIDINE 20 MG TAB PO SCH ×2 (13:59→20:14)
[2021-01-01] MEDS: methIMAzole 5 MG TAB PO SCH (14:00)
[2021-01-01] MEDS: PARoxetine 20 MG TAB PO SCH (14:00)
[2021-01-01] MEDS: SODIUM CHLORIDE 0.9% 1,000 ML IV SCH (14:00)
[2021-01-01 16:54] LABS: Glucose,Whole Blood 122 mg/dL (75-99)
[2021-01-01] MEDS: PRAVASTATIN SODIUM 80 MG TAB PO SCH (20:14)
[2021-01-01] MEDS: DONEPEZIL 10 MG TAB PO SCH (20:15)
[2021-01-01 20:23] LABS: Glucose,Whole Blood 114 mg/dL (75-99)
[2021-01-02 07:05] LABS: Glucose,Whole Blood 100 mg/dL (75-99)
--- NOTE | 2021-01-02 08:17 | P.PN ---
Subjective Principal diagnosis: This is a continue progress note an 85-year-old white female with significant abdominal pain. EGD showed gastritis. We will advance diet. No sniffing nausea, vomiting or diarrhea Objective - Vital Signs Vital signs: Vital Signs Temp 98 F 01/02/21 02:00 Pulse 58 L 01/02/21 02:00 Resp 18 01/02/21 02:00 BP 164/61 01/02/21 02:00 Pulse Ox 96 01/02/21 02:00 Intake & Output 01/01/21 01/02/21 01/02/21 18:59 06:59 18:59 Intake Total 450 480 Balance 450 480 Intake: IV 50 Intake, IV Titration 480 Amount Sodium Chloride 0.9% 1, 480 000 ml @ 50 mls/hr IV . Q20H [facility] Rx#:[id number] Oral 400 Other: Voiding Method Toilet Toilet # Voids 1 2 - Constitutional General appearance: Present: no acute distress, obese - EENT Eyes: Absent: abnormal pupil - Neck Neck: Absent: lymphadenopathy - Respiratory Respiratory: bilateral: CTA - Cardiovascular Rhythm: regular Heart sounds: normal: S1, S2 Abnormal Heart Sounds: Absent: S3 Gallop - Gastrointestinal General gastrointestinal: Present: soft. Absent: tenderness - Integumentary Integumentary: Absent: cellulitis - Psychiatric Psychiatric: Present: A&O x's 3, appropriate affect, intact judgment & insight - Labs CBC & Chem 7: 01/01/21 04:56 01/01/21 04:56 Labs: Abnormal Lab Results - Last 24 Hours (Table) 01/01/21 01/01/21 01/01/21 Range/Units 04:56 04:56 11:41 Plt Count 103 L (140-440) X 10*3/uL Monocytes # 1.27 H (0.20-1.00) X 10*3/uL Chloride 110 H (96-109) mmol/L BUN 7.0 L (9.0-27.0) mg/dL BUN/Creatinine Ratio 10.00 L (12.00-20.00) Ratio Glucose 113 H (70-110) mg/dL POC Glucose (mg/dL) 119 H (75-99) mg/dL 01/01/21 01/01/21 01/02/21 Range/Units 16:53 20:21 07:03 Plt Count (140-440) X 10*3/uL Monocytes # (0.20-1.00) X 10*3/uL Chloride (96-109) mmol/L BUN (9.0-27.0) mg/dL BUN/Creatinine Ratio (12.00-20.00) Ratio Glucose (70-110) mg/dL POC Glucose (mg/dL) 122 H 114 H 100 H (75-99) mg/dL Assessment and Plan (1) Abdominal pain Current Visit: Yes Status: Acute Code(s): R10.9 - UNSPECIFIED ABDOMINAL PAIN SNOMED Code(s): 29260206 (2) Diabetes Current Visit: No Status: Acute Code(s): E11.9 - TYPE 2 DIABETES MELLITUS WITHOUT COMPLICATIONS SNOMED Code(s): 78901786 Plan: We will continue to follow closely. Check CMP in a.m. Time with Patient: Less than 30
--- NOTE | 2021-01-02 08:19 | P.PN ---
Subjective Principal diagnosis: Status post EGD The patient is doing quite well. Question need for colonoscopy prior to discharge. The patient is now nothing by mouth per GI. Objective - Vital Signs Vital signs: Vital Signs Temp 98 F 01/02/21 02:00 Pulse 58 L 01/02/21 02:00 Resp 18 01/02/21 02:00 BP 164/61 01/02/21 02:00 Pulse Ox 96 01/02/21 02:00 Intake & Output 01/01/21 01/02/21 01/02/21 18:59 06:59 18:59 Intake Total 450 480 Balance 450 480 Intake: IV 50 Intake, IV Titration 480 Amount Sodium Chloride 0.9% 1, 480 000 ml @ 50 mls/hr IV . Q20H [facility] Rx#:[id number] Oral 400 Other: Voiding Method Toilet Toilet # Voids 1 2 - Constitutional General appearance: Present: obese - EENT Eyes: Absent: abnormal pupil - Neck Neck: Absent: lymphadenopathy - Respiratory Respiratory: bilateral: CTA - Cardiovascular Rhythm: regular Heart sounds: normal: S1, S2 Abnormal Heart Sounds: Absent: S3 Gallop - Gastrointestinal General gastrointestinal: Present: soft. Absent: tenderness - Labs CBC & Chem 7: 01/01/21 04:56 01/01/21 04:56 Labs: Abnormal Lab Results - Last 24 Hours (Table) 01/01/21 01/01/21 01/01/21 Range/Units 04:56 04:56 11:41 Plt Count 103 L (140-440) X 10*3/uL Monocytes # 1.27 H (0.20-1.00) X 10*3/uL Chloride 110 H (96-109) mmol/L BUN 7.0 L (9.0-27.0) mg/dL BUN/Creatinine Ratio 10.00 L (12.00-20.00) Ratio Glucose 113 H (70-110) mg/dL POC Glucose (mg/dL) 119 H (75-99) mg/dL 01/01/21 01/01/21 01/02/21 Range/Units 16:53 20:21 07:03 Plt Count (140-440) X 10*3/uL Monocytes # (0.20-1.00) X 10*3/uL Chloride (96-109) mmol/L BUN (9.0-27.0) mg/dL BUN/Creatinine Ratio (12.00-20.00) Ratio Glucose (70-110) mg/dL POC Glucose (mg/dL) 122 H 114 H 100 H (75-99) mg/dL Assessment and Plan (1) Abdominal pain Current Visit: Yes Status: Acute Code(s): R10.9 - UNSPECIFIED ABDOMINAL PAIN SNOMED Code(s): 23295285 (2) Diabetes Current Visit: No Status: Acute Code(s): E11.9 - TYPE 2 DIABETES MELLITUS WITHOUT COMPLICATIONS SNOMED Code(s): 62991502 Plan: We will continue to follow closely. Question need for colonoscopy per GI. Anticipate discharge once cleared by GI. Time with Patient: Less than 30
[2021-01-02] MEDS: metFORMIN 850 MG TAB PO SCH ×2 (08:59→16:57)
[2021-01-02] MEDS: amLODIPine 10 MG TAB PO SCH (09:07)
[2021-01-02] MEDS: LOSARTAN 50 MG TAB PO SCH (09:07)
[2021-01-02] MEDS: PANTOPRAZOLE 40 MG/10 ML VIAL IVP SCH ×2 (09:07→21:03)
[2021-01-02] MEDS: ASPIRIN 81 MG PO SCH (09:07)
[2021-01-02] MEDS: FAMOTIDINE 20 MG TAB PO SCH ×2 (09:07→21:02)
[2021-01-02] MEDS: CHOLECALCIFEROL 25 MCG (1000 IU) TABLET PO SCH ×2 (09:07→21:03)
[2021-01-02] MEDS: HEPARIN SODIUM,PORCINE 5,000 UNIT/ML 1 ML VIAL SQ SCH ×2 (09:07→21:03)
[2021-01-02] MEDS: SODIUM CHLORIDE 0.9% 1,000 ML IV SCH (09:08)
[2021-01-02] MEDS: methIMAzole 5 MG TAB PO SCH (09:08)
[2021-01-02] MEDS: PARoxetine 20 MG TAB PO SCH (09:09)
[2021-01-02] MEDS ORDERED: MAGNESIUM CITRATE 296 ML BOTTLE PO ONE (10:15)
[2021-01-02 11:39] LABS: Glucose,Whole Blood 113 mg/dL (75-99)
[2021-01-02 12:07] LABS: African American GFR (CKD) 92.2 (60.0-200.0); Anion Gap 9.5 mmol/L (4.00-12.00); Calcium 9.6 mg/dL (8.7-10.3); Carbon Dioxide 26.5 mmol/L (21.6-31.8); Non-African American GFR(CKD) 79.6 (60.0-200.0); Potassium 3.7 mmol/L (3.5-5.5)
[2021-01-02 13:31] LABS: Basophils # (A) 0.05 X 10*3/uL (0.00-0.10); Basophils % (A) 0.6 %; Eosinophils # (A) 0.11 X 10*3/uL (0.04-0.35); Eosinophils % (A) 1.4 %; HCT 40.4 % (37.2-46.3); HGB 13.3 g/dL (12.0-15.0); Lymphocytes # (A) 1.83 X 10*3/uL (0.90-5.00); Lymphocytes % (A) 23.6 %; MCH 29.2 pg (27.0-32.0); MCHC 32.9 g/dL (32.0-37.0); MCV 88.8 fL (80.0-97.0); Mean Platelet Volume 11.4 fL (9.5-12.2); Monocytes # (A) 1.31 X 10*3/uL (0.20-1.00); Monocytes % (A) 16.9 %; Neutrophils # (A) 4.45 X 10*3/uL (1.80-7.70); Neutrophils % (A) 57.2 %; Platelet Count 114 X 10*3/uL (140-440); RBC 4.55 X 10*6/uL (4.10-5.20); RDW 13.1 % (11.5-14.5); WBC 7.77 X 10*3/uL (4.50-10.00)
[2021-01-02 13:32] LABS: Anisocytosis (M) 2+; Toxic Vacuolation 2+
--- NOTE | 2021-01-02 15:30 | P.PN ---
Subjective Progress Note Date: 01/02/21 Principal diagnosis: Abdominal pain, decreased appetite This is a pleasant 85 year old lady who came in to the hosptial for complaints of abdominal pain, nausea, and decreased appetite. She was recently hospitalized for the same. CT of abdomen showed gallstone, otherwise normal. She underwent an upper endoscopy yesterday with findings of mild antral gastritis and duodenitis. She is feeling and looking well today. Denies any pain. She is on a clear liquid diet and scheduled for colonoscopy tomorrow. Objective - Vital Signs Vital signs: Vital Signs Temp 97.7 F 01/02/21 14:37 Pulse 50 L 01/02/21 14:37 Resp 18 01/02/21 14:37 BP 140/69 01/02/21 14:37 Pulse Ox 96 01/02/21 14:37 Intake & Output 01/01/21 01/02/21 01/02/21 18:59 06:59 18:59 Intake Total 450 480 Balance 450 480 Intake: IV 50 Intake, IV Titration 480 Amount Sodium Chloride 0.9% 1, 480 000 ml @ 50 mls/hr IV . Q20H [facility] Rx#:[id number] Oral 400 Other: Voiding Method Toilet Toilet Toilet # Voids 1 2 3 # Bowel Movements 1 - Exam Appears comfortable, is alert and appears in no acute distress. HEENT: Atraumatic, trachea midline, no oral lesions. Lungs : Clear to ausculation Heart: Regular rate and rhythm Abdomen: Soft, nontender, non distended with bowel sounds. Extremities: No pedal edema. Skin: No rashes. No jaundice. Neurologic: Alert and orientated. - Labs CBC & Chem 7: 01/02/21 04:39 01/02/21 04:39 Labs: Abnormal Lab Results - Last 24 Hours (Table) 01/01/21 01/01/21 01/02/21 Range/Units 16:53 20: 04:39 Plt Count 114 L (140-440) X 10*3/uL Monocytes # 1.31 H (0.20-1.00) X 10*3/uL BUN (9.0-27.0) mg/dL BUN/Creatinine Ratio (12.00-20.00) Ratio POC Glucose (mg/dL) 122 H 114 H (75-99) mg/dL 0201/02/21 01/02/21 Range/Units 04:39 07:03 11:38 Plt Count (140-440) X 10*3/uL Monocytes # (0.20-1.00) X 10*3/uL BUN 7.0 L (9.0-27.0) mg/dL BUN/Creatinine Ratio 10.00 L (12.00-20.00) Ratio POC Glucose (mg/dL) 100 H 113 H (75-99) mg/dL Assessment and Plan Assessment: 1. Abdominal pain: This is a lady admitted to the hospital with complaints of nausea, abdominal pain, and decreased appetite for the last two weeks duration. Recent Ct of abdomen showed gallstones otherwise no other significant findings. She underwent upper endoscopy yesterday which revealed mild antral gastritis and duodenitis. She is scheduled for colonoscopy for tomorrow. 2. Diabetes mellitus 3. Hypertension and Hyperlipidemia Plan: 1. Supportive care 2. Clear liquid diet 3. NPO after midnight 4. Patient scheduled for colonoscopy tomorrow 3. Continue protonix Dr. Beverley Phillips I agree with the dictator's note, documented as a scribe by Ashanti LEMA
[2021-01-02] MEDS ORDERED: PEG 3350-NA SULF,BICARB,CL/KCL 4,000 ML BOTTLE PO ONE (16:00)
[2021-01-02 16:54] LABS: Glucose,Whole Blood 109 mg/dL (75-99)
[2021-01-02 21:01] LABS: Glucose,Whole Blood 95 mg/dL (75-99)
[2021-01-02] MEDS: DONEPEZIL 10 MG TAB PO SCH (21:02)
[2021-01-02] MEDS: PRAVASTATIN SODIUM 80 MG TAB PO SCH (22:45)
[2021-01-03] MEDS: SODIUM CHLORIDE 0.9% 1,000 ML IV SCH ×2 (04:59→21:15)
[2021-01-03] MEDS ORDERED: LACTATED RINGERS 1,000 ML IV SCH (06:00)
[2021-01-03] MEDS ORDERED: LIDOCAINE 1% (10MG/ML) FOR IV START INTRADERMA PRN (06:00)
[2021-01-03] MEDS: metFORMIN 850 MG TAB PO SCH ×2 (07:26→17:10)
[2021-01-03] MEDS: HEPARIN SODIUM,PORCINE 5,000 UNIT/ML 1 ML VIAL SQ SCH ×2 (07:26→21:14)
[2021-01-03] MEDS: PANTOPRAZOLE 40 MG/10 ML VIAL IVP SCH ×2 (07:34→21:14)
[2021-01-03 07:35] LABS: Glucose,Whole Blood 88 mg/dL (75-99)
[2021-01-03] MEDS: amLODIPine 10 MG TAB PO SCH (07:35)
[2021-01-03] MEDS: LOSARTAN 50 MG TAB PO SCH (07:35)
[2021-01-03] MEDS: FAMOTIDINE 20 MG TAB PO SCH ×2 (07:35→21:14)
[2021-01-03] MEDS: CHOLECALCIFEROL 25 MCG (1000 IU) TABLET PO SCH ×2 (07:35→21:14)
[2021-01-03] MEDS: ASPIRIN 81 MG PO SCH (07:35)
[2021-01-03] MEDS: methIMAzole 5 MG TAB PO SCH (07:36)
[2021-01-03] MEDS: PARoxetine 20 MG TAB PO SCH (07:36)
[2021-01-03 08:32] VITALS: RESP 16
[2021-01-03 09:01] LABS: African American GFR (CKD) >90 (>60 ml/min/1.73 sqM); Anion Gap 7 mmol/L; Blood Urea Nitrogen 5 mg/dL (7-17); Calcium 9.7 mg/dL (8.4-10.2); Carbon Dioxide 26 mmol/L (22-30); Chloride 106 mmol/L (98-107); Glucose 120 mg/dL (74-99); Non-African American GFR(CKD) 80 (>60 ml/min/1.73 sqM); Potassium 3.6 mmol/L (3.5-5.1); Sodium 139 mmol/L (137-145)
[2021-01-03 12:16] LABS: Glucose,Whole Blood 85 mg/dL (75-99)
[2021-01-03] MEDS ORDERED: IV FLUID CONTINUATION 1,000 ML IV ONE ×2 (13:56)
[2021-01-03] MEDS ORDERED: PROPOFOL 10 MG/ML 20 ML VIAL IV ONE (14:03)
--- NOTE | 2021-01-03 14:24 | P.PCN ---
Date of Procedure: 01/03/21 Procedure(s) Performed: BRIEF HISTORY: Patient is a 85-year-old pleasant female admitted hospital with lower abdominal pain for the last few weeks duration. She had an upper endoscopy done 2 days ago that showed mild gastritis. She is scheduled for colonoscopy to evaluate further. PROCEDURE PERFORMED: Colonoscopy snare polypectomy. PREOPERATIVE DIAGNOSIS: Chronic lower abdominal pain. IV sedation per Anesthesia. PROCEDURE: After informed consent was obtained, the patient, was brought into the endoscopy unit. IV sedation was administered by Anesthesia under continuous monitoring. Digital rectal examination was normal. Initially the Olympus CF-160 flexible video colonoscope was then inserted in the rectum, gradually advanced into the cecum without any difficulty. Careful examination was performed as the scope was gradually being withdrawn. Ileocecal valve and the appendiceal orifice were visualized and appeared normal. Prep was excellent. Mucosa of the cecum, appeared normal. In the ascending colon there was a 5 limited polyp removed by snare polypectomy. Rest of the ascending colon, transverse colon, descending colon, appeared normal. In the sigmoid: There was a 3 mm and 7 mm polyp removed by snare polypectomy. Rest of the sigmoid colon, and rectum appeared normal. Retroflexion was performed in the rectum and no lesions were seen. The patient tolerated the procedure well. IMPRESSION: 5 mm ascending colon polyp status post polypectomy 3 mm and 7 mm sigmoid polyp status post polypectomy RECOMMENDATIONS: Findings of this examination were discussed with the patient . She was advised to follow with the biopsy results. Diet will be advanced as tolerated..
[2021-01-03 16:43] LABS: Glucose,Whole Blood 161 mg/dL (75-99)
[2021-01-03] MEDS ORDERED: SIMETHICONE 80 MG CHEWABLE PO PRN (16:51)
[2021-01-03] MEDS ORDERED: SIMETHICONE 80 MG CHEWABLE PO SCH (18:00)
--- NOTE | 2021-01-03 19:11 | XR ---
EXAMINATION TYPE: XR abdomen 1V DATE OF EXAM: 01/03/2021 COMPARISON: 10/26/2016 HISTORY: Burning sensation TECHNIQUE: 2 views supine FINDINGS: There is no sign of intestinal obstruction or pneumoperitoneum. Fecal pattern is normal. Th ere is mild lumbar levoscoliosis. There is 2 cm right upper quadrant calcification consistent with so litary calcified gallstone. There are no pathologic calcifications over the kidneys. IMPRESSION: Nonacute abdomen. Cholelithiasis. No change.
[2021-01-03] MEDS: DONEPEZIL 10 MG TAB PO SCH (21:14)
[2021-01-03] MEDS: PRAVASTATIN SODIUM 80 MG TAB PO SCH (21:15)
[2021-01-04 07:09] LABS: Glucose,Whole Blood 91 mg/dL (75-99)
[2021-01-04 07:42] VITALS: BP 122/54; PULSE 56; TEMP 98
[2021-01-04] MEDS: FAMOTIDINE 20 MG TAB PO SCH (08:23)
[2021-01-04] MEDS: ASPIRIN 81 MG PO SCH (08:23)
[2021-01-04] MEDS: methIMAzole 5 MG TAB PO SCH (08:24)
[2021-01-04] MEDS: CHOLECALCIFEROL 25 MCG (1000 IU) TABLET PO SCH (08:24)
[2021-01-04] MEDS: HEPARIN SODIUM,PORCINE 5,000 UNIT/ML 1 ML VIAL SQ SCH (08:24)
[2021-01-04] MEDS: LOSARTAN 50 MG TAB PO SCH (08:24)
[2021-01-04] MEDS: metFORMIN 850 MG TAB PO SCH (08:24)
[2021-01-04] MEDS: amLODIPine 10 MG TAB PO SCH (08:24)
[2021-01-04] MEDS: PARoxetine 20 MG TAB PO SCH (08:24)
[2021-01-04] MEDS: PANTOPRAZOLE 40 MG/10 ML VIAL IVP SCH (08:25)
[2021-01-04 11:20] LABS: Glucose,Whole Blood 109 mg/dL (75-99)
--- NOTE | 2021-01-04 13:33 | P.DS ---
Providers Date of admission: 12/30/20 00:35 Attending physician: Mehrdad Waldron Consults: 12/29/20 23:30 Consult Physician Routine Consulting Provider: Rhianna Phillips Consult Reason/Comments: abdominal pain; anorexia Do you want consulting provider notified?: Yes Primary care physician: Mehrdad Waldron - Discharge Diagnosis(es) (1) Abdominal pain Current Visit: Yes Status: Acute (2) Diabetes Current Visit: No Status: Acute Hospital Course: This is a discharge from a 5-year-old white female with dementia who who came in for significant abdominal pain. The patient ended up having EGD and colonoscopy which is nominal. Prior to discharge she developed significant abdominal pain. After being given appropriate symptomatic treatment medication, the patient did quite well and is not tolerating diet without difficulty Patient Condition at Discharge: Serious Plan - Discharge Summary Discharge Rx Participant: No New Discharge Prescriptions: New Famotidine [Pepcid] 20 mg PO BID #60 tab Continue metFORMIN HCL [Glucophage] 850 mg PO BID-W/MEALS PARoxetine [Paxil] 20 mg PO DAILY Aspirin 81 mg PO DAILY Losartan/Hydrochlorothiazide [Hyzaar 100-12.5 Tablet] 1 tab PO DAILY Pravastatin Sodium 80 mg PO HS amLODIPine [Norvasc] 10 mg PO DAILY LORazepam [Ativan] 0.5 mg PO DAILY PRN PRN Reason: Anxiety Methimazole [Tapazole] 5 mg PO DAILY Donepezil HCl [Aricept] 10 mg PO HS Ergocalciferol (Vitamin D2) [Vitamin D2 (2000 Iu)] 50 mcg PO BID Docusate [Colace] 100 mg PO DAILY #10 capsule Ondansetron [Zofran ODT] 4 mg PO Q8HR PRN #10 tab PRN Reason: Nausea Discharge Medication List PARoxetine [Paxil] 20 mg PO DAILY 08/10/14 [History] metFORMIN HCL [Glucophage] 850 mg PO BID-W/MEALS 08/10/14 [History] Aspirin 81 mg PO DAILY 12/07/14 [History] Losartan/Hydrochlorothiazide [Hyzaar 100-12.5 Tablet] 1 tab PO DAILY 08/24/16 [History] Pravastatin Sodium 80 mg PO HS 05/01/17 [History] amLODIPine [Norvasc] 10 mg PO DAILY 08/08/17 [History] LORazepam [Ativan] 0.5 mg PO DAILY PRN 08/27/17 [History] Methimazole [Tapazole] 5 mg PO DAILY 09/17/17 [History] Donepezil HCl [Aricept] 10 mg PO HS 12/12/20 [History] Ergocalciferol (Vitamin D2) [Vitamin D2 (2000 Iu)] 50 mcg PO BID 12/12/20 [History] Docusate [Colace] 100 mg PO DAILY #10 capsule 12/17/20 [Rx] Ondansetron [Zofran ODT] 4 mg PO Q8HR PRN #10 tab 12/17/20 [Rx] Famotidine [Pepcid] 20 mg PO BID #60 tab 01/03/21 [Rx] Follow up Appointment(s)/Referral(s): Mehrdad Waldron MD [Primary Care Provider] - 1-2 days Rhianna Phillips MD [STAFF PHYSICIAN] - 1 Week (biopsy results.)
--- NOTE | 2021-01-04 13:47 | P.PN ---
Subjective Progress Note Date: 01/04/21 Principal diagnosis: Abdominal pain, decreased appetite This is a pleasant 85 year old lady who came in to the hosptial for complaints of abdominal pain, nausea, and decreased appetite. She was recently hospitalized for the same. CT of abdomen showed gallstone, otherwise normal. She underwent an upper endoscopy yesterday with findings of mild antral gastritis and duodenitis. Streaky the patient underwent colonoscopy with findings that included polyp with polypectomy. The patient had reported pain through the evening and an abdominal x-ray was ordered. X-ray with no acute findings. Patient is seen and examined at the bedside. She tolerated her breakfast well. She denies any abdominal pain, nausea, or vomiting. Denies any rectal bleeding or melena. Objective - Vital Signs Vital signs: Vital Signs Temp 98 F 01/04/21 07:00 Pulse 56 L 01/04/21 07:00 Resp 16 01/04/21 07:00 BP 122/54 01/04/21 07:00 Pulse Ox 94 L 01/04/21 07:00 Intake & Output 01/03/21 01/04/21 01/04/21 18:59 06:59 18:59 Intake Total 200 240 236 Output Total 300 Balance 200 -60 236 Weight 77.111 kg Intake: IV 200 Oral 240 236 Output: Urine 300 Other: Voiding Method Toilet Toilet Toilet # Voids 4 1 - Exam Appears comfortable, is alert and appears in no acute distress. HEENT: Atraumatic, trachea midline, no oral lesions. Lungs : Clear to ausculation Heart: Regular rate and rhythm Abdomen: Soft, nontender, non distended with bowel sounds. Extremities: No pedal edema. Skin: No rashes. No jaundice. Neurologic: Alert and orientated. - Labs CBC & Chem 7: 01/02/21 04:39 01/03/21 08:18 Labs: Abnormal Lab Results - Last 24 Hours (Table) 01/03/21 Range/Units 16:41 POC Glucose (mg/dL) 161 H (75-99) mg/dL Assessment and Plan Assessment: 1. Abdominal pain: This is a lady admitted to the hospital with complaints of nausea, abdominal pain, and decreased appetite for the last two weeks duration. Recent Ct of abdomen showed gallstones otherwise no other significant findings. She underwent upper endoscopy yesterday which revealed mild antral gastritis and duodenitis. She underwent colonoscopy which was significant for polyp and polypectomy otherwise normal colon. 2. Diabetes mellitus 3. Hypertension and Hyperlipidemia Plan: 1. Supportive care 2. Regular diet 3. East is status post EGD and colonoscopy 4. Patient to follow-up with gastroenterology in 1-2 weeks for biopsy results 5. Continue Protonix 6. Patient may be discharged home from a gastroenterology standpoint Thank you for this consultation Dr. Beverley Phillips I agree with the dictator's note, documented as a scribe by Ashanti LEMA
[2021-01-04] MEDS ORDERED: PANTOPRAZOLE 40 MG TABLET PO SCH (21:00)
== END 2021-01-04 14:29 ==
LOC: EC 20:54 → 6NMEDSUR 12-30 00:35
PROVIDERS: ADMIT Family Medicine; ATTEND Family Medicine
DX: R10.84 Generalized abdominal pain (principal); R10.13 Epigastric pain; K29.70 Gastritis, unspecified, without bleeding; K29.80 Duodenitis without bleeding; R53.1 Weakness; D72.829 Elevated white blood cell count, unspecified; K31.9 Disease of stomach and duodenum, unspecified; K63.5 Polyp of colon; K80.20 Calculus of gallbladder without cholecystitis without obstruction; E11.9 Type 2 diabetes mellitus without complications; E78.5 Hyperlipidemia, unspecified; F03.90 Unspecified dementia, unspecified severity, without behavioral disturbance, psychotic disturbance, mood disturbance, and anxiety; I10 Essential (primary) hypertension; E04.2 Nontoxic multinodular goiter; M19.90 Unspecified osteoarthritis, unspecified site; F32.9 Major depressive disorder, single episode, unspecified; R63.0 Anorexia; G93.9 Disorder of brain, unspecified; Z20.828 Contact with and (suspected) exposure to other viral communicable diseases; D69.6 Thrombocytopenia, unspecified; E66.9 Obesity, unspecified; Z68.31 Body mass index [BMI] 31.0-31.9, adult; E05.90 Thyrotoxicosis, unspecified without thyrotoxic crisis or storm; E78.00 Pure hypercholesterolemia, unspecified; Z79.84 Long term (current) use of oral hypoglycemic drugs; Z79.82 Long term (current) use of aspirin; Z79.899 Other long term (current) drug therapy; Z85.820 Personal history of malignant melanoma of skin; Z90.710 Acquired absence of both cervix and uterus; Z87.19 Personal history of other diseases of the digestive system; Z82.49 Family history of ischemic heart disease and other diseases of the circulatory system
CPT/HCPCS: 96376; 96372 ×2; 96375 ×2; 96374; 99285; 36415; 93005; 84439; 88305 ×2; 80053; 80048 ×4; 84443; 83605; 83690; 84484; 85025 ×4; 81001; 87635; 74018; 43239; 45385; G0378 ×6; J1644 ×6; J2405; J2270; J2704 ×2; C9113 ×6

== ENCOUNTER → 2021-03-07 | Outpatient (CLI) | payer MEDICARE | END | disposition home or self-care (01) | LOC: LABWHC1 09:39 | PROVIDERS: ATTEND Internal Medicine Endocrinology, Diabetes & Metabolism | DX: E05.90 Thyrotoxicosis, unspecified without thyrotoxic crisis or storm (principal) | CPT/HCPCS: 36415; 84439; 84443; 84480 ==

== ENCOUNTER → 2021-07-24 | Outpatient (CLI) | payer MEDICARE ==
[2021-07-25 03:52] LABS: T4, Free (Free Thyroxine) 1.1 ng/dL (0.80-1.80)
== END | disposition home or self-care (01) ==
LOC: LABWHC1 15:07
PROVIDERS: ATTEND Internal Medicine Endocrinology, Diabetes & Metabolism
DX: E05.90 Thyrotoxicosis, unspecified without thyrotoxic crisis or storm (principal)
CPT/HCPCS: 36415; 84439; 84443; 84480

== ENCOUNTER → 2021-08-30 | Outpatient (CLI) | payer MEDICARE ==
[2021-08-30 19:11] LABS: Folate, Serum >20.00 ng/mL (4.40-31.00)
== END | disposition home or self-care (01) ==
LOC: LABWHC1 10:18
PROVIDERS: ATTEND Psychiatry & Neurology Neurology
DX: E11.40 Type 2 diabetes mellitus with diabetic neuropathy, unspecified (principal); F03.90 Unspecified dementia, unspecified severity, without behavioral disturbance, psychotic disturbance, mood disturbance, and anxiety; Z79.899 Other long term (current) drug therapy
CPT/HCPCS: 36415; 82607; 82746; 86780

== ENCOUNTER → 2021-10-29 | Outpatient (CLI) | payer MEDICARE ==
--- NOTE | 2021-10-29 11:58 | US ---
EXAMINATION TYPE: US thyroid st tissue head/neck DATE OF EXAM: 10/29/2021 COMPARISON: 04/07/2020 CLINICAL HISTORY: E04.2 Nontoxic multinodular goiter. GLAND SIZE: Right Lobe: 4.0x1.9x2.2 cm Overall Parenchyma: homogenous Left Lobe: 5.4x3.8x4.2 cm Overall Parenchyma: homogeneous Isthmus Thickness: 0.5 cm NODULES RIGHT: # of nodules measured on right: 3 1. 06 X 0.5 x 0.4 cm, upper mid, solid or almost completely solid, hypoechoic nodule, which is wide r than tall, with Calcified margins. Prior size: 0.5 x 0.5 x 0.5 cm 2. 1.6 X 1.6 x 1.6 cm, mid mid, solid or almost completely solid, hypoechoic nodule, which is wider than tall, with Calcified margins. TR 4 Prior size: 1.3 x 1.5 x 1.5 cm 3. 1.1 X 1.0 x 0.7 cm, lower mid, solid or almost completely solid, hypoechoic nodule, which is wid er than tall, with smooth margins, without echogenic foci. Prior size: 0.8 x 0.8 x 0.7 cm LEFT: # of nodules measured on left: 1 1. 4.8 X 4.1 x 3.3 cm, mid mid, spongiform, hypoechoic nodule, which is wider than tall, with ill-d efined margins, without echogenic foci. Prior size: 4.1 x 3.5 x 3.4 cm ISTHMUS: # of nodules measured in the isthmus: 0 Bilateral neck scanned, no evidence of lymphadenopathy. IMPRESSION: Moderately suspicious nodule right lobe thyroid. Biopsy is recommended 2017 ACR TI-RADS LEVEL: TR-RADS 4 - Moderately Suspicious: Follow if > 1 cm, FNA if > 1.5 cm *Highest TI-RADS level nodule reported
[2021-10-29 12:18] LABS: T4, Free (Free Thyroxine) 0.91 ng/dL (0.78-2.19)
== END | disposition home or self-care (01) ==
LOC: RADUSWWP 10:35
PROVIDERS: ATTEND Internal Medicine Endocrinology, Diabetes & Metabolism
DX: E04.2 Nontoxic multinodular goiter (principal); E05.90 Thyrotoxicosis, unspecified without thyrotoxic crisis or storm
CPT/HCPCS: 36415; 76536; 84439; 84443; 84480

== ENCOUNTER → 2022-06-03 | Outpatient (CLI) | payer MEDICARE ==
[2022-06-03 14:36] LABS: T4, Free (Free Thyroxine) 0.96 ng/dL (0.800-1.800)
== END | disposition home or self-care (01) ==
LOC: LABWHC1 09:23
PROVIDERS: ATTEND Internal Medicine Endocrinology, Diabetes & Metabolism
DX: E05.90 Thyrotoxicosis, unspecified without thyrotoxic crisis or storm (principal)
CPT/HCPCS: 36415; 84439; 84443; 84480

== ENCOUNTER → 2022-12-04 | Outpatient (CLI) | payer MEDICARE ==
[2022-12-05 10:27] LABS: T4, Free (Free Thyroxine) 1.06 ng/dL (0.800-1.800)
== END | disposition home or self-care (01) ==
LOC: LABWHC1 12:44
PROVIDERS: ATTEND Internal Medicine Endocrinology, Diabetes & Metabolism
DX: E05.90 Thyrotoxicosis, unspecified without thyrotoxic crisis or storm (principal)
CPT/HCPCS: 36415; 84439; 84443; 84480

== ENCOUNTER → 2023-03-07 | Outpatient (CLI) | payer MEDICARE ==
--- NOTE | 2023-03-07 14:25 | US ---
EXAMINATION TYPE: US thyroid st tissue head/neck DATE OF EXAM: 03/07/2023 COMPARISON: US 2020 CLINICAL INDICATION: Female, 87 years old with history of E04.2 NONTOXIC MULTINODULAR GOITER; GLAND SIZE: Right Lobe: 4.0 x 1.6 x 2.1 cm Overall Parenchyma: heterogenous Left Lobe: 6.1 x 3.9 x 4.3 cm, enlarged Overall Parenchyma: heterogeneous Isthmus Thickness: 0.4 cm NODULES RIGHT: # of nodules measured on right: 3 1. 0.5 X 0.4 x 0.5 cm, upper lateral, solid or almost completely solid, hypoechoic nodule, which is wider than tall, with calcified margins. Prior size: 0.5 x 0.4 x 0.5 cm 2. 1.6 X 1.5 x 1.5 cm, mid, solid or almost completely solid, hypoechoic nodule, which is wider curtis n tall, with calcified margins. Prior size: 1.6 x 1.6 x 1.6 cm 3. 1.0 X 0.8 x 1.0 cm, lower medial, solid or almost completely solid, hypoechoic nodule, which is wider than tall, with smooth margins, without echogenic foci. Prior size: 1.1 x 0.7 x 1.0 cm LEFT: # of nodules measured on left: 1 1. 3.6 X 2.3 x 3.1 cm, mid, solid or almost completely solid, hypoechoic nodule, which is taller th an wide, with ill-defined margins, without echogenic foci. TR 3 Prior size: 4.8 x 3.3 x 4.1 cm ISTHMUS: # of nodules measured in the isthmus: 0 Bilateral neck scanned, no evidence of lymphadenopathy. IMPRESSION: 1. Mildly suspicious nodule left lobe thyroid. Fine-needle aspiration is recommended 2017 ACR TI-RADS LEVEL: TR-RADS 3 - Mildly Suspicious: Follow if > 1.5 cm, FNA if > 2.5 cm *Highest TI-RADS level nodule reported
[2023-03-08 02:42] LABS: T4, Free (Free Thyroxine) 1.04 ng/dL (0.800-1.800)
== END | disposition home or self-care (01) ==
LOC: RADUSWWP 13:25
PROVIDERS: ATTEND Internal Medicine Endocrinology, Diabetes & Metabolism
DX: E04.2 Nontoxic multinodular goiter (principal); E05.90 Thyrotoxicosis, unspecified without thyrotoxic crisis or storm
CPT/HCPCS: 76536; 84439; 84443; 84480

== ENCOUNTER 2023-03-13 09:51 | Emergency (ER) | payer MEDICARE ==
[2023-03-13 09:56] VITALS: TEMP 98
--- NOTE | 2023-03-13 11:09 | XR ---
EXAMINATION TYPE: XR wrist complete RT DATE OF EXAM: 03/13/2023 CLINICAL HISTORY: pain TECHNIQUE: Frontal, lateral and oblique images of the right wrist are obtained. COMPARISON: None. FINDINGS: There is no acute fracture/dislocation evident. The joint spaces appear within normal limits. Soft t issue swelling is noted. IMPRESSION: There is no acute fracture or dislocation seen. ICD 10 NO FRACTURE, INITIAL EVALUATION
--- NOTE | 2023-03-13 11:39 | ED ---
Upper Extremity HPI - General Chief Complaint: Extremity Injury, Upper Stated Complaint: Fell L arm injury Time Seen by Provider: 03/13/23 09:56 Source: patient, RN notes reviewed Mode of arrival: wheelchair Limitations: no limitations - History of Present Illness Initial Comments: 87-year-old female presents emergency Department with chief complaint of trip and fall. Patient has complaints of right wrist injury no head injury no loss conscious no other extremity injury patient has swelling, bruising of the right wrist. - Related Data Home Medications Medication Instructions Recorded Confirmed PARoxetine [Paxil] 20 mg PO DAILY 08/10/14 12/29/20 metFORMIN HCL [Glucophage] 850 mg PO BID-W/MEALS 08/10/14 12/29/20 Aspirin 81 mg PO DAILY 12/07/14 12/29/20 Losartan/Hydrochlorothiazide 1 tab PO DAILY 08/24/16 12/29/20 [Hyzaar 100-12.5 Tablet] Pravastatin Sodium 80 mg PO HS 05/01/17 12/29/20 amLODIPine [Norvasc] 10 mg PO DAILY 08/08/17 12/29/20 LORazepam [Ativan] 0.5 mg PO DAILY PRN 08/27/17 12/29/20 methIMAzole [Tapazole] 5 mg PO DAILY 09/17/17 12/29/20 Donepezil HCl [Aricept] 10 mg PO HS 12/12/20 12/29/20 Ergocalciferol (Vitamin D2) 50 mcg PO BID 12/12/20 12/29/20 [Vitamin D2 (2000 Iu)] Previous Rx's Medication Instructions Recorded Docusate [Colace] 100 mg PO DAILY #10 capsule 12/17/20 Ondansetron [Zofran ODT] 4 mg PO Q8HR PRN #10 tab 12/17/20 Famotidine [Pepcid] 20 mg PO BID #60 tab 01/03/21 Allergies Allergy/AdvReac Type Severity Reaction Status Date / Time No Known Allergies Allergy Verified 03/13/23 09:55 Review of Systems ROS Statement: Those systems with pertinent positive or pertinent negative responses have been documented in the HPI. ROS Other: All systems not noted in ROS Statement are negative. 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 Previous thyroid nodules. History of Any Multi-Drug Resistant Organisms: None Reported Past Surgical History: Hysterectomy Past Anesthesia/Blood Transfusion Reactions: No Reported Reaction Past Psychological History: No Psychological Hx Reported Smoking Status: Never smoker Past Alcohol Use History: None Reported Past Drug Use History: None Reported - Past Family History Father Family Medical History: Myocardial Infarction ([place]) General Exam Limitations: no limitations General appearance: alert, in no apparent distress Head exam: Present: atraumatic, normocephalic, normal inspection Respiratory exam: Present: normal lung sounds bilaterally. Absent: respiratory distress, wheezes, rales, rhonchi, stridor Cardiovascular Exam: Present: regular rate, normal rhythm, normal heart sounds. Absent: systolic murmur, diastolic murmur, rubs, gallop, clicks Extremities exam: Present: other (Right wrist there is swelling, ecchymosis and tenderness palpation no forearm tenderness proximal to the area) Course Vital Signs 03/13/23 03/13/23 09:52 11:53 Temperature 98 F 98 F Pulse Rate 78 76 Respiratory 20 18 Rate Blood Pressure 129/67 125/76 O2 Sat by Pulse 99 99 Oximetry Medical Decision Making - Medical Decision Making Was pt. sent in by a medical professional or institution ([facility], ERECTOR OPERATOR, urgent care, hospital, or custodial...) When possible be specific @ -No Did you speak to anyone other than the patient for history (EMS, parent, family, police, friend...)? What history was obtained from this source @ -No Did you review nursing and triage notes (agree or disagree)? Why? @ -I reviewed and agree with nursing and triage notes Were old charts reviewed (outside hosp., previous admission, EMS record, old EKG, old radiological studies, urgent care reports/EKG's, custodial records)? Report findings @ -No old charts were reviewed Differential Diagnosis (chest pain, altered mental status, abdominal pain women, abdominal pain men, vaginal bleeding, weakness, fever, dyspnea, syncope, headache, dizziness, GI bleed, back pain, seizure, CVA, palpatations, mental health, musculoskeletal)? @ -Right wrist sprain, right wrist fracture EKG interpreted by me (3pts min.). @ -None X-rays interpreted by me (1pt min.). @ -X-ray of the right wrist shows no acute fracture CT interpreted by me (1pt min.). @ -None done U/S interpreted by me (1pt. min.). @ -None done What testing was considered but not performed or refused? (CT, X-rays, U/S, labs)? Why? @ -None What meds were considered but not given or refused? Why? @ -None Did you discuss the management of the patient with other professionals (professionals i.e. , PA, ERECTOR OPERATOR, lab, RT, psych nurse, social media designer, ticket attendant, teacher, medical information officer, welfare case worker)? Give summary @ -No Was smoking cessation discussed for >3mins.? @ -No Was critical care preformed (if so, how long)? @ -No Were there social determinants of health that impacted care today? How? (Homelessness, low income, unemployed, alcoholism, drug addiction, transportation, low edu. Level, literacy, decrease access to med. care, assisted, rehab)? @ -No Was there de-escalation of care discussed even if they declined (Discuss DNR or withdrawal of care, Hospice)? DNR status @ -No What co-morbidities impacted this encounter? (DM, HTN, Smoking, COPD, CAD, Cancer, CVA, ARF, Chemo, Hep., AIDS, mental health diagnosis, sleep apnea, morbid obesity)? @ -None Was patient admitted / discharged? Hospital course, mention meds given and route, prescriptions, significant lab abnormalities, going to OR and other pertinent info. @ -Discharge patient is a right wrist sprain there is no acute fracture per radiology reading patient was a scheduled follow-up with orthopedics as needed. Undiagnosed new problem with uncertain prognosis? @ -No Drug Therapy requiring intensive monitoring for toxicity (Heparin, Nitro, Insulin, Cardizem)? @ -No Were any procedures done? @ -No Diagnosis/symptom? @ -Right wrist sprain Acute, or Chronic, or Acute on Chronic? @ -Acute Uncomplicated (without systemic symptoms) or Complicated (systemic symptoms)? @ -Uncomplicated Side effects of treatment? @ -No Exacerbation, Progression, or Severe Exacerbation? @ -No Poses a threat to life or bodily function? How? (Chest pain, [place], [place], pneumonia, PE, COPD, DKA, ARF, appy, cholecystitis, CVA, Diverticulitis, Homicidal, Suicidal, threat to staff... and all critical care pts) @ -No Disposition Clinical Impression: Contusion of right wrist Disposition: HOME SELF-CARE Condition: Stable Instructions (If sedation given, give patient instructions): Wrist Injury (ED) Additional Instructions: Please return to the Emergency Department if symptoms worsen or any other concerns. Is patient prescribed a controlled substance at d/c from ED?: No Referrals: Mehrdad Waldron MD [Primary Care Provider] - 1-2 days Time of Disposition: 11:38
[2023-03-13 11:54] VITALS: BP 125/76; PULSE 76; RESP 18
== END 2023-03-13 11:54 | disposition home or self-care (01) ==
LOC: EC 09:51
DX: S60.211A Contusion of right wrist, initial encounter (principal); E11.9 Type 2 diabetes mellitus without complications; E78.5 Hyperlipidemia, unspecified; I10 Essential (primary) hypertension; M19.90 Unspecified osteoarthritis, unspecified site; Z79.82 Long term (current) use of aspirin; Z79.84 Long term (current) use of oral hypoglycemic drugs; Z79.899 Other long term (current) drug therapy; W01.0XXA Fall on same level from slipping, tripping and stumbling without subsequent striking against object, initial encounter
CPT/HCPCS: 99284

== ENCOUNTER 2023-04-15 13:51 | Observation (INO) | payer MEDICARE ==
--- NOTE | 2023-04-15 16:51 | ED ---
Extremity Problem HPI - General Chief complaint: Extremity Injury, Lower Stated complaint: hip pain Time Seen by Provider: 04/15/23 16:22 Source: patient, family, RN notes reviewed Mode of arrival: wheelchair Limitations: no limitations - History of Present Illness Initial comments: This is an 88-year-old female who presents to the emergency department for left hip pain. Patient states that this started 2 days ago. Denies any known injury, she is with her niece who states that she has dementia and may have had an injury and was unaware of it. Patient states that she woke up and the pain was just there. It has not gotten any better since. She is now having difficulty walking. Denies any redness or swelling to the leg. She has not taking anything for pain. Additionally, her niece states that she wants to have her placed in a shelter. Her dementia is continuing to progress and she is on the maximum doses of her medications. She is starting to become more aggressive at home, and she is worried about her ability to care for her any longer. MD Complaint: extremity pain Onset/Timin -: days(s) Location: left, lower extremity - Related Data Home Medications Medication Instructions Recorded Confirmed PARoxetine [Paxil] 20 mg PO DAILY 08/10/14 04/15/23 metFORMIN HCL [Glucophage] 850 mg PO BID-W/MEALS 08/10/14 04/15/23 Losartan/Hydrochlorothiazide 1 tab PO DAILY 08/24/16 04/15/23 [Hyzaar 100-12.5 Tablet] Pravastatin Sodium 80 mg PO HS 05/01/17 04/15/23 methIMAzole [Tapazole] 5 mg PO Q48H 09/17/17 04/15/23 Donepezil HCl [Aricept] 10 mg PO HS 12/12/20 04/15/23 Memantine [Namenda] 10 mg PO BID 04/15/23 04/15/23 methIMAzole [Tapazole] 2.5 mg PO Q48H 04/15/23 04/15/23 Allergies Allergy/AdvReac Type Severity Reaction Status Date / Time No Known Allergies Allergy Verified 04/15/23 20:41 Review of Systems ROS Statement: Those systems with pertinent positive or pertinent negative responses have been documented in the HPI. ROS Other: All systems not noted in ROS Statement are negative. 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 Previous thyroid nodules. History of Any Multi-Drug Resistant Organisms: None Reported Past Surgical History: Hysterectomy Past Anesthesia/Blood Transfusion Reactions: No Reported Reaction Past Psychological History: No Psychological Hx Reported Smoking Status: Never smoker Past Alcohol Use History: None Reported Past Drug Use History: None Reported - Past Family History Father Family Medical History: Myocardial Infarction ([place]) General Exam Limitations: no limitations General appearance: alert, in no apparent distress Head exam: Present: atraumatic, normocephalic, normal inspection Respiratory exam: Present: normal lung sounds bilaterally. Absent: respiratory distress, wheezes, rales, rhonchi, stridor Cardiovascular Exam: Present: regular rate, normal rhythm, normal heart sounds. Absent: systolic murmur, diastolic murmur, rubs, gallop, clicks Extremities exam: Present: other (Tenderness to palpation over the left greater trochanter. Full active and passive range of motion of the left lower extremity. No swelling or erythema. 2+ DP and PT pulses.) Neurological exam: Present: alert, oriented X3, CN II-XII intact Psychiatric exam: Present: normal affect, normal mood Skin exam: Present: warm, dry, intact, normal color. Absent: rash Course Vital Signs 04/15/23 04/15/23 04/15/23 14:26 18:27 22:06 Temperature 98.3 F 97.8 F Pulse Rate 80 86 86 Respiratory 18 18 16 Rate Blood Pressure 106/71 146/81 130/81 O2 Sat by Pulse 96 98 97 Oximetry Medical Decision Making - Medical Decision Making This is an 88-year-old female who presents to the emergency department for left hip pain. Was pt. sent in by a medical professional or institution? @ -No Did you speak to anyone other than the patient for history? @ -Her niece Did you review nursing and triage notes? @ -Yes, and I agree, it is accurate with regards to the patient's symptoms. Were old charts reviewed? @ -No Differential Diagnosis? @ -Differential Hip Pain: Fracture, dislocation, contusion, DVT, this is not meant to be an all-inclusive list. EKG interpreted by me (3pts min.)? @ -Not obtained X-rays interpreted by me (1pt min.)? @ -X-ray of the left hip and femur obtained. My interpretation identifies no acute fractures or dislocations. CT interpreted by me (1pt min.)? @ -Not obtained U/S interpreted by me (1pt. min.)? @ -Duplex US of the left lower extremity obtained. My interpretation identifies no evidence of a DVT. What testing was considered but not performed? (CT, X-rays, U/S, labs)? Why? @ -None What meds were considered but not given? Why? @ -None Did you discuss the management of the patient with other professionals? @ -Yes, Dr. Waldron, who accepts the patient for admission. Did you reconcile home meds? @ -Yes Was smoking cessation discussed for >3mins.? @ -No Was critical care preformed (if so, how long)? @ -No Were there social determinants of health that impacted care today? How? (Homelessness, low income, unemployed, alcoholism, drug addiction, transportation, low edu. Level, literacy, decrease access to med. care, prison, rehab)? @ -No Was there de-escalation of care discussed even if they declined? (Discuss DNR or withdrawal of care, Hospice)? @ -No What co-morbidities impacted this encounter? (DM, HTN, Smoking, COPD, CAD, Cancer, CVA, Hep., AIDS, mental health diagnosis, sleep apnea, morbid obesity)? @ -DM, HTN, HLD, dementia Was patient admitted / discharged? @ -Admitted. X-ray of the left hip and femur obtained revealing no acute findings. Duplex ultrasound of the left lower extremity was obtained as well, revealing no evidence of a DVT. The patient's nurse ambulated the patient, and states that she was able to ambulate on her own without any difficulties. Her niece voiced concern of the dementia progressing and no longer being able to care for the patient. She is requesting shelter placement at this time. Case discussed with Dr. Waldron, who agrees to admit the patient for shelter placement. Case management consulted regarding this. Basic lab work and a urinalysis were obtained prior to the patient being admitted with no actionable findings noted. Undiagnosed new problem with uncertain prognosis? @ -None Drug Therapy requiring intensive monitoring for toxicity (Heparin, Nitro, Insulin, Cardizem)? @ -None Were any procedures done? @ -None Diagnosis/symptom? @ -Left hip pain Acute, or Chronic, or Acute on Chronic? @ -Acute Uncomplicated (without systemic symptoms) or Complicated (systemic symptoms)? @ -Uncomplicated Side effects of treatment? @ -None Exacerbation, Progression, or Severe Exacerbation] @ -Not applicable Poses a threat to life or bodily function? @ -No Diagnosis/symptom? @ -Dementia Acute, or Chronic, or Acute on Chronic? @ -Chronic Uncomplicated (without systemic symptoms) or Complicated (systemic symptoms)? @ -Complicated Side effects of treatment? @ -None Exacerbation, Progression, or Severe Exacerbation] @ -Progression Poses a threat to life or bodily function? @ -Yes This case was discussed in detail with the attending ED physician, Dr. Miller. Presentation, findings, and treatment plan discussed in detail as well. - Lab Data Result diagrams: 04/15/23 18:29 04/15/23 18:29 Lab Results 04/15/23 04/15/23 04/15/23 Range/Units 18:29 18:29 18:29 WBC 7.0 (3.8-10.6) k/uL RBC 4.88 (3.80-5.40) m/uL Hgb 14.4 (11.4-16.0) gm/dL Hct 43.6 (34.0-46.0) % MCV 89.3 (80.0-100.0) fL MCH 29.5 (25.0-35.0) pg MCHC 33.0 (31.0-37.0) g/dL RDW 13.2 (11.5-15.5) % Plt Count 91 L (150-450) k/uL MPV 8.7 Neutrophils % 65 % Lymphocytes % 22 % Monocytes % 9 % Eosinophils % 1 % Basophils % 0 % Neutrophils # 4.6 (1.3-7.7) k/uL Lymphocytes # 1.5 (1.0-4.8) k/uL Monocytes # 0.7 (0-1.0) k/uL Eosinophils # 0.1 (0-0.7) k/uL Basophils # 0.0 (0-0.2) k/uL Manual Slide Review Performed Sodium 138 (137-145) mmol/L Potassium 3.9 (3.5-5.1) mmol/L Chloride 102 (98-107) mmol/L Carbon Dioxide 28 (22-30) mmol/L Anion Gap 8 mmol/L BUN 16 (7-17) mg/dL Creatinine 0.72 (0.52-1.04) mg/dL Est GFR (CKD-EPI)AfAm 88 (>60 ml/min/1.73 sqM) Est GFR (CKD-EPI)NonAf 76 (>60 ml/min/1.73 sqM) Glucose 127 H (74-99) mg/dL Plasma Lactic Acid Simon (0.7-2.0) mmol/L Calcium 10.1 (8.4-10.2) mg/dL Total Bilirubin 0.7 (0.2-1.3) mg/dL AST 22 (14-36) U/L ALT 25 (4-34) U/L Alkaline Phosphatase 95 (38-126) U/L Creatine Kinase <20 L (30-135) U/L Total Protein 6.9 (6.3-8.2) g/dL Albumin 4.0 (3.5-5.0) g/dL Urine Color Yellow Urine Appearance Clear (Clear) Urine pH 5.5 (5.0-8.0) Ur Specific [place] 1.015 (1.001-1.035) Urine Protein Negative (Negative) Urine Glucose (UA) Negative (Negative) Urine Ketones Negative (Negative) Urine Blood Negative (Negative) Urine Nitrite Negative (Negative) Urine Bilirubin Negative (Negative) Urine Urobilinogen <2.0 (<2.0) mg/dL Ur Leukocyte Esterase Negative (Negative) 04/15/23 Range/Units 18:29 WBC (3.8-10.6) k/uL RBC (3.80-5.40) m/uL Hgb (11.4-16.0) gm/dL Hct (34.0-46.0) % MCV (80.0-100.0) fL MCH (25.0-35.0) pg MCHC (31.0-37.0) g/dL RDW (11.5-15.5) % Plt Count (150-450) k/uL MPV Neutrophils % % Lymphocytes % % Monocytes % % Eosinophils % % Basophils % % Neutrophils # (1.3-7.7) k/uL Lymphocytes # (1.0-4.8) k/uL Monocytes # (0-1.0) k/uL Eosinophils # (0-0.7) k/uL Basophils # (0-0.2) k/uL Manual Slide Review Sodium (137-145) mmol/L Potassium (3.5-5.1) mmol/L Chloride (98-107) mmol/L Carbon Dioxide (22-30) mmol/L Anion Gap mmol/L BUN (7-17) mg/dL Creatinine (0.52-1.04) mg/dL Est GFR (CKD-EPI)AfAm (>60 ml/min/1.73 sqM) Est GFR (CKD-EPI)NonAf (>60 ml/min/1.73 sqM) Glucose (74-99) mg/dL Plasma Lactic Acid Simon 1.6 (0.7-2.0) mmol/L Calcium (8.4-10.2) mg/dL Total Bilirubin (0.2-1.3) mg/dL AST (14-36) U/L ALT (4-34) U/L Alkaline Phosphatase (38-126) U/L Creatine Kinase (30-135) U/L Total Protein (6.3-8.2) g/dL Albumin (3.5-5.0) g/dL Urine Color Urine Appearance (Clear) Urine pH (5.0-8.0) Ur Specific [place] (1.001-1.035) Urine Protein (Negative) Urine Glucose (UA) (Negative) Urine Ketones (Negative) Urine Blood (Negative) Urine Nitrite (Negative) Urine Bilirubin (Negative) Urine Urobilinogen (<2.0) mg/dL Ur Leukocyte Esterase (Negative) - Radiology Data Radiology results: report reviewed, image reviewed Disposition Clinical Impression: Left hip pain, Dementia Disposition: ADMITTED IP TO THIS HOSP
--- NOTE | 2023-04-15 18:01 | XR ---
EXAMINATION TYPE: XR Hip Complete LT DATE OF EXAM: 04/15/2023 COMPARISON: None HISTORY: Pain TECHNIQUE: 2 view left hip FINDINGS: Femoral head articulates with the acetabulum. Mild joint space narrowing is present. No acu te fracture or dislocation is evident. Follow up exams can be performed as clinically indicated. IMPRESSION: 1. No acute osseous abnormality left hip. 2. Mild degenerative joint changes left hip
--- NOTE | 2023-04-15 18:03 | XR ---
EXAMINATION TYPE: XR femur LT DATE OF EXAM: 04/15/2023 COMPARISON: None HISTORY: Pain TECHNIQUE: 2 view left femur FINDINGS: Mild narrowing of the left hip joint space is present. No acute fractures or dislocations a re evident. Mild degenerative changes are at the medial compartment left knee. No joint effusions are evident. Some patellofemoral joint space narrowing is present. Vascular calcification is noted. IMPRESSION: 1. Mild degenerative changes of the left hip and left knee. 2. No acute osseous abnormality left femur
[2023-04-15 19:09] LABS: Basophils % (A) 0 %; Eosinophils # (A) 0.1 k/uL (0-0.7); Eosinophils % (A) 1 %; HCT 43.6 % (34.0-46.0); HGB 14.4 gm/dL (11.4-16.0); Lymphocytes # (A) 1.5 k/uL (1.0-4.8); Lymphocytes % (A) 22 %; MCH 29.5 pg (25.0-35.0); MCV 89.3 fL (80.0-100.0); Mean Platelet Volume 8.7; Monocytes # (A) 0.7 k/uL (0-1.0); Monocytes % (A) 9 %; Neutrophils # (A) 4.6 k/uL (1.3-7.7); Neutrophils % (A) 65 %; Platelet Count 91 k/uL (150-450); RBC 4.88 m/uL (3.80-5.40); RDW 13.2 % (11.5-15.5)
--- NOTE | 2023-04-15 19:20 | US ---
EXAMINATION TYPE: US venous doppler duplex LE LT DATE OF EXAM: 04/15/2023 6:05 PM COMPARISON: NONE CLINICAL INDICATION: Female, 88 years old with history of left leg/hip pain; Left hip/ lateral thigh pain x 1 week. No hx of DVT SIDE PERFORMED: Left TECHNIQUE: The lower extremity deep venous system is examined utilizing real time linear array sonog suyapa with graded compression, doppler sonography and color-flow sonography. VESSELS IMAGED: Common Femoral Vein Deep Femoral Vein Greater Saphenous Vein * Femoral Vein Popliteal Vein Small Saphenous Vein * Proximal Calf Veins (* superficial vessels) Left Leg: Negative for DVT IMPRESSION: 1 left lower extremity ultrasound negative for deep venous thrombosis.
[2023-04-15 19:27] LABS: ALT 25 U/L (4-34); AST 22 U/L (14-36); African American GFR (CKD) 88 (>60 ml/min/1.73 sqM); Alkaline Phosphatase 95 U/L (38-126); Anion Gap 8 mmol/L; Blood Urea Nitrogen 16 mg/dL (7-17); Calcium 10.1 mg/dL (8.4-10.2); Carbon Dioxide 28 mmol/L (22-30); Chloride 102 mmol/L (98-107); Creatine Kinase <20 U/L (30-135); Glucose 127 mg/dL (74-99); Non-African American GFR(CKD) 76 (>60 ml/min/1.73 sqM); Potassium 3.9 mmol/L (3.5-5.1); Sodium 138 mmol/L (137-145); Total Bilirubin 0.7 mg/dL (0.2-1.3); Total Protein 6.9 g/dL (6.3-8.2)
[2023-04-15 20:13] LABS: Appearance,Urine Clear (Clear); Bilirubin,Urine Negative (Negative); Blood,Urine Negative (Negative); Color,Urine Yellow; Glucose,Urine (UA) Negative (Negative); Ketones,Urine Negative (Negative); Leukocyte Esterase,Urine Negative (Negative); Nitrite,Urine Negative (Negative); PH, Urine 5.5 (5.0-8.0); Protein,Urine Negative (Negative); Specific Gravity,Urine 1.015 (1.001-1.035); Urobilinogen,Urine <2.0 mg/dL (<2.0)
[2023-04-15] MEDS ORDERED: NALOXONE 0.4 MG/ML 1 ML VIAL IV PRN (20:22)
[2023-04-15] MEDS ORDERED: ONDANSETRON 4 MG/2 ML VIAL IVP PRN (20:22)
[2023-04-15] MEDS ORDERED: HYDROcodone/APAP 5-325MG 1 EACH TAB PO PRN (20:22)
[2023-04-15] MEDS ORDERED: ACETAMINOPHEN TAB 325 MG TAB PO PRN (20:22)
[2023-04-16] MEDS: metFORMIN 850 MG TAB PO SCH ×2 (08:29→18:25)
[2023-04-16] MEDS: hydroCHLOROthiazide 12.5 MG CAP PO SCH (08:32)
[2023-04-16] MEDS: MEMANTINE 10 MG TAB PO SCH ×2 (08:32→21:01)
[2023-04-16] MEDS: LOSARTAN 50 MG TAB PO SCH (08:32)
[2023-04-16] MEDS: PARoxetine 20 MG TAB PO SCH (08:32)
[2023-04-16] MEDS: methIMAzole 5 MG TAB PO SCH (08:33)
--- NOTE | 2023-04-16 10:59 | P.HPIM ---
History of Present Illness H&P Date: 04/16/23 Chief Complaint: Right hip pain This is a 88-year-old white female with known history of hip pain. The patient has a known history of end-stage dementia with hypertension which is stable. However she does live alone and his having been more difficult to take care of. Her niece and family due to their best but they cannot watch her 24 7. She is disoriented today as well she is becoming more emotional and sometimes belligerent if not done right verbally abusive to her caregivers. They fear for her safety and she is admitted for appropriate placement. The patient has an underlying history of well-controlled diabetes and hyperthyroidism. 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 Previous thyroid nodules. History of Any Multi-Drug Resistant Organisms: None Reported Past Surgical History: Hysterectomy Past Anesthesia/Blood Transfusion Reactions: No Reported Reaction Past Psychological History: No Psychological Hx Reported Smoking Status: Never smoker Past Alcohol Use History: None Reported Past Drug Use History: None Reported - Past Family History Father Family Medical History: Myocardial Infarction ([place]) Medications and Allergies Home Medications Medication Instructions Recorded Confirmed Type PARoxetine [Paxil] 20 mg PO DAILY 08/10/14 04/15/23 History metFORMIN HCL [Glucophage] 850 mg PO BID-W/MEALS 08/10/14 04/15/23 History Losartan/Hydrochlorothiazide 1 tab PO DAILY 08/24/16 04/15/23 History [Hyzaar 100-12.5 Tablet] Pravastatin Sodium 80 mg PO HS 05/01/17 04/15/23 History methIMAzole [Tapazole] 5 mg PO Q48H 09/17/17 04/15/23 History Donepezil HCl [Aricept] 10 mg PO HS 12/12/20 04/15/23 History Memantine [Namenda] 10 mg PO BID 04/15/23 04/15/23 History methIMAzole [Tapazole] 2.5 mg PO Q48H 04/15/23 04/15/23 History Allergies Allergy/AdvReac Type Severity Reaction Status Date / Time No Known Allergies Allergy Verified 04/15/23 20:41 Physical Exam Vitals: Vital Signs Temp Pulse Pulse Resp BP BP Pulse Ox 04/16/23 07:00 97.9 F 65 16 140/64 93 L 04/16/23 02:00 73 11 L 136/71 91 L 04/16/23 00:19 69 14 142/76 96 04/15/23 23:15 135/69 93 L 04/15/23 23:01 96 04/15/23 22:06 97.8 F 86 16 130/81 97 04/15/23 18:27 86 18 146/81 98 04/15/23 14:26 98.3 F 80 18 106/71 96 Intake and Output 04/15/23 04/16/23 04/16/23 22:59 06:59 14:59 Other: Voiding Method Diaper # Voids 1 Weight 90.718 kg - Constitutional General appearance: cooperative, no acute distress, obese - EENT Eyes: EOMI - Neck Neck: no lymphadenopathy - Respiratory Respiratory: bilateral: CTA - Cardiovascular Rhythm: regular Heart sounds: normal: S1, S2 Abnormal Heart Sounds: no S3 Gallop - Integumentary Integumentary: no cellulitis - Psychiatric Psychiatric: no A&O x's 3, no intact judgment & insight Results CBC & Chem 7: 04/15/23 18:29 04/15/23 18:29 Labs: Abnormal Lab Results - Last 24 Hours (Table) 04/15/23 04/15/23 Range/Units 18:29 18:29 Plt Count 91 L (150-450) k/uL Glucose 127 H (74-99) mg/dL Creatine Kinase <20 L (30-135) U/L Thrombosis Risk Factor Assmnt - Choose All That Apply Any of the Below Risk Factors Present?: Yes Each Risk Factor Represents 3 Points: Age 75 years or older Thrombosis Risk Factor Assessment Total Risk Factor Score: 3 Thrombosis Risk Factor Assessment Level: Moderate Risk Assessment and Plan (1) Dementia Current Visit: Yes Status: Acute Code(s): F03.90 - UNSP DEMENTIA, UNSP SEVERITY, WITHOUT BEH/PSYCH/MOOD/ANX SNOMED Code(s): 24812371 (2) Left hip pain Current Visit: Yes Status: Acute Code(s): M25.552 - PAIN IN LEFT HIP SNOMED Code(s): 38392835 (3) Abdominal pain Current Visit: No Status: Acute Code(s): R10.9 - UNSPECIFIED ABDOMINAL PAIN SNOMED Code(s): 85100991 (4) Diabetes Current Visit: No Status: Acute Code(s): E11.9 - TYPE 2 DIABETES MELLITUS WITHOUT COMPLICATIONS SNOMED Code(s): 47098124 Plan: Hip pain from DDD. Diabetes. Element of dementia. Consult cyber policy and strategy planner for probable placement. Sliding scale. Reconcile medications. See orders otherwise. Prognosis is guarded secondary to multiple comorbidities. Time with Patient: Greater than 30
[2023-04-16] MEDS: DONEPEZIL 10 MG TAB PO SCH (21:01)
[2023-04-16] MEDS: PRAVASTATIN SODIUM 80 MG TAB PO SCH (21:01)
[2023-04-17] MEDS: LOSARTAN 50 MG TAB PO SCH (08:38)
[2023-04-17] MEDS: methIMAzole 5 MG TAB PO SCH (08:38)
[2023-04-17] MEDS: hydroCHLOROthiazide 12.5 MG CAP PO SCH (08:38)
[2023-04-17] MEDS: PARoxetine 20 MG TAB PO SCH (08:38)
[2023-04-17] MEDS: MEMANTINE 10 MG TAB PO SCH ×2 (08:38→20:08)
[2023-04-17] MEDS: metFORMIN 850 MG TAB PO SCH ×2 (08:38→17:50)
--- NOTE | 2023-04-17 08:51 | P.PN ---
Subjective Progress Note Date: 04/17/23 Principal diagnosis: hip pain This is an 88-year-old female who presented to the emergency room with complaints of hip pain. She also has a history of end-stage dementia, and hype rtension. She currently does live alone with family checking in on her often. Family reports she is becoming more disoriented and emotional and sometimes belligerent. Family also reports patient has been verbally abusive to her caregivers. They are unable to care for her 09/06 and are interested in placement. Objective - Vital Signs Vital signs: Vital Signs Temp 98.0 F 04/17/23 06:56 Pulse 76 04/17/23 06:56 Resp 15 04/17/23 06:56 BP 147/73 04/17/23 06:56 Pulse Ox 90 L 04/17/23 06:56 FiO2 Intake & Output 04/16/23 04/17/23 04/17/23 18:59 06:59 18:59 Intake Total 150 500 120 Balance 150 500 120 Intake: Oral 150 500 120 Other: Voiding Method Diaper # Voids 1 3 # Bowel Movements 1 - Constitutional General appearance: Present: cooperative, no acute distress - EENT Eyes: Present: PERRLA - Neck Neck: Present: normal ROM. Absent: lymphadenopathy, rigidity - Respiratory Respiratory: bilateral: CTA - Cardiovascular Rhythm: regular Heart sounds: normal: S1, S2 - Gastrointestinal General gastrointestinal: Present: soft. Absent: tenderness - Integumentary Integumentary: Present: normal, normal turgor - Psychiatric Psychiatric: Absent: A&O x's 3, intact judgment & insight - Labs CBC & Chem 7: 04/15/23 18:29 04/15/23 18:29 Assessment and Plan (1) Dementia Current Visit: Yes Status: Acute Code(s): F03.90 - UNSP DEMENTIA, UNSP SEVERITY, WITHOUT BEH/PSYCH/MOOD/ANX SNOMED Code(s): 31950049 (2) Left hip pain Current Visit: Yes Status: Acute Code(s): M25.552 - PAIN IN LEFT HIP SNOMED Code(s): 26868763 (3) Abdominal pain Current Visit: No Status: Acute Code(s): R10.9 - UNSPECIFIED ABDOMINAL PAIN SNOMED Code(s): 33838971 (4) Diabetes Current Visit: No Status: Acute Code(s): E11.9 - TYPE 2 DIABETES MELLITUS WITHOUT COMPLICATIONS SNOMED Code(s): 99052210 Plan: Continue to work on placement for patient. Will plan for discharge when placement is available. Patient seen and evaluated by nurse practitioner, physician in agreement with plan
[2023-04-17] MEDS: DONEPEZIL 10 MG TAB PO SCH (20:08)
[2023-04-17] MEDS: PRAVASTATIN SODIUM 80 MG TAB PO SCH (20:08)
[2023-04-18 07:50] LABS: Glucose,Whole Blood 201 mg/dL (70-110)
--- NOTE | 2023-04-18 07:56 | P.PN ---
Subjective Principal diagnosis: Hip pain with dementia This is an 88-year-old female essentially here for placement. From my understanding, she has significant benefits from the [facility] to cover expenses when she is placed in ECF. The patient is disoriented and pleasant today. No new complaint Objective - Vital Signs Vital signs: Vital Signs Temp 97.6 F 04/18/23 07:21 Pulse 63 04/18/23 07:21 Resp 16 04/18/23 07:21 BP 168/92 04/18/23 07:21 Pulse Ox 94 L 04/18/23 07:21 FiO2 Intake & Output 04/17/23 04/18/23 04/18/23 18:59 06:59 18:59 Intake Total 120 590 Balance 120 590 Intake: Oral 120 590 Other: Voiding Method Diaper # Voids 2 3 # Bowel Movements 1 - Constitutional General appearance: Present: no acute distress, obese - EENT Eyes: Absent: abnormal pupil - Neck Neck: Absent: lymphadenopathy - Respiratory Respiratory: bilateral: diminished - Cardiovascular Rhythm: regular Heart sounds: normal: S1, S2 Abnormal Heart Sounds: Absent: S3 Gallop - Gastrointestinal General gastrointestinal: Present: soft. Absent: tenderness - Labs CBC & Chem 7: 04/15/23 18:29 04/15/23 18:29 Labs: Abnormal Lab Results - Last 24 Hours (Table) 04/18/23 Range/Units 07:48 POC Glucose (mg/dL) 201 H (70-110) mg/dL Assessment and Plan (1) Dementia Current Visit: Yes Status: Acute Code(s): F03.90 - UNSP DEMENTIA, UNSP SEVERITY, WITHOUT BEH/PSYCH/MOOD/ANX SNOMED Code(s): 91801133 (2) Left hip pain Current Visit: Yes Status: Acute Code(s): M25.552 - PAIN IN LEFT HIP SNOMED Code(s): 16628328 (3) Abdominal pain Current Visit: No Status: Acute Code(s): R10.9 - UNSPECIFIED ABDOMINAL PAIN SNOMED Code(s): 30898995 (4) Diabetes Current Visit: No Status: Acute Code(s): E11.9 - TYPE 2 DIABETES MELLITUS WITHOUT COMPLICATIONS SNOMED Code(s): 67017052 Plan: Hip pain from DDD. Diabetes. Element of dementia. Essentially awaiting placement Sliding scale. Reconcile medications. See orders otherwise. Prognosis is guarded secondary to multiple comorbidities.
[2023-04-18] MEDS ORDERED: DEXTROSE 50% SYRINGE 50 ML IVP PRN ×2 (08:24)
[2023-04-18] MEDS: INSULIN ASPART (NovoLOG) 100 UNIT/ML VIAL SQ SCH ×4 (08:48→20:44)
[2023-04-18] MEDS: MEMANTINE 10 MG TAB PO SCH ×2 (08:49→20:44)
[2023-04-18] MEDS: LOSARTAN 50 MG TAB PO SCH (08:49)
[2023-04-18] MEDS: metFORMIN 850 MG TAB PO SCH ×2 (08:49→17:42)
[2023-04-18] MEDS: PARoxetine 20 MG TAB PO SCH (08:50)
[2023-04-18] MEDS: hydroCHLOROthiazide 12.5 MG CAP PO SCH (08:50)
[2023-04-18] MEDS: methIMAzole 5 MG TAB PO SCH (08:51)
[2023-04-18 11:09] LABS: Glucose,Whole Blood 271 mg/dL (70-110)
[2023-04-18 17:12] LABS: Glucose,Whole Blood 182 mg/dL (70-110)
[2023-04-18 20:41] LABS: Glucose,Whole Blood 201 mg/dL (70-110)
[2023-04-18] MEDS: PRAVASTATIN SODIUM 80 MG TAB PO SCH (20:44)
[2023-04-18] MEDS: DONEPEZIL 10 MG TAB PO SCH (20:44)
[2023-04-19 02:43] VITALS: RESP 16
[2023-04-19 07:06] LABS: Glucose,Whole Blood 164 mg/dL (70-110)
[2023-04-19 07:33] VITALS: BP 136/83; PULSE 79; TEMP 98.2
[2023-04-19] MEDS: metFORMIN 850 MG TAB PO SCH (08:52)
[2023-04-19] MEDS: methIMAzole 5 MG TAB PO SCH (08:52)
[2023-04-19] MEDS: MEMANTINE 10 MG TAB PO SCH (08:52)
[2023-04-19] MEDS: hydroCHLOROthiazide 12.5 MG CAP PO SCH (08:52)
[2023-04-19] MEDS: PARoxetine 20 MG TAB PO SCH (08:52)
[2023-04-19] MEDS: INSULIN ASPART (NovoLOG) 100 UNIT/ML VIAL SQ SCH (08:52)
[2023-04-19] MEDS: LOSARTAN 50 MG TAB PO SCH (08:52)
--- NOTE | 2023-04-19 11:55 | P.DS ---
Providers Date of admission: 04/15/23 20:23 Attending physician: Mehrdad Waldron Primary care physician: Mehrdad Waldron Hospital Course: Final Diagnosis Dementia, end stage with out behavioral disturbances Diabetes Mellitus type 2 with hyperglycemia, A1C is 8.1 Hypertension Hx of hyperlipidemia Hx of osteoarthritis with left hip pain History of hyperthyroidism GI prophylaxis Full Code Discharge Disposition Patient is stable for discharge to the ECF today patient will be discharging to [facility] today. Recommend to continue on same home medications and sliding scale insulin. Patient to follow up with Dr. Waldron on discharge. Hospital Course This is a 88-year-old white female with known history of hip pain. The patient has a known history of end-stage dementia, hypertension, diabetes and hyperthyroidism, however she does live alone and his having been more difficult to take care of. Her niece and family due to their best but they cannot watch her 24 7. They fear for her safety and she is admitted for appropriate placement as she is becoming increasingly confused at times and can become agitated with caregivers. Patient has been pleasant this hospital stay and has not required additional medications. A1C is 8.1 this admission and patient has continued on home metformin and additionally s/s insulin and blood sugar is now down to 160s. Labs are essentially unremarkable with exception of the hyperglycemia. Urinalysis is negative. Patient did have a venous doppler completed of the left leg which is negative for DVT. Patient also had a femur/hip xray done on the left side secondary to the complaints of hip pain on admission. Findings reveal mild degenerative changes of the left hip and knee. There are no acute osseous abnormality left femur. Patient to continue with oral tylenol as needed recommend to avoid narcotics if possible. Patient can discharge to subacute rehab today. Denies chest pain, no shortness of breath, denies nausea, vomiting or diarrhea. No dysuria. Tolerating diet and activity. Lungs are clear, S1 S2 auscultated, abdomen is soft and nontender. Please see medication reconciliation for a list of current medications. Thank you for allowing us to participate in the care of this patient. The impression and plan of care has been dictated by Kimberly Mobley, Nurse Practitioner as directed. Dr. Cooper MD I have performed a history and physical examination and medical decision making of this patient, discussed the same with the dictator, and agree with the dictators assessment and plan as written, documented as a scribe. Based on total visit time, I have performed more than 50% of this visit. Plan - Discharge Summary New Discharge Prescriptions: New Famotidine [Pepcid] 20 mg PO DAILY #30 tablet INSULIN ASPART (NovoLOG) [NovoLOG (formulary)] 0 unit SQ ACHS each Acetaminophen Tab [Tylenol] 650 mg PO Q6HR PRN tab PRN Reason: Mild Pain Or Fever > 100.5 Docusate [Colace] 100 mg PO DAILY #30 capsule Continue metFORMIN HCL [Glucophage] 850 mg PO BID-W/MEALS PARoxetine [Paxil] 20 mg PO DAILY Losartan/Hydrochlorothiazide [Hyzaar 100-12.5 Tablet] 1 tab PO DAILY Pravastatin Sodium 80 mg PO HS methIMAzole [Tapazole] 5 mg PO Q48H Donepezil HCl [Aricept] 10 mg PO HS Memantine [Namenda] 10 mg PO BID methIMAzole [Tapazole] 2.5 mg PO Q48H Discharge Medication List PARoxetine [Paxil] 20 mg PO DAILY 08/10/14 [History] metFORMIN HCL [Glucophage] 850 mg PO BID-W/MEALS 08/10/14 [History] Losartan/Hydrochlorothiazide [Hyzaar 100-12.5 Tablet] 1 tab PO DAILY 08/24/16 [History] Pravastatin Sodium 80 mg PO HS 05/01/17 [History] methIMAzole [Tapazole] 5 mg PO Q48H 09/17/17 [History] Donepezil HCl [Aricept] 10 mg PO HS 12/12/20 [History] Memantine [Namenda] 10 mg PO BID 04/15/23 [History] methIMAzole [Tapazole] 2.5 mg PO Q48H 04/15/23 [History] Acetaminophen Tab [Tylenol] 650 mg PO Q6HR PRN tab 04/19/23 [Rx] Docusate [Colace] 100 mg PO DAILY #30 capsule 04/19/23 [Rx] Famotidine [Pepcid] 20 mg PO DAILY #30 tablet 04/19/23 [Rx] INSULIN ASPART (NovoLOG) [NovoLOG (formulary)] 0 unit SQ ACHS each 04/19/23 [Rx] Follow up Appointment(s)/Referral(s): Mehrdad Waldron MD [Primary Care Provider] - 1-2 days Activity/Diet/Wound Care/Special Instructions: Patient medically cleared for DC to the ECF today recommend to continue same home medications on disharge. Patient to f/u with Dr. Waldron on discharge. Discharge Disposition: TRANSFER TO SNF/ECF
== END 2023-04-19 11:50 ==
LOC: EC 13:51 → 6NMEDSUR 20:23 → 1SOBS 04-16 00:32 → 5NMEDONC 04-16 18:46
PROVIDERS: ADMIT Family Medicine; ATTEND Family Medicine
DX: M16.11 Unilateral primary osteoarthritis, right hip (principal); F03.90 Unspecified dementia, unspecified severity, without behavioral disturbance, psychotic disturbance, mood disturbance, and anxiety; R10.9 Unspecified abdominal pain; G93.9 Disorder of brain, unspecified; E11.65 Type 2 diabetes mellitus with hyperglycemia; E78.5 Hyperlipidemia, unspecified; E03.9 Hypothyroidism, unspecified; Z85.820 Personal history of malignant melanoma of skin; Z86.39 Personal history of other endocrine, nutritional and metabolic disease; Z90.710 Acquired absence of both cervix and uterus; Z82.49 Family history of ischemic heart disease and other diseases of the circulatory system; Z79.84 Long term (current) use of oral hypoglycemic drugs; Z79.899 Other long term (current) drug therapy
CPT/HCPCS: 99285; 36415; 97162; 97166; 80053; 82550; 83605; 85025; 81003; 83036; 73502; 73552; 93971; G0378 ×6

== ENCOUNTER 2023-11-13 12:43 | Day surgery (SDC) | payer MEDICARE ==
[2023-11-13 13:50] VITALS: TEMP 97.6
[2023-11-13 14:14] VITALS: RESP 18
--- NOTE | 2023-11-13 14:32 | US ---
EXAMINATION TYPE: US FNA thyroid first lesion DATE OF EXAM: 11/13/2023 2:15 PM CLINICAL INDICATION:Female, 88 years old with history of E04.1, thyroid nodule. COMPARISON: None ATTENDING: Dr. Yao Shields PROCEDURE: Informed consent was obtained. The risks and benefits of the procedure were discussed with the patien t. The site was marked. Timeout procedure was performed Ultrasound imaging of the thyroid demonstrates left thyroid nodule The patient was prepped, draped in the usual sterile fashion, and locally anesthetized with 1% lidoca ine. Five fine needle aspiration were then performed with a 25 gauge needle. Samples were sent to [facility] pathology department for further analysis. Patient tolerated the procedure without incident and wa s sent home in stable condition. IMPRESSION: Successful ultrasound guided fine needle aspiration.
[2023-11-13 14:38] VITALS: BP 154/78; PULSE 77
== END 2023-11-13 14:50 | disposition home or self-care (01) ==
LOC: RADPROMAIN 12:43
PROVIDERS: ATTEND Otolaryngology
DX: E04.1 Nontoxic single thyroid nodule (principal)
CPT/HCPCS: 10005; 88173; 88305